=== PATIENT | male | born 1950 | race African-American/Black ===

== ENCOUNTER 2017-04-20 02:46 | Inpatient (IN) | payer MEDICARE, MEDICAID ==
[2017-04-20] VITALS (10 sets, daily range): BP systolic 69–140; BP diastolic 42–69
[~2017-04-20] VITALS: Ht 177.8 cm; Wt 68.1 kg
[~2017-04-20 02:46] MED LIST: ADULT LOW DOSE81 MG PO; ALBUTEROL 3 ML3 ML IH; AMERINET CHOICE1 G1 IV; AMLODIPINE10 M2 PO; ARICEPT10 MG GT; ARICEPT10 MG NG; ASPIRIN 81MG TA81 MG PO; AUGMENTIN 875 M1 TAB GT; BACLOFEN10 MG GT; BACLOFEN10 MG PO; BACLOFEN20 MG GT; BAZA PROTECT TP; CALMOSEPTINE1 OIN TP; CEPHALEXIN500 MG PO; CLINDAMYCI75 MG/5 M1 PO; COUMADIN5 MG GT; COUMADIN5 MG PO; COUMADIN7.5 MG GT; COUMADIN7.5 MG PO; DIASTAT ACUDIAL10 MG PR; DILANTIN-1125 MG/51 OR; DONEPEZIL 10MG10 MG PO; EYE DROPS15 ML OP; GLIPIZIDE 5MG TA5 MG GT; GLYCOPYRROLATE1 MG GT; HYDROCODONE/ACE1 TA5 PO; IMODIUM LIQ1 MG/5 ML GT; IRON325 MG GT; ISOSOURCE 1.51000 M1 FT; ISOSOURCE 1.5250 ML GT; ISOSOURCE 1.5250 ML PO; JEVITY 1.5 CA1000 ML FT; JEVITY 1.5 CA1000 ML GT; JEVITY 1.5 CA1000 ML PO; K-DUR 20MEQ TA20 MEQ GT; KCL 10% 2020 MEQ/15 NG; KEPPRA 500 MG500 MG PO; KEPPRA100 MG/M1 FT; KEPPRA100 MG/ML GT; KEPPRA500 MG GT; LEVSIN GT; LEVSIN NG; LEVSIN SL; LISINOPRIL 10MG10 MG GT; LISINOPRIL 10MG10 MG PO; LISINOPRIL 20MG20 MG FT; LISINOPRIL40 MG GT; LOPERAMIDE2 MG GT; METOCLOPRAMIDE H5 MG GT; METOPROLOL SUCC50 M1 PO; MIRTAZAPINE15 M3 GT; NAMENDA10 M1 GT; NUTREN GT; OMEPRAZOLE20 MG GT; OPTI CLEAR; OPTI CLEAR OP; PHENERGAN 2525 MG/ML IM; POTASS CHL20 MEQ/15 GT; PREVACID 30MG C30 M1 GT; PRO-STAT PROFI887 ML GT; PROSTATE HEALT1 EACH GT; PROTONIX40 MG/PACK GT; RANITIDINE HYD150 M1 GT; REMEDY WITH OL118 ML TP; ROBAFEN DM473 ML FT; ROBAFEN100 MG/5 M GT; SENNA PLUS 50 M1 TAB GT; SENOKOT TABLET1 EACH GT; SILVADENE1% TP; TAMSULOSIN HYD0.4 MG PO; TWOCAL HN 237237 ML GT; TWOCAL HN 237237 ML PO; TYLENOL ES500 MG GT; TYLENOL ES500 MG NG; WARFARIN SODIU2.5 MG GT; XARELTO20 MG GT; ZITHROMAX Z-PA250 M2 PO; ZYPREXA5 MG GT; [UNRECOGNIZED DRUG - OTHER] OP
--- OUTSIDE RECORDS SUMMARY | 2017-04-20 03:15 | External Medical Summary Rpt | CCD ---
Author Author , LORENA CARRILLO Address Unknown Phone [email or web address] Care Team Providers Care Stick Roller Name Role Phone Maurice Cloud MD, Unavailable Unavailable Maurice Cloud MD Purpose Continuity of Care Document - 02-13-2013 through 2016 Problems Code Diagnosis DOS Provider Status 486 Pneumonia D64.9 ANEMIA, UNSPECIFIED K92.2 GASTROINTES TINAL HEMORRHAGE, UNSPECIFIED L89.90 PRESSURE ULCER OF UNSPECIFIED SITE, UNSPECIFIED STAGE R50.9 FEVER, UNSPECIFIED Allergies, Adverse Reactions, Alerts Type Drug Allergy Adverse Reaction to Substance Substance Reaction Severity Tuberculin Unknown Unknown Medications Na ND Rx Da Fi Fi Am Da Di Ph RX Ph St me C No te ll ll ou ys ag ar # ys at rm s nt no ma ic us Or Da si cy ia de te s n re d Sa 63 10 0 No li 80 -0 ne 70 7- Lo 10 20 ng Fl 07 13 er us 5 h Ac 10 ti ML ve Sy ri ng e TO 63 09 0 No BR 32 -1 AM 30 0- Lo YC 30 20 ng IN 60 13 er 2 40 Ac ti MG ve /M L AL SO 00 09 0 No DI 40 -1 UM 97 0- Lo 98 20 ng CH 43 13 er LO 7 RI Ac DE ti ve 0. 9% SO ARNOLDO TI ON Sa 63 09 1 No li 80 -0 ne 70 9- Lo 10 20 ng Fl 07 13 er us 5 h Ac 10 ti ML ve Sy ri ng e TO 63 09 0 No BR 32 -0 AM 30 9- Lo YC 30 20 ng IN 60 13 er 2 40 Ac ti MG ve /M L AL ME 00 09 1 No TO 40 -0 CL 93 9- Lo OP 41 20 ng RA 40 13 er SC 1 DE Ac ti 10 ve MG /2 ML AL IP 00 09 1 No RA 48 -0 T- 70 9- Lo AL 20 20 ng BU 10 13 er T 1 0. Ac 5- ti 3( ve 2. 5) MG /3 ML RO 59 09 1 No BI 63 -0 NU 00 9- Lo L 20 20 ng 1 01 13 er MG 0 Ac TA ti BL ve ET NA 00 09 1 No ME 45 -0 ND 63 9- Lo A 21 20 ng 10 06 13 er 3 MG Ac ti TA ve BL ET KE 50 09 1 No PP 47 -0 RA 40 9- Lo 59 20 ng 50 54 13 er 0 0 MG Ac ti TA ve BL ET CO 00 09 1 No UM 05 -0 AD 60 9- Lo IN 16 20 ng 1 97 13 er 0 MG Ac ti TA ve BL ET Ba 51 09 1 No cl 07 -0 of 90 9- Lo en 66 20 ng 82 13 er 10 0 MG Ac ti Ta ve bl et SC 63 09 1 No RT 73 -0 AZ 90 9- Lo AP 35 20 ng IN 51 13 er E 0 15 Ac ti MG ve TA BL ET AZ 00 09 0 No IT 40 -0 HR 90 9- Lo OM 14 20 ng YC 41 13 er IN 1 Ac I. ti V. ve 50 0 MG AL SO 00 09 0 No DI 40 -0 UM 97 9- Lo 10 20 ng CH 10 13 er LO 2 RI Ac DE ti ve 0. 9% SO LN CL 00 09 0 No IN 40 -0 DA 94 9- Lo MY 05 20 ng CI 50 13 er N 3 15 Ac 0 ti MG ve /M L AD DV AN CE 60 09 1 No FE 50 -0 PI 50 9- Lo ME 68 20 ng 10 13 er HC 4 L Ac 2 ti GR ve AM AL Vital Signs 03-13-2013 09:53 Name Value Interpretat Reference Comment ion Range Body 98.6 [degF] Temperature BP 98 mm[Hg] Diastolic BP Systolic 168 mm[Hg] Heart 98 /min Rate/Pulse O2% 94 % Respiratory 20 /min Rate 03-13-2013 08:05 Name Value Interpretat Reference Comment ion Range Body 98.8 [degF] Temperature BP 59 mm[Hg] Diastolic BP Systolic 174 mm[Hg] Heart 94 /min Rate/Pulse O2% 90 % Respiratory 24 /min Rate 02-14-2013 10:07 Name Value Interpretat Reference Comment ion Range Body 97.9 [degF] Temperature BP 79 mm[Hg] Diastolic BP Systolic 129 mm[Hg] Heart 86 /min Rate/Pulse Respiratory 16 /min Rate 02-14-2013 08:04 Name Value Interpretat Reference Comment ion Range O2% 99 % 02-13-2013 06:11 Name Value Interpretat Reference Comment ion Range Height 175.26 cm Weight 68.153 kg Measured 02-13-2013 01:12 Name Value Interpretat Reference Comment ion Range Body 97.7 [degF] Temperature BP 86 mm[Hg] Diastolic BP Systolic 138 mm[Hg] Heart 77 /min Rate/Pulse O2% 98 % Respiratory 18 /min Rate Weight 6 [oz_av] Measured Results Labs Lab Lab Date Result Refere Interp Status Commen Order Detail nces retati t Range on Urinalysis dipstick W Reflex Microscopic panel in Urine (01-26-2017 20:20) Bacteri 3+ O complet a 017 ed [Presen 20:20 ce] in Urine sedimen t by Light microsc opy Erythro NONE 0 complet cytes 017 ed [Presen 20:20 ce] in Urine sedimen t by Light microsc opy Epithel 3-5 OCC complet ial 017 ed cells.s 20:20 quamous [Presen ce] in Urine sedimen t by Microsc opy high power field Urinalysis dipstick W Reflex Microscopic panel in Urine (01-26-2017 20:20) Appeara CLEAR CLEAR complet nce of 017 ed Urine 20:20 Bilirub NEGATIV NEG complet in 017 E ed [Presen 20:20 ce] in Urine by Test strip Erythro NEGATIV NEG complet cytes 017 E ed [Presen 20:20 ce] in Urine Color YELLOW YELLOW complet of 017 ed Urine 20:20 Ketones TRACE NEG Abnorma complet 017 l ed [Presen 20:20 ce] in Urine by Automat ed test strip Mucus NEGATIV NEG complet [Presen 017 E ed ce] in 20:20 Urine sedimen t by Light microsc opy Nitrite NEGATIV NEG complet 017 E ed [Presen 20:20 ce] in Urine by Test strip Urobili 1.0 NEG complet nogen 017 ed [Presen 20:20 ce] in Urine by Test strip Differential panel, method unspecified - (01-26-2017 19:45) Anisocy 1+ complet tosis 017 ed [Presen 19:45 ce] in Blood LYMPH 5 % 10% - Low complet 017 50% ed 19:45 Platele NORMAL complet ts 017 ed [Presen 19:45 ce] in Blood by Light microsc opy Blood product special preparation [Type] (11-13-2016 01:20) Blood BLOOD complet product 017 UNIT ed 01:20 RELEASE special prepara tion [Type] Blood type & Crossmatch panel in Blood (11-12-2016 20:28) Blood NEGATIV NEGATIV complet group 017 E E ed antibod 20:28 y screen [Presen ce] in Serum or Plasma Rh -08- POSITIV complet [Type] 017 E ed in 20:28 Blood ABO -08- O complet group 017 ed [Type] 20:28 in Blood Blood type & Crossmatch panel in Blood (11-12-2016 20:28) Major COMPAT complet crossma 017 ed tch 20:28 [interp retatio n] Major COMPAT complet crossma 017 ed tch 20:28 [interp retatio n] by Immedia te spin Blood product special preparation [Type] (11-12-2016 16:58) Blood BLOOD complet product 017 UNIT ed 16:58 RELEASE special prepara tion [Type] Blood type & Crossmatch panel in Blood (11-09-2016 19:05) Blood NEGATIV NEGATIV complet group 017 E E ed antibod 19:05 y screen [Presen ce] in Serum or Plasma Rh 06-05-2 POSITIV complet [Type] 017 E ed in 19:05 Blood ABO 06-05-2 O complet group 017 ed [Type] 19:05 in Blood Blood type & Crossmatch panel in Blood (11-09-2016 19:05) Major COMPAT complet crossma 017 ed tch 19:05 [interp retatio n] Major COMPAT complet crossma 017 ed tch 19:05 [interp retatio n] by Immedia te spin Differential panel, method unspecified - (11-09-2016 14:55) LYMPH 9 % 10% - Low complet 017 50% ed 14:55 Platele SLIGHT complet ts 017 DECREAS ed [Presen 14:55 E ce] in Blood by Light microsc opy Hemoglobin.gastrointestinal [Presence] in Stool (11-09-2016 14:40) Hemoglo POSITIV NEG complet bin.gas 017 E ed trointe 14:40 stinal [Presen ce] in Stool --1st specime n COMPREHENSIVE METABOLIC PANEL (03-13-2013 08:54) Glucose 106 74-106 complet 013 mg/dL ed Bld-mCn 08:54 c BUN 11 7-18 complet Bld-mCn 013 mg/dL ed c 08:54 Creat 1.0 0.8-1.3 complet SerPl-m 013 mg/dL ed Cnc 08:54 ESTIMAT 69 50-200 complet ED 013 ML/MIN ed CREATIN 08:54 INE CLEARAN CE GFR 75 Greater complet (ESTIMA 013 ML/MIN than ed ARACELI) 08:54 60 Sodium 140 136-145 complet SerPl-s 013 mmoL/L ed Cnc 08:54 Potassi 4.0 3.5-5.1 complet um 013 mmoL/L ed SerPl-s 08:54 Cnc Chlorid 103 98-107 complet e 013 mmoL/L ed SerPl-s 08:54 Cnc CO2 30 21.0-32 complet SerPl-s 013 mmoL/L .0 ed Cnc 08:54 Calcium 8.5 8.5-10. complet 013 mg/dL 1 ed SerPl-m 08:54 Cnc Prot 7.8 6.4-8.2 complet SerPl-m 013 gm/dL ed Cnc 08:54 Albumin 3.5 3.4-5.0 complet 013 gm/dL ed SerPl-m 08:54 Cnc Globuli 10-07-2 4.3 1.3-3.2 complet n 013 gm/dL ed Ser-mCn 08:54 c Albumin 0.8 UNK 1.1-1.8 complet /Glob 013 ed SerPl-m 08:54 Rto Bilirub 0.3 0.2-1.0 complet 013 mg/dL ed SerPl-m 08:54 Cnc AST 44 U/L 15-37 complet SerPl-c 013 ed Cnc 08:54 ALT 86 U/L 30-65 complet SerPl-c 013 ed Cnc 08:54 ALP 186 U/L 50-136 complet SerPl-c 013 ed Cnc 08:54 Levetiracetam SerPl-mCnc (03-13-2013 08:54) Levetir 15.2 () complet acetam 013 mcg/mL ed SerPl-m 08:54 Cnc PROTIME/INR (03-13-2013 08:54) PROTHRO 23.4 9.9-11. complet MBIN 013 SECONDS 6 ed TIME 08:54 INR Bld 2.17 0.9-1.1 complet 013 UNK ed 08:54 CBC with AUTO DIFF (03-13-2013 08:54) WBC # 07-2 6.0 4.8-10. complet Bld 013 K/MM3 8 ed Auto 08:54 RBC # 07-2 4.99 4.6-6.2 complet Bld 013 M/mm3 ed Auto 08:54 Hgb 03-13-2 16.4 14.1-18 complet Bld-mCn 013 g/dL .0 ed c 08:54 Hct Fr 49.3 % 42.0-52 complet Bld 013 .0 ed 08:54 MCV RBC 98.8 fl 82.2-97 complet 013 .8 ed 08:54 MCH RBC 32.8 pg 27-31.2 complet Qn 013 ed Auto 08:54 MEAN 33.2 31.8-35 complet CORPUSC 013 g/dl .4 ed ULAR 08:54 HGB CONC RDW RBC 10-07-2 14.9 % 11.5-17 complet Auto 013 .5 ed 08:54 Platele 10-07-2 84 142-424 complet t Bld 013 K/mm3 ed Ql 08:54 Manual MEAN 10-07-2 10.3 fl 7.4-10. complet PLATELE 013 4 ed T 08:54 VOLUME Granulo 10-07-2 67.2 % 37.0-80 complet cytes 013 .0 ed Fr Bld 08:54 Auto LYMPH % 10-07-2 21.7 % 10-50 complet 013 ed 08:54 Monocyt 10-07-2 6.3 % 1.7-9.3 complet es Fr 013 ed Bld 08:54 Auto Eosinop 10-07-2 4.4 % 0.1-12. complet hil Fr 013 0 ed Bld 08:54 Auto Basophi 10-07-2 0.4 % 0.1-2.0 complet ls Fr 013 ed Bld 08:54 Auto Granulo 10-07-2 4.0 1.3-8.0 complet cytes # 013 K/mm3 ed Bld 08:54 Auto Lymphoc 10-07-2 1.3 0.7-4.5 complet ytes Fr 013 K/mm3 ed Bld 08:54 Auto Monocyt 10-07-2 0.4 0.1-1.0 complet es # 013 K/mm3 ed Bld 08:54 Auto Eosinop 10-07-2 0.3 0.0-0.4 complet hil # 013 K/mm3 ed Bld 08:54 Auto Basophi 10-07-2 0.0 0-0.2 complet ls # 013 K/MM3 ed Bld 08:54 Auto CBC with AUTO DIFF (02-14-2013 06:20) WBC # -10-2 5.3 4.8-10. complet Bld 013 K/MM3 8 ed Auto 06:20 RBC # -10-2 4.27 4.6-6.2 complet Bld 013 M/mm3 ed Auto 06:20 Hgb 02-14- 14.1 14.1-18 complet Bld-mCn 013 g/dL .0 ed c 06:20 Hct Fr 42.9 % 42.0-52 complet Bld 013 .0 ed 06:20 MCV RBC 09-10-2 100.3 82.2-97 complet 013 fl .8 ed 06:20 MCH RBC 10-2 33.1 pg 27-31.2 complet Qn 013 ed Auto 06:20 MEAN 10-2 33.0 31.8-35 complet CORPUSC 013 g/dl .4 ed ULAR 06:20 HGB CONC RDW RBC 10-2 14.4 % 11.5-17 complet Auto 013 .5 ed 06:20 Platele -10-2 121 142-424 complet t Bld 013 K/mm3 ed Ql 06:20 Manual MEAN 9.5 fl 7.4-10. complet PLATELE 013 4 ed T 06:20 VOLUME Granulo -10-2 63.8 % 37.0-80 complet cytes 013 .0 ed Fr Bld 06:20 Auto LYMPH % 09-10-2 23.3 % 10-50 complet 013 ed 06:20 Monocyt 09-10-2 8.7 % 1.7-9.3 complet es Fr 013 ed Bld 06:20 Auto Eosinop 09-10-2 4.0 % 0.1-12. complet hil Fr 013 0 ed Bld 06:20 Auto Basophi 09-10-2 0.2 % 0.1-2.0 complet ls Fr 013 ed Bld 06:20 Auto Granulo 09-10-2 3.4 1.3-8.0 complet cytes # 013 K/mm3 ed Bld 06:20 Auto Lymphoc -10-2 1.2 0.7-4.5 complet ytes Fr 013 K/mm3 ed Bld 06:20 Auto Monocyt 09-10-2 0.5 0.1-1.0 complet es # 013 K/mm3 ed Bld 06:20 Auto Eosinop 09-10-2 0.2 0.0-0.4 complet hil # 013 K/mm3 ed Bld 06:20 Auto Basophi 09-10-2 0.0 0-0.2 complet ls # 013 K/MM3 ed Bld 06:20 Auto Tobramycin Ran SerPl-mCnc (02-13-2013 18:00) Tobramy 02-13-2 2.1 complet michele Ran 013 ug/mL ed 18:00 SerPl-m Cnc Tobramycin Ran SerPl-mCnc (02-13-2013 10:35) Tobramy 7.9 complet michele Ran 013 ug/mL ed 10:35 SerPl-m Cnc COMPREHENSIVE METABOLIC PANEL (02-13-2013 01:18) Glucose 107 74-106 complet 013 mg/dL ed Bld-mCn 01:18 c BUN 10 7-18 complet Bld-mCn 013 mg/dL ed c 01:18 Creat 1.0 0.8-1.3 complet SerPl-m 013 mg/dL ed Cnc 01:18 ESTIMAT 66 50-200 complet ED 013 ML/MIN ed CREATIN 01:18 INE CLEARAN CE GFR 75 Greater complet (ESTIMA 013 ML/MIN than ed ARACELI) 01:18 60 Sodium 137 136-145 complet SerPl-s 013 mmoL/L ed Cnc 01:18 Potassi 3.8 3.5-5.1 complet um 013 mmoL/L ed SerPl-s 01:18 Cnc Chlorid 102 98-107 complet e 013 mmoL/L ed SerPl-s 01:18 Cnc CO2 31 21.0-32 complet SerPl-s 013 mmoL/L .0 ed Cnc 01:18 Calcium 8.0 8.5-10. complet 013 mg/dL 1 ed SerPl-m 01:18 Cnc Prot 7.2 6.4-8.2 complet SerPl-m 013 gm/dL ed Cnc 01:18 Albumin 2.9 3.4-5.0 complet 013 gm/dL ed SerPl-m 01:18 Cnc Globuli 4.3 1.3-3.2 complet n 013 gm/dL ed Ser-mCn 01:18 c Albumin 0.7 UNK 1.1-1.8 complet /Glob 013 ed SerPl-m 01:18 Rto Bilirub 0.3 0.2-1.0 complet 013 mg/dL ed SerPl-m 01:18 Cnc AST 32 U/L 15-37 complet SerPl-c 013 ed Cnc 01:18 ALT 47 U/L 30-65 complet SerPl-c 013 ed Cnc 01:18 ALP 150 U/L 50-136 complet SerPl-c 013 ed Cnc 01:18 PROTIME/INR (02-13-2013 01:18) PROTHRO 02-13- 26.8 9.9-11. complet MBIN 013 SECONDS 6 ed TIME 01:18 INR Bld 2.48 0.9-1.1 complet 013 UNK ed 01:18 CBC with AUTO DIFF (02-13-2013 01:18) WBC # 02-13- 5.0 4.8-10. complet Bld 013 K/MM3 8 ed Auto 01:18 RBC # 02-13- 4.43 4.6-6.2 complet Bld 013 M/mm3 ed Auto 01:18 Hgb 14.6 14.1-18 complet Bld-mCn 013 g/dL .0 ed c 01:18 Hct Fr 44.0 % 42.0-52 complet Bld 013 .0 ed 01:18 MCV RBC 99.4 fl 82.2-97 complet 013 .8 ed 01:18 MCH RBC 33.1 pg 27-31.2 complet Qn 013 ed Auto 01:18 MEAN 33.3 31.8-35 complet CORPUSC 013 g/dl .4 ed ULAR 01:18 HGB CONC RDW RBC 14.2 % 11.5-17 complet Auto 013 .5 ed 01:18 Platele 120 142-424 complet t Bld 013 K/mm3 ed Ql 01:18 Manual MEAN 9.6 fl 7.4-10. complet PLATELE 013 4 ed T 01:18 VOLUME Granulo 50.0 % 37.0-80 complet cytes 013 .0 ed Fr Bld 01:18 Auto LYMPH % 37.5 % 10-50 complet 013 ed 01:18 Monocyt 8.2 % 1.7-9.3 complet es Fr 013 ed Bld 01:18 Auto Eosinop 4.0 % 0.1-12. complet hil Fr 013 0 ed Bld 01:18 Auto Basophi 02-13-2 0.4 % 0.1-2.0 complet ls Fr 013 ed Bld 01:18 Auto Granulo --2 2.5 1.3-8.0 complet cytes # 013 K/mm3 ed Bld 01:18 Auto Lymphoc 09-2 1.9 0.7-4.5 complet ytes Fr 013 K/mm3 ed Bld 01:18 Auto Monocyt 09-2 0.4 0.1-1.0 complet es # 013 K/mm3 ed Bld 01:18 Auto Eosinop 02-13-2 0.2 0.0-0.4 complet hil # 013 K/mm3 ed Bld 01:18 Auto Basophi 02-13-2 0.0 0-0.2 complet ls # 013 K/MM3 ed Bld 01:18 Auto MYCOPLASMA IGM (RAPID) (02-13-2013 01:18) MYCOPLA 02-13-2 NON-MATTHEW NONREAC complet SMA IGM 013 CTIVE TIVE ed 01:18 (RAPID) Encounters Encounter Start End Date Code Location Performer Type Date Emergency TRAE Flynn MD (ER) 3 07:50 3 10:29 [facility] Inpatient JOVANNY Cloud MD (IN) 3 01:49 3 10:10 [facility]
--- OUTSIDE RECORDS SUMMARY | 2017-04-20 03:15 | External Medical Summary Rpt | CCD ---
Author Author , LORENA CARRILLO Address Unknown Phone [email or web address] Care Team Providers Care Blade Grader Operator Name Role Phone Maurice Cloud MD, Unavailable Unavailable Maurice Cloud MD Purpose Continuity of Care Document - 02-13-2013 through 2016 Problems Code Diagnosis DOS Provider Status 486 Pneumonia [facility] D64.9 ANEMIA, UNSPECIFIED K92.2 GASTROINTES TINAL HEMORRHAGE, [...] 41 20 ng RA 40 13 er WI 1 DE Ac ti 10 ve MG [...] MG Ac ti Ta ve bl et [place] 63 09 1 No RT 73 -0 [...] Flynn MD (ER) 3 07:50 3 10:29 [facility] Inpatient JOVANNY Cloud MD ([place]) 3 01:49 3 10:10 [facility]
--- OUTSIDE RECORDS SUMMARY | 2017-04-20 03:16 | External Medical Summary Rpt | CCD ---
Demographics Preferred Language Swedish Marital Status Unknown Sikh Affiliation Unknown Race Unknown Ethnic Group Unknown Author Author , LORENA CARRILLO Address Unknown Phone Immunization No patient found.
--- OUTSIDE RECORDS SUMMARY | 2017-04-20 03:16 | External Medical Summary Rpt | CCD ---
Demographics Preferred Language Cambodian Marital Status Unknown Advent Affiliation Unknown Race Unknown Ethnic Group Unknown Author Author , LORENA CARRILLO Address Unknown Phone Immunization No patient found.
--- OUTSIDE RECORDS SUMMARY | 2017-04-20 03:19 | External Medical Summary Rpt ---
Author Author LORE[employer] Leila, [employer] Address Unknown Phone Unavailable Results Glucose [Mass/volume] in Capillary blood by Glucometer Observa Value Referen Units Interpr Notes Date ti ce etation Range Glucose 70 - 110 mg/dl High No Jan 31 [Mass/vol informati 2017 6:13 ume] in on in AM Capillary source blood by data Glucomete r Glucose [Mass/volume] in Capillary blood by Glucometer Observa Value Referen Units Interpr Notes Date ti etation Range Glucose 70 - 110 mg/dl High No Feb 03 [Mass/vol informati 2017 9:08 ume] in on in PM Capillary source blood by data Glucomete r Glucose [Mass/volume] in Capillary blood by Glucometer Observa Value Referen Units Interpr Notes Date ti etation Range Glucose 70 - 110 mg/dl High No Feb 03 [Mass/vol informati 2017 4:26 ume] in on in PM Capillary source blood by data Glucomete r Glucose [Mass/volume] in Capillary blood by Glucometer Observa Value Referen Units Interpr Notes Date ti etation Range Glucose 70 - 110 mg/dl High No Feb 03 [Mass/vol informati 2017 ume] in on in 11:11 AM Capillary source blood by data Glucomete r Glucose [Mass/volume] in Capillary blood by Glucometer Observa Value Referen Units Interpr Notes Date ti ce etation Range Glucose 70 - 110 mg/dl High No Feb 03 [Mass/vol informati 2017 6:11 ume] in on in AM Capillary source blood by data Glucomete r Glucose [Mass/volume] in Capillary blood by Glucometer Observa Value Referen Units Interpr Notes Date ti ce etation Range Glucose 70 - 110 mg/dl High No Feb 02 [Mass/vol informati 2017 9:13 ume] in on in PM Capillary source blood by data Glucomete r Glucose [Mass/volume] in Capillary blood by Glucometer Observa Value Referen Units Interpr Notes Date tion ce etation Range Glucose 70 - 110 mg/dl High No Feb 02 [Mass/vol informati 2016 5:19 ume] in on in PM Capillary source blood by data Glucomete r Glucose [Mass/volume] in Capillary blood by Glucometer Observa Value Referen Units Interpr Notes Date tion ce etation Range Glucose 70 - 110 mg/dl High No Feb 02 [Mass/vol informati 2016 ume] in on in 12:24 PM Capillary source blood by data Glucomete r Basic metabolic panel in Blood Observa Value Referen Units Interpr Notes Date ti ce etation Range Urea 7 - 18 mg/dL Low No Feb 02 nitrogen informati 2016 6:30 [Mass/vol on in AM ume] in source Serum or data Plasma Calcium 8.5 - mg/dL Low No Feb 02 [Mass/vol 10.1 informati 2016 6:30 ume] in on in AM Serum or source Plasma data Chloride 98 - 107 mmoL/L Normal No Feb 02 [Moles/vo informati 2016 6:30 lume] in on in AM Serum or source Plasma data Carbon 21.0 - mmoL/L High No Feb 02 dioxide, 32.0 informati 2017 6:30 total on in AM [Moles/vo source lume] in data Serum or Plasma Creatinin 0.70 - mg/dL Normal No Feb 02 e 1.30 informati 2017 6:30 [Mass/vol on in AM ume] in source Serum or data Plasma Creatinin 50 - 200 ML/MIN Normal No Feb 02 e renal informati 2016 6:30 clearance on in AM source predicted data by Cockcroft -Gault formula Estimated >60 ML/MIN No REFERENCE Feb 02 informati RANGE: 2017 6:30 glomerula on in >60 AM r source ML/MIN/1. filtratio data 73 SQUARE n rate METERSIf (GF this patient is -A merican, then multiply theresult by 1.210. Glucose 74 - 106 mg/dL High No Feb 02 [Mass/vol informati 2016 6:30 ume] in on in AM Serum or source Plasma data Potassium 3.5 - 5.1 mmoL/L Low No Feb 02 informati 2016 6:30 [Moles/vo on in AM lume] in source Serum or data Plasma Sodium 136 - 145 mmoL/L Normal No Feb 02 [Moles/vo informati 2017 6:30 lume] in on in AM Serum or source Plasma data Glucose [Mass/volume] in Capillary blood by Glucometer Observa Value Referen Units Interpr Notes Date tion ce etation Range Glucose 70 - 110 mg/dl High No Feb 02 [Mass/vol informati 2016 5:53 ume] in on in AM Capillary source blood by data Glucomete r Glucose [Mass/volume] in Capillary blood by Glucometer Observa Value Referen Units Interpr Notes Date tion ce etation Range Glucose 70 - 110 mg/dl Normal No Feb 01 [Mass/vol informati 2016 9:36 ume] in on in PM Capillary source blood by data Glucomete r Glucose [Mass/volume] in Capillary blood by Glucometer Observa Value Referen Units Interpr Notes Date tion ce etation Range Glucose 70 - 110 mg/dl Normal No Feb 01 [Mass/vol informati 2016 5:32 ume] in on in PM Capillary source blood by data Glucomete r Glucose [Mass/volume] in Capillary blood by Glucometer Observa Value Referen Units Interpr Notes Date tion ce etation Range Glucose 70 - 110 mg/dl Normal No Feb 01 [Mass/vol informati 2016 ume] in on in 12:25 PM Capillary source blood by data Glucomete r Basic metabolic panel in Blood Observa Value Referen Units Interpr Notes Date tion ce etation Range Urea 7 - 18 mg/dL Low No Feb 01 nitrogen informati 2017 6:56 [Mass/vol on in AM ume] in source Serum or data Plasma Calcium 8.5 - mg/dL Low No Feb 01 [Mass/vol 10.1 informati 2017 6:56 ume] in on in AM Serum or source Plasma data Chloride 98 - 107 mmoL/L Normal No Feb 01 [Moles/vo informati 2017 6:56 lume] in on in AM Serum or source Plasma data Carbon 21.0 - mmoL/L High No Feb 01 dioxide, 32.0 informati 2017 6:56 total on in AM [Moles/vo source lume] in data Serum or Plasma Creatinin 0.70 - mg/dL Low No Feb 01 e 1.30 informati 2017 6:56 [Mass/vol on in AM ume] in source Serum or data Plasma Creatinin 50 - 200 ML/MIN Normal No Feb 01 e renal informati 2017 6:56 clearance on in AM source predicted data by Cockcroft -Gault formula Estimated >60 ML/MIN No REFERENCE Feb 01 informati RANGE: 2017 6:56 glomerula on in >60 AM r source ML/MIN/1. filtratio data 73 SQUARE n rate METERSIf (GF this patient is -A merican, then multiply theresult by 1.210. Glucose 74 - 106 mg/dL Low No Feb 01 [Mass/vol informati 2017 6:56 ume] in on in AM Serum or source Plasma data Potassium 3.5 - 5.1 mmoL/L Low alert Feb 01 2017 6:56 [Moles/vo CRITICAL AM lume] in RESULTS Serum or Plasma RESU LTS CALLED TO: SEDRCIK 02/01/17 0725 June Suggs e Sodium 136 - 145 mmoL/L Normal No Feb 01 [Moles/vo informati 2017 6:56 lume] in on in AM Serum or source Plasma data CBC W Auto Differential panel in Blood Observa Value Referen Units Interpr Notes Date tion ce etation Range Basophils 0 - 0.2 K/MM3 Normal No Feb 01 informati 2016 6:56 [#/volume on in AM ] in source Blood by data Automated count Basophils 0.1 - 2.0 % Normal No Feb 01 /100 informati 2017 6:56 leukocyte on in AM s in source Blood by data Automated count Eosinophi 0.0 - 0.4 K/mm3 Normal No Feb 01 ls informati 2016 6:56 [#/volume on in AM ] in source Blood by data Automated count Eosinophi 0.1 - % Normal No Feb 01 ls/100 12.0 informati 2016 6:56 leukocyte on in AM s in source Blood by data Automated count Granulocy 1.3 - 8.0 K/mm3 Normal No Feb 01 keyshawn informati 2016 6:56 [#/volume on in AM ] in source Blood by data Automated count Granulocy 37.0 - % Normal No Feb 01 keyshawn/100 80.0 informati 2016 6:56 leukocyte on in AM s in source Blood by data Automated count Hematocri 42.0 - % Low No Feb 01 t [Volume 52.0 informati 2017 6:56 on in AM Fraction] source of Blood data Hemoglobi 14.1 - g/dL Low No Feb 01 n 18.0 informati 2017 6:56 [Mass/vol on in AM ume] in source Blood data Lymphocyt 0.7 - 4.5 K/mm3 Normal No Feb 01 es informati 2017 6:56 [#/volume on in AM ] in source Unspecifi data ed specimen by Automated count Lymphocyt 10 - 50 % Normal No Feb 01 es informati 2017 6:56 [#/volume on in AM ] in source Unspecifi data ed specimen by Automated count Erythrocy 27 - 31.2 pg Normal No Feb 01 te mean informati 2017 6:56 corpuscul on in AM ar source hemoglobi data n [Entitic mass] Erythrocy 31.8 - g/dl Normal No Feb 01 te mean 35.4 informati 2017 6:56 corpuscul on in AM ar source hemoglobi data n concentra tion [Mass/vol ume] by Automated count Erythrocy 82.2 - fl Normal No Feb 01 te mean 97.8 informati 2017 6:56 corpuscul on in AM ar volume source [Entitic data volume] by Automated count Monocytes 0.1 - 1.0 K/mm3 Normal No Feb 01 informati 2017 6:56 [#/volume on in AM ] in source Blood by data Automated count Monocytes 1.7 - 9.3 % Normal No Feb 01 /100 informati 2017 6:56 leukocyte on in AM s in source Blood by data Automated count Platelet 7.4 - fl High Feb 01 mean 10.4 informati 2017 6:56 volume on in AM [Entitic source volume] data in Blood by Automated count Platelets 142 - 424 K/mm3 Low No Feb 01 informati 2017 6:56 [#/volume on in AM ] in source Blood data Erythrocy 4.6 - 6.2 M/mm3 Low No Feb 01 keyshawn informati 2017 6:56 [#/volume on in AM ] in source Amniotic data fluid Erythrocy 11.5 - % Normal No Feb 01 te 17.5 informati 2017 6:56 distribut on in AM ion width source [Entitic data volume] by Automated count Leukocyte 4.8 - K/MM3 Normal No Feb 01 s 10.8 informati 2017 6:56 [#/volume on in AM ] in source Blood data Glucose [Mass/volume] in Capillary blood by Glucometer Observa Value Referen Units Interpr Notes Date tion ce etation Range Glucose 70 - 110 mg/dl Normal No Feb 01 [Mass/vol informati 2017 6:07 ume] in on in AM Capillary source blood by data Glucomete r Glucose [Mass/volume] in Capillary blood by Glucometer Observa Value Referen Units Interpr Notes Date tion ce etation Range Glucose 70 - 110 mg/dl Normal No Jan 31 [Mass/vol informati 2016 8:29 ume] in on in PM Capillary source blood by data Glucomete r Glucose [Mass/volume] in Capillary blood by Glucometer Observa Value Referen Units Interpr Notes Date tion ce etation Range Glucose 70 - 110 mg/dl Normal No Jan 31 [Mass/vol informati 2016 4:14 ume] in on in PM Capillary source blood by data Glucomete r Glucose [Mass/volume] in Capillary blood by Glucometer Observa Value Referen Units Interpr Notes Date tion ce etation Range Glucose 70 - 110 mg/dl No No Jan 31 [Mass/vol informati informati 2017 ume] in on in on in 11:09 AM Capillary source source blood by data data Glucomete r Vancomycin [Mass/volume] in Serum or Plasma --trough Observa Value Referen Units Interpr Notes Date tion ce etation Range COMMENTS TO SIGNAL REPAIRER: PLEASE CALL PHARMACY WITH RESULTS Vancomyci 5.0 - mcg/mL High No Jan 31 n 10.0 informati 2017 8:33 [Mass/vol on in AM ume] in source Serum or data Plasma --trough Glucose [Mass/volume] in Capillary blood by Glucometer Observa Value Referen Units Interpr Notes Date tion ce etation Range Glucose 70 - 110 mg/dl High No Jan 31 [Mass/vol informati 2017 6:27 ume] in on in AM Capillary source blood by data Glucomete r Glucose [Mass/volume] in Capillary blood by Glucometer Observa Value Referen Units Interpr Notes Date tion ce etation Range Glucose 70 - 110 mg/dl High No Jan 30 [Mass/vol informati 2017 7:54 ume] in on in PM Capillary source blood by data Glucomete r Glucose [Mass/volume] in Capillary blood by Glucometer Observa Value Referen Units Interpr Notes Date tion ce etation Range Glucose 70 - 110 mg/dl High No Jan 30 [Mass/vol informati 2016 4:32 ume] in on in PM Capillary source blood by data Glucomete r Glucose [Mass/volume] in Capillary blood by Glucometer Observa Value Referen Units Interpr Notes Date tion ce etation Range Glucose 70 - 110 mg/dl Normal No Jan 30 [Mass/vol informati 2016 ume] in on in 11:18 AM Capillary source blood by data Glucomete r Glucose [Mass/volume] in Capillary blood by Glucometer Observa Value Referen Units Interpr Notes Date tion ce etation Range Glucose 70 - 110 mg/dl Normal No Jan 30 [Mass/vol informati 2016 5:59 ume] in on in AM Capillary source blood by data Glucomete r Glucose [Mass/volume] in Capillary blood by Glucometer Observa Value Referen Units Interpr Notes Date ti ce etation Range Glucose 70 - 110 mg/dl High No Jan 29 [Mass/vol informati 2016 7:56 ume] in on in PM Capillary source blood by data Glucomete r Glucose [Mass/volume] in Capillary blood by Glucometer Observa Value Referen Units Interpr Notes Date ti ce etation Range Glucose 70 - 110 mg/dl High No Jan 29 [Mass/vol informati 2016 5:20 ume] in on in PM Capillary source blood by data Glucomete r Glucose [Mass/volume] in Capillary blood by Glucometer Observa Value Referen Units Interpr Notes Date ti ce etation Range Glucose 70 - 110 mg/dl High No Jan 29 [Mass/vol informati 2016 ume] in on in 11:11 AM Capillary source blood by data Glucomete r Basic metabolic panel in Blood Observa Value Referen Units Interpr Notes Date tion ce etation Range Urea 7 - 18 mg/dL No No Jan 29 nitrogen informati informati 2017 6:30 [Mass/vol on in on in AM ume] in source source Serum or data data Plasma Calcium 8.5 - mg/dL Low No Jan 29 [Mass/vol 10.1 informati 2017 6:30 ume] in on in AM Serum or source Plasma data Chloride 98 - 107 mmoL/L Normal No Jan 29 [Moles/vo informati 2017 6:30 lume] in on in AM Serum or source Plasma data Carbon 21.0 - mmoL/L Normal No Jan 29 dioxide, 32.0 informati 2016 6:30 total on in AM [Moles/vo source lume] in data Serum or Plasma Creatinin 0.70 - mg/dL No No Jan 29 e 1.30 informati informati 2016 6:30 [Mass/vol on in on in AM ume] in source source Serum or data data Plasma Creatinin 50 - 200 ML/MIN No No Jan 29 e renal informati informati 2016 6:30 clearance on in on in AM source source predicted data data by Cockcroft -Gault formula Estimated >60 ML/MIN No REFERENCE Jan 29 informati RANGE: 2017 6:30 glomerula on in >60 AM r source ML/MIN/1. filtratio data 73 SQUARE n rate METERSIf (GF this patient is -A merican, then multiply theresult by 1.210. Glucose 74 - 106 mg/dL High No Jan 29 [Mass/vol informati 2016 6:30 ume] in on in AM Serum or source Plasma data Potassium 3.5 - 5.1 mmoL/L Normal No Jan 29 informati 2016 6:30 [Moles/vo on in AM lume] in source Serum or data Plasma Sodium 136 - 145 mmoL/L Normal No Jan 29 [Moles/vo informati 2016 6:30 lume] in on in AM Serum or source Plasma data CBC W Auto Differential panel in Blood Observa Value Referen Units Interpr Notes Date tion ce etation Range Basophils 0 - 0.2 K/MM3 Normal No Jan 29 informati 2016 6:30 [#/volume on in AM ] in source Blood by data Automated count Basophils 0.1 - 2.0 % Normal No Jan 29 / informati 2016 6:30 leukocyte on in AM s in source Blood by data Automated count Eosinophi 0.0 - 0.4 K/mm3 Normal No Jan 29 ls informati 2016 6:30 [#/volume on in AM ] in source Blood by data Automated count Eosinophi 0.1 - % Normal No Jan 29 ls/100 12.0 informati 2016 6:30 leukocyte on in AM s in source Blood by data Automated count Granulocy 1.3 - 8.0 K/mm3 Normal No Jan 29 keyshawn informati 2016 6:30 [#/volume on in AM ] in source Blood by data Automated count Granulocy 37.0 - % Normal No Jan 29 keyshawn/100 80.0 informati 2017 6:30 leukocyte on in AM s in source Blood by data Automated count Hematocri 42.0 - % Low No Jan 29 t [Volume 52.0 informati 2017 6:30 on in AM Fraction] source of Blood data Hemoglobi 14.1 - g/dL Low No Jan 29 n 18.0 informati 2017 6:30 [Mass/vol on in AM ume] in source Blood data Lymphocyt 0.7 - 4.5 K/mm3 Normal No Jan 29 es informati 2017 6:30 [#/volume on in AM ] in source Unspecifi data ed specimen by Automated count Lymphocyt 10 - 50 % Normal No Jan 29 es informati 2016 6:30 [#/volume on in AM ] in source Unspecifi data ed specimen by Automated count Erythrocy 27 - 31.2 pg Normal No Jan 29 te mean informati 2016 6:30 corpuscul on in AM ar source hemoglobi data n [Entitic mass] Erythrocy 31.8 - g/dl Low No Jan 29 te mean 35.4 informati 2017 6:30 corpuscul on in AM ar source hemoglobi data n concentra tion [Mass/vol ume] by Automated count Erythrocy 82.2 - fl Normal No Jan 29 te mean 97.8 informati 2017 6:30 corpuscul on in AM ar volume source [Entitic data volume] by Automated count Monocytes 0.1 - 1.0 K/mm3 Normal No Jan 29 informati 2017 6:30 [#/volume on in AM ] in source Blood by data Automated count Monocytes 1.7 - 9.3 % Normal No Jan 29 /100 informati 2017 6:30 leukocyte on in AM s in source Blood by data Automated count Platelet 7.4 - fl High No Jan 29 mean 10.4 informati 2017 6:30 volume on in AM [Entitic source volume] data in Blood by Automated count Platelets 142 - 424 K/mm3 Low No Jan 29 informati 2017 6:30 [#/volume on in AM ] in source Blood data Erythrocy 4.6 - 6.2 M/mm3 Low No Jan 29 keyshawn informati 2017 6:30 [#/volume on in AM ] in source Amniotic data fluid Erythrocy 11.5 - % Normal No Jan 29 te 17.5 informati 2016 6:30 distribut on in AM ion width source [Entitic data volume] by Automated count Leukocyte 4.8 - K/MM3 Normal No Jan 29 s 10.8 informati 2016 6:30 [#/volume on in AM ] in source Blood data Glucose [Mass/volume] in Capillary blood by Glucometer Observa Value Referen Units Interpr Notes Date tion ce etation Range Glucose 70 - 110 mg/dl High No Jan 29 [Mass/vol informati 2016 6:10 ume] in on in AM Capillary source blood by data Glucomete r Glucose [Mass/volume] in Capillary blood by Glucometer Observa Value Referen Units Interpr Notes Date tion ce etation Range Glucose 70 - 110 mg/dl High No Jan 28 [Mass/vol informati 2016 8:00 ume] in on in PM Capillary source blood by data Glucomete r Glucose [Mass/volume] in Capillary blood by Glucometer Observa Value Referen Units Interpr Notes Date ti ce etation Range Glucose 70 - 110 mg/dl High No Jan 28 [Mass/vol informati 2016 5:19 ume] in on in PM Capillary source blood by data Glucomete r Glucose [Mass/volume] in Capillary blood by Glucometer Observa Value Referen Units Interpr Notes Date ti ce etation Range Glucose 70 - 110 mg/dl High No Jan 28 [Mass/vol informati 2016 ume] in on in 12:21 PM Capillary source blood by data Glucomete r Vancomycin [Mass/volume] in Serum or Plasma --trough Observa Value Referen Units Interpr Notes Date ti ce etation Range Vancomyci 5.0 - mcg/mL High No Jan 28 n 10.0 informati 2016 8:25 [Mass/vol on in AM ume] in source Serum or data Plasma --trough CBC W Auto Differential panel in Blood Observa Value Referen Units Interpr Notes Date tion ce etation Range Basophils 0 - 0.2 K/MM3 Normal No Jan 28 informati 2016 7:18 [#/volume on in AM ] in source Blood by data Automated count Basophils 0.1 - 2.0 % Normal No Jan 28 / informati 2016 7:18 leukocyte on in AM s in source Blood by data Automated count Eosinophi 0.0 - 0.4 K/mm3 Normal No Jan 24 ls informati 2016 7:18 [#/volume on in AM ] in source Blood by data Automated count Eosinophi 0.1 - % Normal No Jan 28 ls/100 12.0 informati 2017 7:18 leukocyte on in AM s in source Blood by data Automated count Granulocy 1.3 - 8.0 K/mm3 Normal No Jan 24 keyshawn informati 2016 7:18 [#/volume on in AM ] in source Blood by data Automated count Granulocy 37.0 - % Normal No Jan 28 keyshawn/100 80.0 informati 2016 7:18 leukocyte on in AM s in source Blood by data Automated count Hematocri 42.0 - % Low No Jan 28 t [Volume 52.0 informati 2016 7:18 on in AM Fraction] source of Blood data Hemoglobi 14.1 - g/dL Low No Jan 28 n 18.0 informati 2016 7:18 [Mass/vol on in AM ume] in source Blood data Lymphocyt 0.7 - 4.5 K/mm3 Low No Jan 28 es informati 2017 7:18 [#/volume on in AM ] in source Unspecifi data ed specimen by Automated count Lymphocyt 10 - 50 % Low No Jan 28 es informati 2017 7:18 [#/volume on in AM ] in source Unspecifi data ed specimen by Automated count Erythrocy 27 - 31.2 pg Normal No Jan 28 te mean informati 2016 7:18 corpuscul on in AM ar source hemoglobi data n [Entitic mass] Erythrocy 31.8 - g/dl Low No Jan 28 te mean 35.4 informati 2016 7:18 corpuscul on in AM ar source hemoglobi data n concentra tion [Mass/vol ume] by Automated count Erythrocy 82.2 - fl Normal No Jan 28 te mean 97.8 informati 2016 7:18 corpuscul on in AM ar volume source [Entitic data volume] by Automated count Monocytes 0.1 - 1.0 K/mm3 Normal No Jan 28 informati 2016 7:18 [#/volume on in AM ] in source Blood by data Automated count Monocytes 1.7 - 9.3 % Normal No Jan 24 /100 informati 2016 7:18 leukocyte on in AM s in source Blood by data Automated count Platelet 7.4 - fl High No Jan 28 mean 10.4 informati 2017 7:18 volume on in AM [Entitic source volume] data in Blood by Automated count Platelets 142 - 424 K/mm3 Low No Jan 28 informati 2017 7:18 [#/volume on in AM ] in source Blood data Erythrocy 4.6 - 6.2 M/mm3 Low No Jan 28 keyshawn informati 2017 7:18 [#/volume on in AM ] in source Amniotic data fluid Erythrocy 11.5 - % Normal No Jan 28 te 17.5 informati 2016 7:18 distribut on in AM ion width source [Entitic data volume] by Automated count Leukocyte 4.8 - K/MM3 No No Jan 28 s 10.8 informati informati 2017 7:18 [#/volume on in on in AM ] in source source Blood data data Glucose [Mass/volume] in Capillary blood by Glucometer Observa Value Referen Units Interpr Notes Date tion ce etation Range Glucose 70 - 110 mg/dl High No Jan 28 [Mass/vol informati 2016 6:44 ume] in on in AM Capillary source blood by data Glucomete r Glucose [Mass/volume] in Capillary blood by Glucometer Observa Value Referen Units Interpr Notes Date tion ce etation Range Glucose 70 - 110 mg/dl High No Jan 27 [Mass/vol informati 2016 ume] in on in 10:22 PM Capillary source blood by data Glucomete r Glucose [Mass/volume] in Capillary blood by Glucometer Observa Value Referen Units Interpr Notes Date ti ce etation Range Glucose 70 - 110 mg/dl High No Jan 27 [Mass/vol informati 2016 4:55 ume] in on in PM Capillary source blood by data Glucomete r Glucose [Mass/volume] in Capillary blood by Glucometer Observa Value Referen Units Interpr Notes Date ti ce etation Range Glucose 70 - 110 mg/dl High No Jan 27 [Mass/vol informati 2016 ume] in on in 11:45 AM Capillary source blood by data Glucomete r CBC W Auto Differential panel in Blood Observa Value Referen Units Interpr Notes Date tion ce etation Range Basophils 0 - 0.2 K/MM3 Normal No Jan 27 informati 2016 6:36 [#/volume on in AM ] in source Blood by data Automated count Basophils 0.1 - 2.0 % Normal No Jan 27 / informati 2017 6:36 leukocyte on in AM s in source Blood by data Automated count Eosinophi 0.0 - 0.4 K/mm3 Normal No Jan 27 ls informati 2017 6:36 [#/volume on in AM ] in source Blood by data Automated count Eosinophi 0.1 - % Normal No Jan 27 ls/100 12.0 informati 2016 6:36 leukocyte on in AM s in source Blood by data Automated count Granulocy 1.3 - 8.0 K/mm3 High No Jan 27 keyshawn informati 2016 6:36 [#/volume on in AM ] in source Blood by data Automated count Granulocy 37.0 - % High No Jan 27 keyshawn/100 80.0 informati 2017 6:36 leukocyte on in AM s in source Blood by data Automated count Hematocri 42.0 - % Normal No Jan 27 t [Volume 52.0 informati 2017 6:36 on in AM Fraction] source of Blood data Hemoglobi 14.1 - g/dL Low No Jan 27 n 18.0 informati 2016 6:36 [Mass/vol on in AM ume] in source Blood data Lymphocyt 0.7 - 4.5 K/mm3 Normal No Jan 27 es informati 2017 6:36 [#/volume on in AM ] in source Unspecifi data ed specimen by Automated count Lymphocyt 10 - 50 % Low No Jan 27 es informati 2016 6:36 [#/volume on in AM ] in source Unspecifi data ed specimen by Automated count Erythrocy 27 - 31.2 pg Normal No Jan 27 te mean informati 2017 6:36 corpuscul on in AM ar source hemoglobi data n [Entitic mass] Erythrocy 31.8 - g/dl Low No Jan 27 te mean 35.4 informati 2017 6:36 corpuscul on in AM ar source hemoglobi data n concentra tion [Mass/vol ume] by Automated count Erythrocy 82.2 - fl Normal No Jan 27 te mean 97.8 informati 2017 6:36 corpuscul on in AM ar volume source [Entitic data volume] by Automated count Monocytes 0.1 - 1.0 K/mm3 Normal No Jan 27 informati 2017 6:36 [#/volume on in AM ] in source Blood by data Automated count Monocytes 1.7 - 9.3 % Normal No Jan 27 /100 informati 2016 6:36 leukocyte on in AM s in source Blood by data Automated count Platelet 7.4 - fl High No Jan 27 mean 10.4 informati 2017 6:36 volume on in AM [Entitic source volume] data in Blood by Automated count Platelets 142 - 424 K/mm3 Low No Jan 27 informati 2017 6:36 [#/volume on in AM ] in source Blood data Erythrocy 4.6 - 6.2 M/mm3 Normal No Jan 27 keyshawn informati 2016 6:36 [#/volume on in AM ] in source Amniotic data fluid Erythrocy 11.5 - % Normal No Jan 27 te 17.5 informati 2017 6:36 distribut on in AM ion width source [Entitic data volume] by Automated count Leukocyte 4.8 - K/MM3 High No Jan 27 s 10.8 informati 2016 6:36 [#/volume on in AM ] in source Blood data Basic metabolic panel in Blood Observa Value Referen Units Interpr Notes Date tion ce etation Range Urea 7 - 18 mg/dL Normal No Jan 27 nitrogen informati 2016 6:36 [Mass/vol on in AM ume] in source Serum or data Plasma Calcium 8.5 - mg/dL Low No Jan 27 [Mass/vol 10.1 informati 2017 6:36 ume] in on in AM Serum or source Plasma data Chloride 98 - 107 mmoL/L Normal No Jan 27 [Moles/vo informati 2017 6:36 lume] in on in AM Serum or source Plasma data Carbon 21.0 - mmoL/L Normal No Jan 27 dioxide, 32.0 informati 2017 6:36 total on in AM [Moles/vo source lume] in data Serum or Plasma Creatinin 0.70 - mg/dL Normal No Jan 27 e 1.30 informati 2016 6:36 [Mass/vol on in AM ume] in source Serum or data Plasma Creatinin 50 - 200 ML/MIN Normal No Jan 27 e renal informati 2017 6:36 clearance on in AM source predicted data by Cockcroft -Gault formula Estimated >60 ML/MIN No REFERENCE Jan 27 informati RANGE: 2017 6:36 glomerula on in >60 AM r source ML/MIN/1. filtratio data 73 SQUARE n rate METERSIf (GF this patient is -A merican, then multiply theresult by 1.210. Glucose 74 - 106 mg/dL High No Jan 27 [Mass/vol informati 2016 6:36 ume] in on in AM Serum or source Plasma data Potassium 3.5 - 5.1 mmoL/L Normal No Jan 27 informati 2016 6:36 [Moles/vo on in AM lume] in source Serum or data Plasma Sodium 136 - 145 mmoL/L Normal No Jan 27 [Moles/vo informati 2016 6:36 lume] in on in AM Serum or source Plasma data Glucose [Mass/volume] in Capillary blood by Glucometer Observa Value Referen Units Interpr Notes Date tion ce etation Range Glucose 70 - 110 mg/dl High No Jan 27 [Mass/vol informati 2016 6:27 ume] in on in AM Capillary source blood by data Glucomete r Glucose [Mass/volume] in Capillary blood by Glucometer Observa Value Referen Units Interpr Notes Date tion ce etation Range Glucose 70 - 110 mg/dl High No Jan 27 [Mass/vol informati 2016 4:33 ume] in on in AM Capillary source blood by data Glucomete r Urinalysis dipstick W Reflex Microscopic panel in Urine Observa Value Referen Units Interpr Notes Date ti ce etation Range Appeara CLEAR CLEAR No No No Jan 26 nce of informa informa informa 2016 Urine tion in tion in tion in 8:20 PM source source source data data data Bacteri 3+ O No No No Jan 26 a informa informa informa 2016 [Presen tion in tion in tion in 8:20 PM ce] in source source source Urine data data data sedimen t by Light microsc opy Bilirub NEGATIV NEG No No No Jan 26 in E informa informa informa 2016 [Presen tion in tion in tion in 8:20 PM ce] in source source source Urine data data data by Test strip Erythro NEGATIV NEG No No No Jan 26 cytes E informa informa informa 2016 [Presen tion in tion in tion in 8:20 PM ce] in source source source Urine data data data Color YELLOW YELLOW No No No Jan 26 of informa informa informa 2017 Urine tion in tion in tion in 8:20 PM source source source data data data Glucose NEG No High No Jan 26 [Mass/vol informati informati 2016 8:20 ume] in on in on in PM Urine by source source Test data data strip Ketones TRACE NEG mg/dL Abnorma No Jan 26 l informa 2016 [Presen tion in 8:20 PM ce] in source Urine data by Automat ed test strip Mucus NEGATIV NEG No No No Jan 26 [Presen E informa informa informa 2016 ce] in tion in tion in tion in 8:20 PM Urine source source source sedimen data data data t by Light microsc opy Nitrite NEGATIV NEG No No No Jan 26 E informa informa informa 2016 [Presen tion in tion in tion in 8:20 PM ce] in source source source Urine data data data by Test strip pH of 5.0 - 8.5 No Normal No Jan 26 Urine informati informati 2017 8:20 on in on in PM source source data data Protein NEG mg/dL High No Jan 26 [Mass/vol informati 2017 8:20 ume] in on in PM Urine by source Automated data test strip Erythro NONE 0 rbc/hpf No No Jan 26 cytes informa informa 2016 [Presen tion in tion in 8:20 PM ce] in source source Urine data data sedimen t by Light microsc opy Specific 1.005 - No Normal No Jan 26 gravity 1.030 informati informati 2017 8:20 of Urine on in on in PM source source data data Epithel 3-5 OCC #/hpf No No Jan 26 ial informa informa 2017 cells.s tion in tion in 8:20 PM quamous source source data data [Presen ce] in Urine sedimen t by Microsc opy high power field Urobili 1.0 NEG E.U./dL No No Jan 26 nogen informa informa 2016 [Presen tion in tion in 8:20 PM ce] in source source Urine data data by Test strip Leukocyte O wbc/hpf No No Jan 26 s informati informati 2017 8:20 [#/volume on in on in PM ] in source source Urine data data Urinalysis dipstick W Reflex Microscopic panel in Urine Observa Value Referen Units Interpr Notes Date tion ce etation Range Appeara CLEAR CLEAR No No No Jan 26 nce of informa informa informa 2017 Urine tion in tion in tion in 8:20 PM source source source data data data Bilirub NEGATIV NEG No No No Jan 26 in E informa informa informa 2016 [Presen tion in tion in tion in 8:20 PM ce] in source source source Urine data data data by Test strip Erythro NEGATIV NEG No No No Jan 26 cytes E informa informa informa 2016 [Presen tion in tion in tion in 8:20 PM ce] in source source source Urine data data data Color YELLOW YELLOW No No No Jan 26 of informa informa informa 2017 Urine tion in tion in tion in 8:20 PM source source source data data data Glucose NEG No High No Jan 26 [Mass/vol informati informati 2016 8:20 ume] in on in on in PM Urine by source source Test data data strip Ketones TRACE NEG mg/dL Abnorma No Jan 26 l informa 2016 [Presen tion in 8:20 PM ce] in source Urine data by Automat ed test strip Mucus NEGATIV NEG No No No Jan 26 [Presen E informa informa informa 2016 ce] in tion in tion in tion in 8:20 PM Urine source source source sedimen data data data t by Light microsc opy Nitrite NEGATIV NEG No No No Jan 26 E informa informa informa 2016 [Presen tion in tion in tion in 8:20 PM ce] in source source source Urine data data data by Test strip pH of 5.0 - 8.5 No Normal No Jan 26 Urine informati informati 2017 8:20 on in on in PM source source data data Protein NEG mg/dL High No Jan 26 [Mass/vol informati 2016 8:20 ume] in on in PM Urine by source Automated data test strip Specific 1.005 - No Normal No Jan 26 gravity 1.030 informati informati 2017 8:20 of Urine on in on in PM source source data data Urobili 1.0 NEG E.U./dL No No Jan 26 nogen informa informa 2016 [Presen tion in tion in 8:20 PM ce] in source source Urine data data by Test strip CBC W Auto Differential panel in Blood Observa Value Referen Units Interpr Notes Date tion ce etation Range Basophils 0 - 0.2 K/MM3 Normal No Jan 26 informati 2017 7:45 [#/volume on in PM ] in source Blood by data Automated count Basophils 0.1 - 2.0 % Normal No Jan 26 / informati 2016 7:45 leukocyte on in PM s in source Blood by data Automated count Eosinophi 0.0 - 0.4 K/mm3 Normal No Jan 26 ls informati 2016 7:45 [#/volume on in PM ] in source Blood by data Automated count Eosinophi 0.1 - % Normal No Jan 26 ls/100 12.0 informati 2016 7:45 leukocyte on in PM s in source Blood by data Automated count Granulocy 1.3 - 8.0 K/mm3 High No Jan 26 keyshawn informati 2016 7:45 [#/volume on in PM ] in source Blood by data Automated count Granulocy 37.0 - % High No Jan 26 keyshawn/100 80.0 informati 2016 7:45 leukocyte on in PM s in source Blood by data Automated count Hematocri 42.0 - % Normal No Jan 26 t [Volume 52.0 informati 2016 7:45 on in PM Fraction] source of Blood data Hemoglobi 14.1 - g/dL No No Jan 26 n 18.0 informati informati 2016 7:45 [Mass/vol on in on in PM ume] in source source Blood data data Lymphocyt 0.7 - 4.5 K/mm3 Normal No Jan 26 es informati 2016 7:45 [#/volume on in PM ] in source Unspecifi data ed specimen by Automated count Lymphocyt 10 - 50 % Low No Jan 26 es informati 2016 7:45 [#/volume on in PM ] in source Unspecifi data ed specimen by Automated count Erythrocy 27 - 31.2 pg Normal No Jan 26 te mean informati 2016 7:45 corpuscul on in PM ar source hemoglobi data n [Entitic mass] Erythrocy 31.8 - g/dl Normal No Jan 26 te mean 35.4 informati 2016 7:45 corpuscul on in PM ar source hemoglobi data n concentra tion [Mass/vol ume] by Automated count Erythrocy 82.2 - fl Normal No Jan 26 te mean 97.8 informati 2016 7:45 corpuscul on in PM ar volume source [Entitic data volume] by Automated count Monocytes 0.1 - 1.0 K/mm3 Normal No Jan 26 informati 2016 7:45 [#/volume on in PM ] in source Blood by data Automated count Monocytes 1.7 - 9.3 % Normal No Jan 26 informati 2016 7:45 leukocyte on in PM s in source Blood by data Automated count Platelet 7.4 - fl High Jan 26 mean 10.4 informati 2016 7:45 volume on in PM [Entitic source volume] data in Blood by Automated count Platelets 142 - 424 K/mm3 No No Jan 26 informati informati 2016 7:45 [#/volume on in on in PM ] in source source Blood data data Erythrocy 4.6 - 6.2 M/mm3 Normal No Jan 26 keyshawn informati 2016 7:45 [#/volume on in PM ] in source Amniotic data fluid Erythrocy 11.5 - % Normal Jan 26 te 17.5 informati 2016 7:45 distribut on in PM ion width source [Entitic data volume] by Automated count Leukocyte 4.8 - K/MM3 High No Jan 26 s 10.8 informati 2016 7:45 [#/volume on in PM ] in source Blood data Differential panel, method unspecified - Observa Value Referen Units Interpr Notes Date tion ce etation Range Anisocy 1+ No No No No Jan 26 tosis informa informa informa informa 2016 [Presen tion in tion in tion in tion in 7:45 PM ce] in source source source source Blood data data data data LYMPH 5 10 - 50 % Low No Jan 262016 tion in 7:45 PM source data Monocytes 2 - 9 % Normal No Jan 26ati 2016 7:45 leukocyte on in PM s in source Blood by data Automated count Platele NORMAL No No No No Jan 26 ts informa informa informa informa 2016 [Presen tion in tion in tion in tion in 7:45 PM ce] in source source source source Blood data data data data by Light microsc opy Neutrophi 42 - 76 % High Jan 26 ls ati 2016 7:45 [#/volume on in PM ] in source Blood by data Automated count Cells No #CELLS No Jan 26 Counted informati informati informati 2016 7:45 Total [#] on in on in on in PM in Blood source source source data data data Lactate [Moles/volume] in Blood Observa Value Referen Units Interpr Notes Date tion ce etation Range Lactate 0.4 - 2.0 mmol/L Normal No Jan 26 [Moles/vo informati 2017 7:45 lume] in on in PM Blood source data Basic metabolic panel in Blood Observa Value Referen Units Interpr Notes Date tion ce etation Range Urea 7 - 18 mg/dL No No Nov 10 nitrogen informati informati 2017 6:30 [Mass/vol on in on in AM ume] in source source Serum or data data Plasma Calcium 8.5 - mg/dL Low No Nov 14 [Mass/vol 10.1 informati 2017 6:30 ume] in on in AM Serum or source Plasma data Chloride 98 - 107 mmoL/L High No Nov 14 [Moles/vo informati 2017 6:30 lume] in on in AM Serum or source Plasma data Carbon 21.0 - mmoL/L High No Nov 14 dioxide, 32.0 informati 2017 6:30 total on in AM [Moles/vo source lume] in data Serum or Plasma Creatinin 0.70 - mg/dL No No Nov 14 e 1.30 informati informati 2017 6:30 [Mass/vol on in on in AM ume] in source source Serum or data data Plasma Creatinin 50 - 200 ML/MIN No No Nov 14 e renal informati informati 2017 6:30 clearance on in on in AM source source predicted data data by Cockcroft -Gault formula Estimated >60 ML/MIN No REFERENCE Nov 14 informati RANGE: 2017 6:30 glomerula on in >60 AM r source ML/MIN/1. filtratio data 73 SQUARE n rate METERSIf (GF this patient is -A merican, then multiply theresult by 1.210. Glucose 74 - 106 mg/dL High No Nov 14 [Mass/vol informati 2017 6:30 ume] in on in AM Serum or source Plasma data Potassium 3.5 - 5.1 mmoL/L Normal No Nov 14 informati 2017 6:30 [Moles/vo on in AM lume] in source Serum or data Plasma Sodium 136 - 145 mmoL/L High Nov 14 [Moles/vo alert 2017 6:30 lume] in CRITICAL AM Serum or RESULTS Plasma RESU LTS CALLED TO: SEDRICK 11/14/16 0734 June Suggsuzeliazar e CBC W Auto Differential panel in Blood Observa Value Referen Units Interpr Notes Date tion ce etation Range Basophils 0 - 0.2 K/MM3 Normal No Nov 10 informati 2017 6:06 [#/volume on in AM ] in source Blood by data Automated count Basophils 0.1 - 2.0 % Normal No Gildardo 10 /100 informati 2017 6:06 leukocyte on in AM s in source Blood by data Automated count Eosinophi 0.0 - 0.4 K/mm3 Normal No Nov 10 ls informati 2017 6:06 [#/volume on in AM ] in source Blood by data Automated count Eosinophi 0.1 - % Normal No Nov 10 ls/100 12.0 informati 2017 6:06 leukocyte on in AM s in source Blood by data Automated count Granulocy 1.3 - 8.0 K/mm3 Normal No Nov 10 keyshawn informati 2017 6:06 [#/volume on in AM ] in source Blood by data Automated count Granulocy 37.0 - % Normal No Nov 14 keyshawn/100 80.0 informati 2017 6:06 leukocyte on in AM s in source Blood by data Automated count Hematocri 42.0 - % Low No Nov 10 t [Volume 52.0 informati 2017 6:06 on in AM Fraction] source of Blood data Hemoglobi 14.1 - g/dL Low No Nov 10 n 18.0 informati 2017 6:06 [Mass/vol on in AM ume] in source Blood data Lymphocyt 0.7 - 4.5 K/mm3 Normal No Nov 14 es informati 2016 6:06 [#/volume on in AM ] in source Unspecifi data ed specimen by Automated count Lymphocyt 10 - 50 % Normal No Nov 14 es informati 2016 6:06 [#/volume on in AM ] in source Unspecifi data ed specimen by Automated count Erythrocy 27 - 31.2 pg High No Nov 14 te mean informati 2017 6:06 corpuscul on in AM ar source hemoglobi data n [Entitic mass] Erythrocy 31.8 - g/dl Normal No Nov 14 te mean 35.4 informati 2017 6:06 corpuscul on in AM ar source hemoglobi data n concentra tion [Mass/vol ume] by Automated count Erythrocy 82.2 - fl Normal No Nov 10 te mean 97.8 informati 2017 6:06 corpuscul on in AM ar volume source [Entitic data volume] by Automated count Monocytes 0.1 - 1.0 K/mm3 Normal No Nov 10 informati 2017 6:06 [#/volume on in AM ] in source Blood by data Automated count Monocytes 1.7 - 9.3 % Normal No Gildardo 10 /100 informati 2017 6:06 leukocyte on in AM s in source Blood by data Automated count Platelet 7.4 - fl Normal No Nov 10 mean 10.4 informati 2017 6:06 volume on in AM [Entitic source volume] data in Blood by Automated count Platelets 142 - 424 K/mm3 Low No Nov 10 informati 2017 6:06 [#/volume on in AM ] in source Blood data Erythrocy 4.6 - 6.2 M/mm3 Low No Nov 10 keyshawn informati 2017 6:06 [#/volume on in AM ] in source Amniotic data fluid Erythrocy 11.5 - % High No Nov 10 te 17.5 informati 2017 6:06 distribut on in AM ion width source [Entitic data volume] by Automated count Leukocyte 4.8 - K/MM3 Normal No Nov 10 s 10.8 informati 2017 6:06 [#/volume on in AM ] in source Blood data Glucose [Mass/volume] in Capillary blood by Glucometer Observa Value Referen Units Interpr Notes Date ti etation Range Glucose 70 - 110 mg/dl High No Nov 10 [Mass/vol informati 2017 5:58 ume] in on in AM Capillary source blood by data Glucomete r Glucose [Mass/volume] in Capillary blood by Glucometer Observa Value Referen Units Interpr Notes Date ti etation Range Glucose 70 - 110 mg/dl High No Nov 9 [Mass/vol informati 2017 8:42 ume] in on in PM Capillary source blood by data Glucomete r Glucose [Mass/volume] in Capillary blood by Glucometer Observa Value Referen Units Interpr Notes Date ti etation Range Glucose 70 - 110 mg/dl High No Nov 9 [Mass/vol informati 2017 5:03 ume] in on in PM Capillary source blood by data Glucomete r Sodium [Moles/volume] in Serum or Plasma Observa Value Referen Units Interpr Notes Date tion ce etation Range Sodium 136 - 145 mmoL/L High Nov 13 [Moles/vo alert 2017 2:10 lume] in CRITICAL PM Serum or RESULTS Plasma RESU LTS CALLED TO: BROOKJ 11/13/16 1443 [place] [facility] Hemoglobin & Hematocrit panel in Blood Observa Value Referen Units Interpr Notes etation Range Hematocri 42.0 - % Low No Nov 13 t [Volume 52.0 informati 2016 2:10 on in PM Fraction] source of Blood data Hemoglobi 14.1 - g/dL Low No Nov 13 n 18.0 informati 2016 2:10 [Mass/vol on in PM ume] in source Blood data Glucose [Mass/volume] in Capillary blood by Glucometer Observa Value Referen Units Interpr Notes etation Range Glucose 70 - 110 mg/dl High No Nov 13 [Mass/vol informati 2016 ume] in on in 12:12 PM Capillary source blood by data Glucomete r Glucose [Mass/volume] in Capillary blood by Glucometer Observa Value Referen Units Interpr Notes etation Range Glucose 70 - 110 mg/dl High No Nov 13 [Mass/vol informati 2016 6:36 ume] in on in AM Capillary source blood by data Glucomete r CBC W Auto Differential panel in Blood Observa Value Referen Units Interpr Notes etation Range Basophils 0 - 0.2 K/MM3 Normal No Nov 13 informati 2016 5:30 [#/volume on in AM ] in source Blood by data Automated count Basophils 0.1 - 2.0 % Normal No Nov 13 informati 2016 5:30 leukocyte on in AM s in source Blood by data Automated count Eosinophi 0.0 - 0.4 K/mm3 Normal No Nov 13 ls informati 2016 5:30 [#/volume on in AM ] in source Blood by data Automated count Eosinophi 0.1 - % Normal No Nov 13 ls/100 12.0 informati 2016 5:30 leukocyte on in AM s in source Blood by data Automated count Granulocy 1.3 - 8.0 K/mm3 Normal No Nov 13 keyshawn informati 2016 5:30 [#/volume on in AM ] in source Blood by data Automated count Granulocy 37.0 - % Normal No Nov 9 keyshawn/100 80.0 informati 2017 5:30 leukocyte on in AM s in source Blood by data Automated count Hematocri 42.0 - % Low No Nov 9 t [Volume 52.0 informati 2017 5:30 on in AM Fraction] source of Blood data Hemoglobi 14.1 - g/dL Low No Nov 9 n 18.0 informati 2017 5:30 [Mass/vol on in AM ume] in source Blood data Lymphocyt 0.7 - 4.5 K/mm3 Low No Nov 9 es informati 2017 5:30 [#/volume on in AM ] in source Unspecifi data ed specimen by Automated count Lymphocyt 10 - 50 % Low No Nov 9 es informati 2017 5:30 [#/volume on in AM ] in source Unspecifi data ed specimen by Automated count Erythrocy 27 - 31.2 pg High No Nov 9 te mean informati 2017 5:30 corpuscul on in AM ar source hemoglobi data n [Entitic mass] Erythrocy 31.8 - g/dl Normal No Nov 9 te mean 35.4 informati 2017 5:30 corpuscul on in AM ar source hemoglobi data n concentra tion [Mass/vol ume] by Automated count Erythrocy 82.2 - fl High No Nov 9 te mean 97.8 informati 2017 5:30 corpuscul on in AM ar volume source [Entitic data volume] by Automated count Monocytes 0.1 - 1.0 K/mm3 Normal No Nov 9 informati 2017 5:30 [#/volume on in AM ] in source Blood by data Automated count Monocytes 1.7 - 9.3 % Normal No Gildardo 9 /100 informati 2017 5:30 leukocyte on in AM s in source Blood by data Automated count Platelet 7.4 - fl Normal No Gildardo 9 mean 10.4 informati 2017 5:30 volume on in AM [Entitic source volume] data in Blood by Automated count Platelets 142 - 424 K/mm3 Low No Gildardo 9 informati 2017 5:30 [#/volume on in AM ] in source Blood data Erythrocy 4.6 - 6.2 M/mm3 Low No Nov 9 keyshawn informati 2017 5:30 [#/volume on in AM ] in source Amniotic data fluid Erythrocy 11.5 - % High No Nov 9 te 17.5 informati 2017 5:30 distribut on in AM ion width source [Entitic data volume] by Automated count Leukocyte 4.8 - K/MM3 No No Nov 9 s 10.8 informati informati 2017 5:30 [#/volume on in on in AM ] in source source Blood data data Basic metabolic panel in Blood Observa Value Referen Units Interpr Notes Date tion ce etation Range Urea 7 - 18 mg/dL High No Nov 9 nitrogen informati 2016 5:30 [Mass/vol on in AM ume] in source Serum or data Plasma Calcium 8.5 - mg/dL Low No Nov 9 [Mass/vol 10.1 informati 2016 5:30 ume] in on in AM Serum or source Plasma data Chloride 98 - 107 mmoL/L High No Nov 13 [Moles/vo informati 2017 5:30 lume] in on in AM Serum or source Plasma data Carbon 21.0 - mmoL/L High No Nov 13 dioxide, 32.0 informati 2016 5:30 total on in AM [Moles/vo source lume] in data Serum or Plasma Creatinin 0.70 - mg/dL Normal No Nov 9 e 1.30 informati 2016 5:30 [Mass/vol on in AM ume] in source Serum or data Plasma Creatinin 50 - 200 ML/MIN Normal No Gildardo 9 e renal informati 2016 5:30 clearance on in AM source predicted data by Cockcroft -Gault formula Estimated >60 ML/MIN No REFERENCE Gildardo 9 informati RANGE: 2017 5:30 glomerula on in >60 AM r source ML/MIN/1. filtratio data 73 SQUARE n rate METERSIf (GF this patient is -A merican, then multiply theresult by 1.210. Glucose 74 - 106 mg/dL High No Nov 9 [Mass/vol informati 2016 5:30 ume] in on in AM Serum or source Plasma data Potassium 3.5 - 5.1 mmoL/L Low No Nov 9 informati 2017 5:30 [Moles/vo on in AM lume] in source Serum or data Plasma Sodium 136 - 145 mmoL/L High Nov 13 [Moles/vo alert 2017 5:30 lume] in CRITICAL AM Serum or RESULTS Plasma RESU LTS CALLED TO: [facility] 11/13/16 0550 Vamsi Cordero Blood product special preparation [Type] Observa Value Referen Units Interpr Notes Date tion ce etation Range Blood BLOOD No No No BLOOD Nov 9 product UNIT informa informa informa UNIT # 2017 RELEASE tion in tion in in : W0382 1:20 AM special source source source 17 data data data [id number] prepara O tion POSRELE [Type] ASED 7 Yoan Cordero Glucose [Mass/volume] in Capillary blood by Glucometer Observa Value Referen Units Interpr Notes Date tion ce etation Range Glucose 70 - 110 mg/dl High No Nov 12 [Mass/vol informati 2017 8:53 ume] in on in PM Capillary source blood by data Glucomete r Blood type & Crossmatch panel in Blood Observa Value Referen Units Interpr Notes Date tion ce etation Range Hold? N Transfuse now? 2 UNITS NOW Blood NEGATIV NEGATIV No No No Nov 12 group E E informa informa informa 2017 antibod tion in tion in ti in 8:28 PM y source source source screen data data data [Presen ce] in Serum or Plasma Rh POSITIV No No No No Nov 12 [Type] E informa informa informa informa 2017 in tion in tion in tion in ti in 8:28 PM Blood source source source source data data data data ABO O No No No No Nov 12 group informa informa informa informa 2017 [Type] tion in tion in tion in ti in 8:28 PM in source source source source Blood data data data data Blood type & Crossmatch panel in Blood Observa Value Referen Units Interpr Notes Date tion ce etation Range Hold? N Transfuse now? 2 UNITS NOW Major COMPAT No No No No Nov 12 crossma informa informa informa informa 2017 tch tion in tion in tion in tion in 8:28 PM [interp source source source source retatio data data data data n] Major COMPAT No No No No Nov 12 crossma informa informa informa informa 2017 tch tion in tion in tion in tion in 8:28 PM [interp source source source source retatio data data data data n] by Immedia te spin Blood type & Crossmatch panel in Blood Observa Value Referen Units Interpr Notes Date tion ce etation Range Hold? N Transfuse now? 2 UNITS NOW Major COMPAT No No No No Nov 12 crossma informa informa informa informa 2017 tch tion in tion in tion in tion in 8:28 PM [interp source source source source retatio data data data data n] Major COMPAT No No No No Nov 12 crossma informa informa informa informa 2017 tch tion in tion in tion in tion in 8:28 PM [interp source source source source retatio data data data data n] by Immedia te spin Glucose [Mass/volume] in Capillary blood by Glucometer Observa Value Referen Units Interpr Notes Date ti ce etation Range Glucose 70 - 110 mg/dl High No Nov 12 [Mass/vol informati 2016 5:14 ume] in on in PM Capillary source blood by data Glucomete r Blood product special preparation [Type] Observa Value Referen Units Interpr Notes Date ti ce etation Range Blood BLOOD No No No BLOOD Nov 12 product UNIT informa informa informa UNIT # 2017 RELEASE tion in tion in tion in : W0382 4:58 PM special source source source 17 data data data [id number] prepara RELEASE tion D [Type] 7Boyers ,Lucind aO POSITIV E Hemoglobin & Hematocrit panel in Blood Observa Value Referen Units Interpr Notes Date ti ce etation Range Hematocri 42.0 - % Low No Nov 12 t [Volume 52.0 informati 2017 4:01 on in PM Fraction] source of Blood data Hemoglobi 14.1 - g/dL Low Nov 12 n 18.0 2016 4:01 [Mass/vol CRITICAL PM ume] in RESULTS Blood RESU LTS CALLED TO: AMANDO.[facility] 11/12/16 1620 Nataly Garcia Glucose [Mass/volume] in Capillary blood by Glucometer Observa Value Referen Units Interpr Notes Date tion ce etation Range Glucose 70 - 110 mg/dl High No Nov 8 [Mass/vol informati 2017 ume] in on in 11:17 AM Capillary source blood by data Glucomete r CBC W Auto Differential panel in Blood Observa Value Referen Units Interpr Notes Date tion ce etation Range Granulocy 1.3 - 8.0 K/mm3 Normal No Nov 8 keyshawn informati 2017 7:56 [#/volume on in AM ] in source Blood by data Automated count Granulocy 37.0 - % Normal No Nov 8 keyshawn/100 80.0 informati 2017 7:56 leukocyte on in AM s in source Blood by data Automated count Hematocri 42.0 - % Low No Nov 8 t [Volume 52.0 informati 2017 7:56 on in AM Fraction] source of Blood data Hemoglobi 14.1 - g/dL Low No Nov 8 n 18.0 informati 2017 7:56 [Mass/vol on in AM ume] in source Blood data Lymphocyt 0.7 - 4.5 K/mm3 Normal No Nov 8 es informati 2017 7:56 [#/volume on in AM ] in source Unspecifi data ed specimen by Automated count Lymphocyt 10 - 50 % Normal No Nov 8 es informati 2017 7:56 [#/volume on in AM ] in source Unspecifi data ed specimen by Automated count Erythrocy 27 - 31.2 pg High No Nov 8 te mean informati 2017 7:56 corpuscul on in AM ar source hemoglobi data n [Entitic mass] Erythrocy 31.8 - g/dl Normal No Nov 8 te mean 35.4 informati 2016 7:56 corpuscul on in AM ar source hemoglobi data n concentra tion [Mass/vol ume] by Automated count Erythrocy 82.2 - fL High No Nov 8 te mean 97.8 informati 2017 7:56 corpuscul on in AM ar volume source [Entitic data volume] by Automated count Monocytes 0.1 - 1.0 K/mm3 Normal No Nov 8 informati 2017 7:56 [#/volume on in AM ] in source Blood by data Automated count Monocytes 1.7 - 9.3 % Normal No Nov 8 /100 informati 2017 7:56 leukocyte on in AM s in source Blood by data Automated count Platelets 142 - 424 K/mm3 Low No Nov 8 informati 2017 7:56 [#/volume on in AM ] in source Blood data Erythrocy 4.6 - 6.2 M/mm3 Low No Nov 8 keyshawn informati 2017 7:56 [#/volume on in AM ] in source Amniotic data fluid Erythrocy 11.5 - % Normal No Nov 8 te 17.5 informati 2017 7:56 distribut on in AM ion width source [Entitic data volume] by Automated count Leukocyte 4.8 - K/mm3 Normal No Nov 8 s 10.8 informati 2016 7:56 [#/volume on in AM ] in source Blood data Glucose [Mass/volume] in Capillary blood by Glucometer Observa Value Referen Units Interpr Notes Date tion ce etation Range Glucose 70 - 110 mg/dl High No Nov 8 [Mass/vol informati 2016 6:24 ume] in on in AM Capillary source blood by data Glucomete r Glucose [Mass/volume] in Capillary blood by Glucometer Observa Value Referen Units Interpr Notes Date ti ce etation Range Glucose 70 - 110 mg/dl High No Nov 7 [Mass/vol informati 2016 9:03 ume] in on in PM Capillary source blood by data Glucomete r Glucose [Mass/volume] in Capillary blood by Glucometer Observa Value Referen Units Interpr Notes Date tion ce etation Range Glucose 70 - 110 mg/dl High No Nov 11 [Mass/vol informati 2016 4:05 ume] in on in PM Capillary source blood by data Glucomete r Glucose [Mass/volume] in Capillary blood by Glucometer Observa Value Referen Units Interpr Notes Date tion ce etation Range Glucose 70 - 110 mg/dl High No Nov 7 [Mass/vol informati 2016 ume] in on in 11:55 AM Capillary source blood by data Glucomete r Glucose [Mass/volume] in Capillary blood by Glucometer Observa Value Referen Units Interpr Notes Date tion ce etation Range Glucose 70 - 110 mg/dl High No Nov 7 [Mass/vol informati 2016 6:45 ume] in on in AM Capillary source blood by data Glucomete r CBC W Auto Differential panel in Blood Observa Value Referen Units Interpr Notes Date tion ce etation Range Basophils 0 - 0.2 K/MM3 Normal No Nov 7 informati 2017 6:05 [#/volume on in AM ] in source Blood by data Automated count Basophils 0.1 - 2.0 % Normal No Gildardo 7 /100 informati 2017 6:05 leukocyte on in AM s in source Blood by data Automated count Eosinophi 0.0 - 0.4 K/mm3 Normal No Nov 7 ls informati 2016 6:05 [#/volume on in AM ] in source Blood by data Automated count Eosinophi 0.1 - % Normal No Nov 7 ls/100 12.0 informati 2017 6:05 leukocyte on in AM s in source Blood by data Automated count Granulocy 1.3 - 8.0 K/mm3 Normal No Nov 7 keyshawn informati 2017 6:05 [#/volume on in AM ] in source Blood by data Automated count Granulocy 37.0 - % Normal No Nov 7 keyshawn/100 80.0 informati 2017 6:05 leukocyte on in AM s in source Blood by data Automated count Hematocri 42.0 - % Low No Nov 11 t [Volume 52.0 informati 2016 6:05 on in AM Fraction] source of Blood data Hemoglobi 14.1 - g/dL Low No Nov 11 n 18.0 informati 2017 6:05 [Mass/vol on in AM ume] in source Blood data Lymphocyt 0.7 - 4.5 K/mm3 Normal No Nov 7 es informati 2017 6:05 [#/volume on in AM ] in source Unspecifi data ed specimen by Automated count Lymphocyt 10 - 50 % Normal No Nov 11 es informati 2017 6:05 [#/volume on in AM ] in source Unspecifi data ed specimen by Automated count Erythrocy 27 - 31.2 pg High No Nov 11 te mean informati 2017 6:05 corpuscul on in AM ar source hemoglobi data n [Entitic mass] Erythrocy 31.8 - g/dl Low No Nov 11 te mean 35.4 informati 2017 6:05 corpuscul on in AM ar source hemoglobi data n concentra tion [Mass/vol ume] by Automated count Erythrocy 82.2 - fl High No Nov 11 te mean 97.8 informati 2017 6:05 corpuscul on in AM ar volume source [Entitic data volume] by Automated count Monocytes 0.1 - 1.0 K/mm3 Normal No Nov 7 informati 2017 6:05 [#/volume on in AM ] in source Blood by data Automated count Monocytes 1.7 - 9.3 % Normal No Gildardo 7 /100 informati 2017 6:05 leukocyte on in AM s in source Blood by data Automated count Platelet 7.4 - fl Normal No Nov 7 mean 10.4 informati 2017 6:05 volume on in AM [Entitic source volume] data in Blood by Automated count Platelets 142 - 424 K/mm3 Normal No Gildardo 7 informati 2017 6:05 [#/volume on in AM ] in source Blood data Erythrocy 4.6 - 6.2 M/mm3 Low No Nov 7 keyshawn informati 2017 6:05 [#/volume on in AM ] in source Amniotic data fluid Erythrocy 11.5 - % Normal No Nov 7 te 17.5 informati 2017 6:05 distribut on in AM ion width source [Entitic data volume] by Automated count Leukocyte 4.8 - K/MM3 No No Nov 7 s 10.8 informati informati 2017 6:05 [#/volume on in on in AM ] in source source Blood data data Basic metabolic panel in Blood Observa Value Referen Units Interpr Notes Date tion ce etation Range Urea 7 - 18 mg/dL High No Nov 7 nitrogen informati 2017 6:05 [Mass/vol on in AM ume] in source Serum or data Plasma Calcium 8.5 - mg/dL Low No Nov 7 [Mass/vol 10.1 informati 2017 6:05 ume] in on in AM Serum or source Plasma data Chloride 98 - 107 mmoL/L High No Nov 7 [Moles/vo informati 2017 6:05 lume] in on in AM Serum or source Plasma data Carbon 21.0 - mmoL/L Normal No Nov 11 dioxide, 32.0 informati 2017 6:05 total on in AM [Moles/vo source lume] in data Serum or Plasma Creatinin 0.70 - mg/dL Normal No Gildardo 7 e 1.30 informati 2017 6:05 [Mass/vol on in AM ume] in source Serum or data Plasma Creatinin 50 - 200 ML/MIN Normal No Nov 7 e renal informati 2017 6:05 clearance on in AM source predicted data by Cockcroft -Gault formula Estimated >60 ML/MIN No REFERENCE Gildardo 7 informati RANGE: 2017 6:05 glomerula on in >60 AM r source ML/MIN/1. filtratio data 73 SQUARE n rate METERSIf (GF this patient is -A merican, then multiply theresult by 1.210. Glucose 74 - 106 mg/dL High No Nov 7 [Mass/vol informati 2017 6:05 ume] in on in AM Serum or source Plasma data Potassium 3.5 - 5.1 mmoL/L Normal No Gildardo 7 informati 2017 6:05 [Moles/vo on in AM lume] in source Serum or data Plasma Sodium 136 - 145 mmoL/L High Nov 7 [Moles/vo alert 2017 6:05 lume] in CRITICAL AM Serum or RESULTS Plasma RESU LTS CALLED TO: JA 11/11/16 0723 June Suggs Glucose [Mass/volume] in Capillary blood by Glucometer Observa Value Referen Units Interpr Notes Date tion ce etation Range Glucose 70 - 110 mg/dl High No Nov 6 [Mass/vol informati 2017 ume] in on in 10:00 PM Capillary source blood by data Glucomete r Glucose [Mass/volume] in Capillary blood by Glucometer Observa Value Referen Units Interpr Notes Date tion ce etation Range Glucose 70 - 110 mg/dl High No Nov 6 [Mass/vol informati 2017 4:41 ume] in on in PM Capillary source blood by data Glucomete r Glucose [Mass/volume] in Capillary blood by Glucometer Observa Value Referen Units Interpr Notes Date tion ce etation Range Glucose 70 - 110 mg/dl High No Gildardo 6 [Mass/vol informati 2017 ume] in on in 11:49 AM Capillary source blood by data Glucomete r Basic metabolic panel in Blood Observa Value Referen Units Interpr Notes Date tion ce etation Range Urea 7 - 18 mg/dL High No Gildardo 6 nitrogen informati 2017 6:10 [Mass/vol on in AM ume] in source Serum or data Plasma Calcium 8.5 - mg/dL Low No Gildardo 6 [Mass/vol 10.1 informati 2017 6:10 ume] in on in AM Serum or source Plasma data Chloride 98 - 107 mmoL/L High No Gildardo 6 [Moles/vo informati 2017 6:10 lume] in on in AM Serum or source Plasma data Carbon 21.0 - mmoL/L Normal No Gildardo 6 dioxide, 32.0 informati 2017 6:10 total on in AM [Moles/vo source lume] in data Serum or Plasma Creatinin 0.70 - mg/dL No No Nov 6 e 1.30 informati informati 2017 6:10 [Mass/vol on in on in AM ume] in source source Serum or data data Plasma Creatinin 50 - 200 ML/MIN No No Nov 6 e renal informati informati 2016 6:10 clearance on in on in AM source source predicted data data by Cockcroft -Gault formula Estimated >60 ML/MIN No REFERENCE Nov 6 informati RANGE: 2017 6:10 glomerula on in >60 AM r source ML/MIN/1. filtratio data 73 SQUARE n rate METERSIf (GF this patient is -A merican, then multiply theresult by 1.210. Glucose 74 - 106 mg/dL High No Nov 6 [Mass/vol informati 2016 6:10 ume] in on in AM Serum or source Plasma data Potassium 3.5 - 5.1 mmoL/L High No Nov 10 informati 2016 6:10 [Moles/vo on in AM lume] in source Serum or data Plasma Sodium 136 - 145 mmoL/L Normal No Nov 6 [Moles/vo informati 2016 6:10 lume] in on in AM Serum or source Plasma data CBC W Auto Differential panel in Blood Observa Value Referen Units Interpr Notes Date tion ce etation Range Basophils 0 - 0.2 K/MM3 Normal No Nov 10 inform2016 6:10 [#/volume on in AM ] in source Blood by data Automated count Basophils 0.1 - 2.0 % Normal No Nov 6 / informati 2017 6:10 leukocyte on in AM s in source Blood by data Automated count Eosinophi 0.0 - 0.4 K/mm3 Normal No Nov 6 ls informati 2016 6:10 [#/volume on in AM ] in source Blood by data Automated count Eosinophi 0.1 - % Normal No Nov 10 ls/100 12.0 informati 2017 6:10 leukocyte on in AM s in source Blood by data Automated count Granulocy 1.3 - 8.0 K/mm3 High No Nov 6 keyshawn informati 2017 6:10 [#/volume on in AM ] in source Blood by data Automated count Granulocy 37.0 - % Normal No Gildardo 6 keyshawn/100 80.0 informati 2017 6:10 leukocyte on in AM s in source Blood by data Automated count Hematocri 42.0 - % Low No Gildardo 6 t [Volume 52.0 informati 2017 6:10 on in AM Fraction] source of Blood data Hemoglobi 14.1 - g/dL Low No Gildardo 6 n 18.0 informati 2017 6:10 [Mass/vol on in AM ume] in source Blood data Lymphocyt 0.7 - 4.5 K/mm3 Normal No Gildardo 6 es informati 2017 6:10 [#/volume on in AM ] in source Unspecifi data ed specimen by Automated count Lymphocyt 10 - 50 % Normal No Gildardo 6 es informati 2017 6:10 [#/volume on in AM ] in source Unspecifi data ed specimen by Automated count Erythrocy 27 - 31.2 pg High No Gildardo 6 te mean informati 2017 6:10 corpuscul on in AM ar source hemoglobi data n [Entitic mass] Erythrocy 31.8 - g/dl Normal No Gildardo 6 te mean 35.4 informati 2017 6:10 corpuscul on in AM ar source hemoglobi data n concentra tion [Mass/vol ume] by Automated count Erythrocy 82.2 - fl High No Gildardo 6 te mean 97.8 informati 2017 6:10 corpuscul on in AM ar volume source [Entitic data volume] by Automated count Monocytes 0.1 - 1.0 K/mm3 High No Gildardo 6 informati 2017 6:10 [#/volume on in AM ] in source Blood by data Automated count Monocytes 1.7 - 9.3 % Normal No Gildardo 6 /100 informati 2017 6:10 leukocyte on in AM s in source Blood by data Automated count Platelet 7.4 - fl Normal No Gildardo 6 mean 10.4 informati 2017 6:10 volume on in AM [Entitic source volume] data in Blood by Automated count Platelets 142 - 424 K/mm3 Low No Gildardo 6 informati 2017 6:10 [#/volume on in AM ] in source Blood data Erythrocy 4.6 - 6.2 M/mm3 Low No Gildardo 6 keyshawn informati 2017 6:10 [#/volume on in AM ] in source Amniotic data fluid Erythrocy 11.5 - % Normal No Gildardo 6 te 17.5 informati 2017 6:10 distribut on in AM ion width source [Entitic data volume] by Automated count Leukocyte 4.8 - K/MM3 High No Nov 6 s 10.8 informati 2017 6:10 [#/volume on in AM ] in source Blood data Glucose [Mass/volume] in Capillary blood by Glucometer Observa Value Referen Units Interpr Notes Date ti ce etation Range Glucose 70 - 110 mg/dl High No Nov 6 [Mass/vol informati 2017 6:09 ume] in on in AM Capillary source blood by data Glucomete r Hemoglobin & Hematocrit panel in Blood Observa Value Referen Units Interpr Notes Date ti ce etation Range Hematocri 42.0 - % Low No Nov 10 t [Volume 52.0 informati 2017 on in 12:30 AM Fraction] source of Blood data Hemoglobi 14.1 - g/dL Low No Nov 10 n 18.0 informati 2016 [Mass/vol on in 12:30 AM ume] in source Blood data Glucose [Mass/volume] in Capillary blood by Glucometer Observa Value Referen Units Interpr Notes Date ce etation Range Glucose 70 - 110 mg/dl High No Nov 09 [Mass/vol alert informati 2017 9:15 ume] in on in PM Capillary source blood by data Glucomete r Blood type & Crossmatch panel in Blood Observa Value Referen Units Interpr Notes Date ce etation Range Hold? Y Major COMPAT No No No No Nov 09 crossma informa informa informa informa 2017 tch tion in tion in tion in tion in 7:05 PM [interp source source source source retatio data data data data n] Major COMPAT No No No No Nov 09 crossma informa informa informa informa 2017 tch tion in tion in tion in tion in 7:05 PM [interp source source source source retatio data data data data n] by Immedia te spin Blood type & Crossmatch panel in Blood Observa Value Referen Units Interpr Notes Date ti ce etation Range Hold? Y Major COMPAT No No No No Nov 09 crossma informa informa informa informa 2017 tch tion in tion in tion in tion in 7:05 PM [interp source source source source retatio data data data data n] Major COMPAT No No No No Nov 09 crossma informa informa informa informa 2017 tch tion in tion in tion in tion in 7:05 PM [interp source source source source retatio data data data data n] by Immedia te spin Blood type & Crossmatch panel in Blood Observa Value Referen Units Interpr Notes Date tion ce etation Range Hold? Y Major COMPAT No No No No Nov 09 crossma informa informa informa informa 2017 tch tion in tion in tion in tion in 7:05 PM [interp source source source source retatio data data data data n] Major COMPAT No No No No Nov 09 crossma informa informa informa informa 2017 tch tion in tion in tion in tion in 7:05 PM [interp source source source source retatio data data data data n] by Immedia te spin Blood type & Crossmatch panel in Blood Observa Value Referen Units Interpr Notes Date tion ce etation Range Hold? Y Blood NEGATIV NEGATIV No No No Nov 09 group E E informa informa informa 2017 antibod tion in tion in tion in 7:05 PM y source source source screen data data data [Presen ce] in Serum or Plasma Rh POSITIV No No No No Nov 09 [Type] E informa informa informa informa 2017 in tion in tion in tion in tion in 7:05 PM Blood source source source source data data data data ABO O No No No No Nov 09 group informa informa informa informa 2017 [Type] tion in tion in tion in tion in 7:05 PM in source source source source Blood data data data data Blood type & Crossmatch panel in Blood Observa Value Referen Units Interpr Notes Date tion ce etation Range Hold? Y Major COMPAT No No No No Nov 09 crossma informa informa informa informa 2017 tch tion in tion in tion in tion in 7:05 PM [interp source source source source retatio data data data data n] Major COMPAT No No No No Nov 09 crossma informa informa informa informa 2017 tch tion in tion in tion in tion in 7:05 PM [interp source source source source retatio data data data data n] by Immedia te spin Lactate [Moles/volume] in Serum or Plasma Observa Value Referen Units Interpr Notes Date tion ce etation Range Lactate 0.4 - 2.0 MMOL/L Normal No Gildardo 5 [Moles/vo informati 2017 7:05 lume] in on in PM Serum or source Plasma data Gas panel in Venous blood Observa Value Referen Units Interpr Notes Date tion ce etation Range Base -2.4-2.3 MMOL/L Low No Gildardo 5 excess in informati 2017 3:40 Venous on in PM blood source data Bicarbona 23 - 27 MMOL/L Low No Gildardo 5 te informati 2017 3:40 [Moles/vo on in PM lume] in source Venous data blood Carbon 41 - 51 MMHG Low No Gildardo 5 dioxide informati 2017 3:40 [Partial on in PM pressure] source in data Venous blood pH of 7.31 - MMOL/L High No Gildardo 5 Venous 7.41 informati 2017 3:40 blood on in PM source data Oxygen 35 - 40 MMHG High No Gildardo 5 content informati 2017 3:40 in Venous on in PM blood source data Oxygen 75 - 80 % High No Gildardo 5 saturatio informati 2017 3:40 n.calcula on in PM jessica from source oxygen data partial pressure in Venous blood Carbon 23 - 27 MMOL/L Low No Gildardo 5 dioxide, informati 2017 3:40 total on in PM [Moles/vo source lume] in data Venous blood Acetone [Mass/volume] in Serum or Plasma Observa Value Referen Units Interpr Notes Date tion ce etation Range Acetone NOT No No No Gildardo 5 [Mass/vol DETECTD informati informati informati 2016 2:55 ume] in on in on in on in PM Serum or source source source Plasma data data data CBC W Auto Differential panel in Blood Observa Value Referen Units Interpr Notes Date tion ce etation Range Basophils 0 - 0.2 K/MM3 Normal No Gildardo 5 informati 2016 2:55 [#/volume on in PM ] in source Blood by data Automated count Basophils 0.1 - 2.0 % Normal No Gildardo 5 /100 informati 2016 2:55 leukocyte on in PM s in source Blood by data Automated count Eosinophi 0.0 - 0.4 K/mm3 Normal No Gildardo 5 ls informati 2017 2:55 [#/volume on in PM ] in source Blood by data Automated count Eosinophi 0.1 - % Normal No Gildardo 5 ls/100 12.0 informati 2016 2:55 leukocyte on in PM s in source Blood by data Automated count Granulocy 1.3 - 8.0 K/mm3 High No Gildardo 5 keyshawn informati 2016 2:55 [#/volume on in PM ] in source Blood by data Automated count Granulocy 37.0 - % High No Gildardo 5 keyshawn/100 80.0 informati 2016 2:55 leukocyte on in PM s in source Blood by data Automated count Hematocri 42.0 - % Low No Gildardo 5 t [Volume 52.0 informati 2017 2:55 on in PM Fraction] source of Blood data Hemoglobi 14.1 - g/dL Low No Gildardo 5 n 18.0 informati 2016 2:55 [Mass/vol on in PM ume] in source Blood data Lymphocyt 0.7 - 4.5 K/mm3 Normal No Gildardo 5 es informati 2016 2:55 [#/volume on in PM ] in source Unspecifi data ed specimen by Automated count Lymphocyt 10 - 50 % Low No Gildardo 5 es informati 2016 2:55 [#/volume on in PM ] in source Unspecifi data ed specimen by Automated count Erythrocy 27 - 31.2 pg High No Gildardo 5 te mean informati 2016 2:55 corpuscul on in PM ar source hemoglobi data n [Entitic mass] Erythrocy 31.8 - g/dl Normal No Gildardo 5 te mean 35.4 informati 2016 2:55 corpuscul on in PM ar source hemoglobi data n concentra tion [Mass/vol ume] by Automated count Erythrocy 82.2 - fl High No Gildardo 5 te mean 97.8 informati 2016 2:55 corpuscul on in PM ar volume source [Entitic data volume] by Automated count Monocytes 0.1 - 1.0 K/mm3 High No Gildardo 5 informati 2016 2:55 [#/volume on in PM ] in source Blood by data Automated count Monocytes 1.7 - 9.3 % Normal No Gildardo 5 /100 informati 2016 2:55 leukocyte on in PM s in source Blood by data Automated count Platelet 7.4 - fl Normal No Gildardo 5 mean 10.4 informati 2016 2:55 volume on in PM [Entitic source volume] data in Blood by Automated count Platelets 142 - 424 K/mm3 Normal No Gildardo 5 informati 2017 2:55 [#/volume on in PM ] in source Blood data Erythrocy 4.6 - 6.2 M/mm3 Low No Gildardo 5 keyshawn informati 2017 2:55 [#/volume on in PM ] in source Amniotic data fluid Erythrocy 11.5 - % Normal No Gildardo 5 te 17.5 informati 2017 2:55 distribut on in PM ion width source [Entitic data volume] by Automated count Leukocyte 4.8 - K/MM3 High No Gildardo 5 s 10.8 informati 2017 2:55 [#/volume on in PM ] in source Blood data Differential panel, method unspecified - Observa Value Referen Units Interpr Notes Date tion ce etation Range LYMPH 9 10 - 50 % Low No Gildardo 5 inform 2017 tion in 2:55 PM source data Monocytes 2 - 9 % High No Gildardo 5 /100 informati 2017 2:55 leukocyte on in PM s in source Blood by data Automated count Platele SLIGHT No No No No Nov 09 ts DECREAS informa informa informa informa 2016 [Presen E tion in tion in tion in tion in 2:55 PM ce] in source source source source Blood data data data data by Light microsc opy Neutrophi 42 - 76 % High No Nov 5 ls ati 2016 2:55 [#/volume on in PM ] in source Blood by data Automated count Cells No #CELLS No No Gildardo 5 Counted informati informati informati 2016 2:55 Total [#] on in on in on in PM in Blood source source source data data data Lactate [Moles/volume] in Blood Observa Value Referen Units Interpr Notes Date tion ce etation Range Lactate 0.4 - 2.0 mmol/L High An Nov 09 [Moles/vo elevated 2017 2:55 lume] in Lactic PM Blood Acid is suggestiv e of sepsis and shouldbe repeated within 6 hours of initial testing. Comprehensive metabolic 2000 panel in Serum or Plasma Observa Value Referen Units Interpr Notes Date tion ce etation Range Albumin/G 1.1 - 1.8 No Low No Gildardo 5 lobulin informati informati 2016 2:55 [Mass on in on in PM ratio] in source source Serum or data data Plasma Albumin 3.4 - 5.0 gm/dL Low No Gildardo 5 [Mass/vol informati 2017 2:55 ume] in on in PM Serum or source Plasma data Alkaline 46 - 116 U/L High No Gildardo 5 phosphata informati 2017 2:55 se on in PM [Enzymati source c data activity/ volume] in Serum or Plasma Bilirubin 0.2 - 1.0 mg/dL Normal No Gildardo 5 .total informati 2017 2:55 [Mass/vol on in PM ume] in source Serum or data Plasma Urea 7 - 18 mg/dL High Nov 09 nitrogen NOTIFICAT 2017 2:55 [Mass/vol ION PM ume] in RESULT Serum or Plasma Calcium 8.5 - mg/dL Low No Nov 5 [Mass/vol 10.1 informati 2017 2:55 ume] in on in PM Serum or source Plasma data Chloride 98 - 107 mmoL/L Normal No Gildardo 5 [Moles/vo informati 2017 2:55 lume] in on in PM Serum or source Plasma data Carbon 21.0 - mmoL/L Normal No Nov 09 dioxide, 32.0 informati 2017 2:55 total on in PM [Moles/vo source lume] in data Serum or Plasma Creatinin 0.70 - mg/dL High No Gildardo 5 e 1.30 informati 2017 2:55 [Mass/vol on in PM ume] in source Serum or data Plasma Creatinin 50 - 200 ML/MIN Low No Gildardo 5 e renal informati 2017 2:55 clearance on in PM source predicted data by Cockcroft -Gault formula Estimated >60 ML/MIN No REFERENCE Gildardo 5 informati RANGE: 2017 2:55 glomerula on in >60 PM r source ML/MIN/1. filtratio data 73 SQUARE n rate METERSIf (GF this patient is -A merican, then multiply theresult by 1.210. Globulin 1.3 - 3.2 gm/dL High No Gildardo 5 [Mass/vol informati 2017 2:55 ume] in on in PM Serum source data Glucose 74 - 106 mg/dL High Gildardo 5 [Mass/vol 2016 2:55 ume] in CRITICAL PM Serum or RESULTS Plasma RESU LTS CALLED TO: SEAMUS Hernandez 11/09/16 1527 Nataly Garcia Potassium 3.5 - 5.1 mmoL/L Normal No Nov 09 informati 2016 2:55 [Moles/vo on in PM lume] in source Serum or data Plasma Sodium 136 - 145 mmoL/L Normal No Nov 09 [Moles/vo informati 2016 2:55 lume] in on in PM Serum or source Plasma data Aspartate 15 - 37 U/L Low No Nov 09 informati 2016 2:55 aminotran on in PM sferase source [Enzymati data c activity/ volume] in Serum or Plasma Alanine 12 - 78 U/L Normal No Nov 09 aminotran informati 2016 2:55 sferase on in PM [Enzymati source c data activity/ volume] in Serum or Plasma Protein 6.4 - 8.2 gm/dL Low No Nov 09 [Mass/vol informati 2016 2:55 ume] in on in PM Serum or source Plasma data Hemoglobin.gastrointestinal [Presence] in Stool Observa Value Referen Units Interpr Notes Date tion ce etation Range Hemoglo POSITIV NEG No No No Nov 09 bin.gas E informa informa informa 2017 trointe tion in tion in tion in 2:40 PM stinal source source source [Presen data data data ce] in Stool --1st specime n
--- OUTSIDE RECORDS SUMMARY | 2017-04-20 03:19 | External Medical Summary Rpt ---
[...] Serum or Plasma RESU LTS CALLED TO: SEDRICK 02/01/17 0725 June Suggs e Sodium 136 [...] Date tion ce etation Range COMMENTS TO ANIMAL HOSPITAL CLERK: PLEASE CALL PHARMACY WITH RESULTS Vancomyci 5.0 [...] RESU LTS CALLED TO: BROOKJ 11/13/16 1443 [place] Hemoglobin & Hematocrit panel in Blood [...] or RESULTS Plasma RESU LTS CALLED TO: AMANDO.[facility] 11/13/16 0550 Vamsi Cordero Blood product special preparation [Type] Observa Value Referen Units Interpr Notes Date tion ce etation Range Blood BLOOD No No No BLOOD Nov 9 product UNIT informa informa informa UNIT # 2017 RELEASE tion in tion in in : [id number] 1:20 AM special source source source 17 data data data [id number] prepara O tion POSRELE [Type] ASED 7 [...] source source source 17 data data data [id number] prepara RELEASE tion D [Type] 7[place] ,Lucind [...]
[2017-04-20 03:21] LABS: ALLEN'S TEST NON APPLICABLE; ARTERIAL ABE 3.1 MMOL/L (-2.4-+2.3); OXYGEN 100%
--- NOTE | 2017-04-20 03:41 | Emergency Room Report ---
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 AND BLOOD SUGAR. 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 Y Clinical Suspician of Infection? Y Mental Status: 1 - Regular (Normal Baseline) Sepsis Risk:Severe Sepsis Risk Have you (or family members/close friends) recently traveled outside the [place]? N If Yes, where/when: Have you had exposure to infectious disease within the past month? N TB? Other? Specify: Source patient, RN notes reviewed, old records Exam Limitations no limitations Comment pt with fever and congestion at [facility] with dec loc - ecf tried to treat pt but he needed higher o2 than then could deliver - pt unable to give hx Cardiac Chest Pain Chest pain indicative of cardiac No Timing/Duration this evening Severity moderate ALLERGIES Coded Allergies: tuberculin, purified protein deriva (tuberculin,purif.prot.deriv.) (04/24/15) Home Medications Active Scripts Diazepam (Diastat Acudial) 10 MG NC PRN PRN seizure #2 EACH Ref 2 Prov: 11/23/15 Pantoprazole Sodium (Protonix) 40 MG GT BID #60 Prov: 11/14/16 NUT.SUP,SPEC.FRM,L-FR,IRON/FOS (Twocal Hn Liquid) 35 ML PO Q1HP PRN tube feeds #1 BOT Ref 11 Prov: 02/04/17 CLINDAMYCIN PALMITATE HCL (Clindamycin Pediatric) 20 ML PO Q8 #420 ML Prov: 02/04/17 Reported Medications Baclofen 10 MG GT BID Acetaminophen (Tylenol XS 500MG) 2 TABS GT Q4-6HP PRN FEVER/PAIN Glipizide (Glipizide 5MG) 5 MG GT DAILY LACTOSE-REDUCED FOOD/FIBER (Isosource 1.5 Jey Liquid) 250 ML GT BID Levetiracetam (Keppra) 1,000 MG GT BID TETRAHYDROZOLINE HCL (Opti-Clear 15 Ml) 2 DROP OP TID AMINO ACIDS/PROTEIN HYDROLYS (Pro-Stat Profile Liquid) 237 ML GT DAILY LACTOSE-REDUCED FOOD/FIBER (Isosource 1.5 Jey Tube Feed Lq) 50 ML FT E12 LISINOPRIL (Lisinopril) 10 MG PO DAILY Metoclopramide Hydrochloride (Metoclopramide HCl) 5 MG GT QID #120 TAB LOPERAMIDE HCL (Loperamide) 2 MG GT Q4HP Senna Pod (Senokot Tablet) 8.6 MG GT DAILY History Medical History General CAD? No Angina: No MA: No Hypertension? Yes Hyperlipidemia? No CHF? No DVT? No PE? No COPD? No Asthma? No Anemia? Yes GERD? No Gastric ulcers? No GI Bleed? No Hernia? No Thyroid Problems? No Hypothyroidism? No CVA? Yes Seizures? Yes Diabetes? Yes Insulin Dependent: No Insulin Pump: No Home FSBS? No Renal Insuffiency? Yes End Stage Renal Disease? No UTI? Yes Stones? No BPH? No GB Disease: No Nephritic Syndrome? No Asplenia? No Hepatitis? No Sickle Cell Disease? No Arthritis? No Migraines? No Cataracts? No Glaucoma? No MRSA? Yes HIV? No TB? No Anxiety? No Depression? No Cancer? No More? Yes Additional hx: SUBARACHNOID HEMORRHAGE, HX A FIB DEMENITA Immunization Hx DT/Tetanus Unknown Flu [id number] Flu Season Pneumonia Unknown Surgical Hx Previous Surgery?Y G-TUBE PLACEMENT Family History Family Hx Diabetes Yes CAD Yes Hypertension Yes Hyperlipidemia Yes Cancer No TB No Social History Smoking Hx Smoker: Never Smoker Tobacco: No Packs/day N/A Alcohol Alcohol: No Drugs none Review of Systems All Other Systems Reviewed and Negative Constitutional see HPI, fever Eyes denies drainage Respiratory see HPI, shortness of breath Comment unable to obtain sec to illness Physical Exam Vital Signs Vital Signs Date Time Temp Pulse Resp B/P Pulse O2 O2 Flow FiO2 Ox Delivery Rate 04/20 0352 138 28 112/53 91 04/20 0250 105.2 144 26 125/60 86 15 - WBC >12,000 or <4,000 or 10% bands? 2 or more SIRS Criteria Met? B/P:112/53 MAP:81 Creatinine >2.0? UA output<0.5ml/kg/hr for 2 hrs? Platelet count >100,000? Lactate >2.0mmol/1? INR >1.2 or PTT > than 60 sec? Evidence of Organ Dysfunction? Provider documented clinical suspician of infection? Y Sepsis Criteria Count: 3 Sepsis Risk: Severe Sepsis Risk General Appearance moderate distress, lethargic Eye Exam Comment no icterus Ear, Nose, Throat dry mm Neck limited range of motion Respiratory Status Yes: respiratory distress. Lung Sounds bilateral: decreased breath sounds, rhonchi. Cardiovascular tachycardia, gallop/S4 Peripheral Pulses Pulses normal Yes Gastrointestinal soft, g tube Extremities contractures Neurologic obtunded w/o focal changes or posturing Reflexes Reflexes normal No Mental status altered mental status Skin intact Medical Decision Making LABS/Meds/Orders Pt receiving controlled substance in ED? No Results/Orders Laboratory Tests 04/20/17 0400: Lactic Acid 6.9 H 04/20/17 0400: Sodium 153 *H, Potassium 4.0, Chloride 111 H, Carbon Dioxide 34 H, BUN 59 H, Creatinine 3.4 H, Estimated Creat Clear 20 L, Estimated GFR (MDRD) 18, Glucose 726 *H, Calcium 9.6, Total Bilirubin 0.7, AST 14 L, ALT 25, Alkaline Phosphatase 136 H, Creatine Kinase 102, CK-MB (CK-2) Rel Index 0.5, CK and CKMB Interp < 0.5, Troponin I 1.46 H, Total Protein 8.6 H, Albumin 3.0 L, Globulin 5.6 H, Albumin/Globulin Ratio 0.5 L, WBC 11.2 H, RBC 5.26, Hgb 15.3, Hct 53.1 H, MCV 101.0 H, RDW 16.8, Plt Count 192, MPV 11.8 H, Gran % 87.8 H, Gran # 9.8 H, Total Counted Pending, Lymphocytes % 4.8 L, Monocytes % 6.4, Eosinophils % 0.2, Basophils % 0.8, Neutrophils Pending, Lymphocytes (Manual) Pending, Lymphocytes # 0.5 L, Monocytes # 0.7, Eosinophils # 0.0, Basophils # 0.1, Platelet Estimate Pending, PUBS MCHC 28.9 L, MCH 29.2 04/20/17 0345: Urine Color YELLOW, Urine Appearance CLEAR, Urine pH 5.5, Ur Specific [place] 1.020, Urine Protein 2+ H, Urine Ketones TRACE H, Urine Blood NEGATIVE, Urine Nitrate NEGATIVE, Urine Bilirubin NEGATIVE, Urine Urobilinogen 0.2, Ur Leukocyte Esterase NEGATIVE, Urine WBC OCC, Urine Bacteria 1+, Urine Glucose 3+ H 04/20/17 0316: ABG pH 7.38, ABG pCO2 (Temp Corrct 49.0 H, ABG pO2 (Temp Correct 72.0 L, ABG HCO3 28.0 H, ABG Total CO2 29.0 H, ABG O2 Sat (Calculated) 93, ABG Base Excess 3.1 H, Casey Test NON APPLICABLE, Blood Gas Comments RIGHT BRACHIAL Current Medication Orders Sig/Brendon Start time Last Medication Dose Route Stop Time Status Admin Sodium Chloride 1,000 ML .Q1H1M 04/20 0415 AC 04/20 IV 04/20 0617 0442 Sodium Chloride 10 ML PRN PRN 04/20 0415 AC IV 04/21 0410 Sodium Chloride 1,000 ML .STK-MED ONE 04/20 0303 DC IV Acetaminophen 650 MG ONCE ONE 04/20 0300 DC 04/20 NC 04/20 0301 0255 Albuterol/Ipratropium 3 ML ONCE ONE 04/20 0300 DC INH 04/20 0301 Sodium Chloride 10 ML PRN PRN 04/20 0300 AC IV 04/21 0258 Acetaminophen 0 .STK-MED ONE 04/20 0250 DC NC Orders Procedure Date/time Status Decision to admit 04/20 0409 Active DIFFERENTIAL-WBC 04/20 0400 Active ELECTROCARDIOGRAM REQUEST 04/20 0300 Active RT REQUEST DUONEB 04/20 0300 Active ARTERIAL BLOOD GAS REQUEST 04/20 0300 Active CHEST-PORTABLE 04/20 0300 Active IV SALINE LOCK 04/20 0300 Active OXYGEN PER NURSE 04/20 0300 Active URINARY CATHETER INSERT 04/20 0300 Active MANUAL ARTS THERAPIST 04/20 0300 Active CULTURE, BLOOD 04/20 0300 Active URINALYSIS/COMPLETE 04/20 0300 Complete LACTIC ACID 04/20 0300 Complete CBC WITH AUTO DIFF 04/20 0300 Active CARDIAC ENZYMES 04/20 0300 Complete CHEM 12 PROFILE 04/20 0300 Complete 12 LEAD EKG-ALCIRA (INITIAL) 04/20 0251 Active CM/EKG CM/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 ST/Twave chgs, RBBB XRAY/CT/US XRAY/CT/US XRAY chest XR interpretation by reviewed by me Xray Results abnormal (hcap) Departure Departure Time of Disposition 0359 Disposition Still a Patient Clinical Impression Primary Impression: HCAP (healthcare-associated pneumonia) Secondary Impressions: ARF (acute renal failure) Qualifiers: Acute renal failure type: unspecified Qualified Code: N17.9 - Acute kidney failure, unspecified Diabetes mellitus Qualifiers: Diabetes mellitus type: due to underlying condition Diabetes mellitus complication status: with unspecified complications Diabetes mellitus oysterman insulin use: unspecified oysterman insulin use status Qualified Code: E08.8 - Diabetes mellitus due to underlying condition with unspecified complications Non-STEMI (non-ST elevated myocardial infarction) RBBB Condition STABLE ED Critical Care Critical Care Yes Time spent 30-74 min Vital system(s) involved: Respiratory Failure I was present at bedside for Coordinating pt's care, Interpreting EKGs/Strips , For re-examinations, Examining radiographs at 0450
--- NOTE | 2017-04-20 03:41 | Emergency Room Report ---
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 AND BLOOD SUGAR. 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 Y Clinical Suspician of Infection? Y Mental Status: 1 - Regular (Normal Baseline) Sepsis Risk:Severe Sepsis Risk Have you (or family members/close friends) recently traveled outside the [place]? N If Yes, where/when: Have you had exposure to infectious disease within the past month? N TB? Other? Specify: Source patient, RN notes reviewed, old records Exam Limitations no limitations Comment pt with fever and congestion at ecf with dec loc - ecf tried to treat pt but he needed higher o2 than then could deliver - pt unable to give hx Cardiac Chest Pain Chest pain indicative of cardiac No Timing/Duration this evening Severity moderate ALLERGIES Coded Allergies: tuberculin, purified protein deriva (tuberculin,purif.prot.deriv.) (04/24/15) Home Medications Active Scripts Diazepam (Diastat Acudial) 10 MG SD PRN PRN seizure #2 EACH Ref 2 Prov: 11/23/15 Pantoprazole Sodium (Protonix) 40 MG GT BID #60 Prov: 11/14/16 NUT.SUP,SPEC.FRM,L-FR,IRON/FOS (Twocal Hn Liquid) 35 ML PO Q1HP PRN tube feeds #1 BOT Ref 11 Prov: 02/04/17 CLINDAMYCIN PALMITATE HCL (Clindamycin Pediatric) 20 ML PO Q8 #420 ML Prov: 02/04/17 Reported Medications Baclofen 10 MG GT BID Acetaminophen (Tylenol XS 500MG) 2 TABS GT Q4-6HP PRN FEVER/PAIN Glipizide (Glipizide 5MG) 5 MG GT DAILY LACTOSE-REDUCED FOOD/FIBER (Isosource 1.5 Jey Liquid) 250 ML GT BID Levetiracetam (Keppra) 1,000 MG GT BID TETRAHYDROZOLINE HCL (Opti-Clear 15 Ml) 2 DROP OP TID AMINO ACIDS/PROTEIN HYDROLYS (Pro-Stat Profile Liquid) 237 ML GT DAILY LACTOSE-REDUCED FOOD/FIBER (Isosource 1.5 Jey Tube Feed Lq) 50 ML FT E12 LISINOPRIL (Lisinopril) 10 MG PO DAILY Metoclopramide Hydrochloride (Metoclopramide HCl) 5 MG GT QID #120 TAB LOPERAMIDE HCL (Loperamide) 2 MG GT Q4HP Senna Pod (Senokot Tablet) 8.6 MG GT DAILY History Medical History General CAD? No Angina: No NE: No Hypertension? Yes Hyperlipidemia? No CHF? No DVT? No PE? No COPD? No Asthma? No Anemia? Yes GERD? No Gastric ulcers? No GI Bleed? No Hernia? No Thyroid Problems? No Hypothyroidism? No CVA? Yes Seizures? Yes Diabetes? Yes Insulin Dependent: No Insulin Pump: No Home FSBS? No Renal Insuffiency? Yes End Stage Renal Disease? No UTI? Yes Stones? No BPH? No GB Disease: No Nephritic Syndrome? No Asplenia? No Hepatitis? No Sickle Cell Disease? No Arthritis? No Migraines? No Cataracts? No Glaucoma? No MRSA? Yes HIV? No TB? No Anxiety? No Depression? No Cancer? No More? Yes Additional hx: SUBARACHNOID HEMORRHAGE, HX A FIB DEMENITA Immunization Hx DT/Tetanus Unknown Flu 4040-0747 Flu Season Pneumonia Unknown Surgical Hx Previous Surgery?Y G-TUBE PLACEMENT Family History Family Hx Diabetes Yes CAD Yes Hypertension Yes Hyperlipidemia Yes Cancer No TB No Social History Smoking Hx Smoker: Never Smoker Tobacco: No Packs/day N/A Alcohol Alcohol: No Drugs none Review of Systems All Other Systems Reviewed and Negative Constitutional see HPI, fever Eyes denies drainage Respiratory see HPI, shortness of breath Comment unable to obtain sec to illness Physical Exam Vital Signs Vital Signs Date Time Temp Pulse Resp B/P Pulse O2 O2 Flow FiO2 Ox Delivery Rate 04/20 0352 138 28 112/53 91 04/20 0250 105.2 144 26 125/60 86 15 - WBC >12,000 or <4,000 or 10% bands? 2 or more SIRS Criteria Met? B/P:112/53 MAP:81 Creatinine >2.0? UA output<0.5ml/kg/hr for 2 hrs? Platelet count >100,000? Lactate >2.0mmol/1? INR >1.2 or PTT > than 60 sec? Evidence of Organ Dysfunction? Provider documented clinical suspician of infection? Y Sepsis Criteria Count: 3 Sepsis Risk: Severe Sepsis Risk General Appearance moderate distress, lethargic Eye Exam Comment no icterus Ear, Nose, Throat dry mm Neck limited range of motion Respiratory Status Yes: respiratory distress. Lung Sounds bilateral: decreased breath sounds, rhonchi. Cardiovascular tachycardia, gallop/S4 Peripheral Pulses Pulses normal Yes Gastrointestinal soft, g tube Extremities contractures Neurologic obtunded w/o focal changes or posturing Reflexes Reflexes normal No Mental status altered mental status Skin intact Medical Decision Making LABS/Meds/Orders Pt receiving controlled substance in ED? No Results/Orders Laboratory Tests 04/20/17 0400: Lactic Acid 6.9 H 04/20/17 0400: Sodium 153 *H, Potassium 4.0, Chloride 111 H, Carbon Dioxide 34 H, BUN 59 H, Creatinine 3.4 H, Estimated Creat Clear 20 L, Estimated GFR (MDRD) 18, Glucose 726 *H, Calcium 9.6, Total Bilirubin 0.7, AST 14 L, ALT 25, Alkaline Phosphatase 136 H, Creatine Kinase 102, CK-MB (CK-2) Rel Index 0.5, CK and CKMB Interp < 0.5, Troponin I 1.46 H, Total Protein 8.6 H, Albumin 3.0 L, Globulin 5.6 H, Albumin/Globulin Ratio 0.5 L, WBC 11.2 H, RBC 5.26, Hgb 15.3, Hct 53.1 H, MCV 101.0 H, RDW 16.8, Plt Count 192, MPV 11.8 H, Gran % 87.8 H, Gran # 9.8 H, Total Counted Pending, Lymphocytes % 4.8 L, Monocytes % 6.4, Eosinophils % 0.2, Basophils % 0.8, Neutrophils Pending, Lymphocytes (Manual) Pending, Lymphocytes # 0.5 L, Monocytes # 0.7, Eosinophils # 0.0, Basophils # 0.1, Platelet Estimate Pending, PUBS MCHC 28.9 L, MCH 29.2 04/20/17 0345: Urine Color YELLOW, Urine Appearance CLEAR, Urine pH 5.5, Ur Specific [place] 1.020, Urine Protein 2+ H, Urine Ketones TRACE H, Urine Blood NEGATIVE, Urine Nitrate NEGATIVE, Urine Bilirubin NEGATIVE, Urine Urobilinogen 0.2, Ur Leukocyte Esterase NEGATIVE, Urine WBC OCC, Urine Bacteria 1+, Urine Glucose 3+ H 04/20/17 0316: ABG pH 7.38, ABG pCO2 (Temp Corrct 49.0 H, ABG pO2 (Temp Correct 72.0 L, ABG HCO3 28.0 H, ABG Total CO2 29.0 H, ABG O2 Sat (Calculated) 93, ABG Base Excess 3.1 H, Casey Test NON APPLICABLE, Blood Gas Comments RIGHT BRACHIAL Current Medication Orders Sig/Brendon Start time Last Medication Dose Route Stop Time Status Admin Sodium Chloride 1,000 ML .Q1H1M 04/20 0415 AC 04/20 IV 04/20 0617 0442 Sodium Chloride 10 ML PRN PRN 04/20 0415 AC IV 04/21 0410 Sodium Chloride 1,000 ML .STK-MED ONE 04/20 0303 DC IV Acetaminophen 650 MG ONCE ONE 04/20 0300 DC 04/20 SD 04/20 0301 0255 Albuterol/Ipratropium 3 ML ONCE ONE 04/20 0300 DC INH 04/20 0301 Sodium Chloride 10 ML PRN PRN 04/20 0300 AC IV 04/21 0258 Acetaminophen 0 .STK-MED ONE 04/20 0250 DC SD Orders Procedure Date/time Status Decision to admit 04/20 0409 Active DIFFERENTIAL-WBC 04/20 0400 Active ELECTROCARDIOGRAM REQUEST 04/20 0300 Active RT REQUEST DUONEB 04/20 0300 Active ARTERIAL BLOOD GAS REQUEST 04/20 0300 Active CHEST-PORTABLE 04/20 0300 Active IV SALINE LOCK 04/20 0300 Active OXYGEN PER NURSE 04/20 0300 Active URINARY CATHETER INSERT 04/20 0300 Active YOKE SETTER 04/20 0300 Active CULTURE, BLOOD 04/20 0300 Active URINALYSIS/COMPLETE 04/20 0300 Complete LACTIC ACID 04/20 0300 Complete CBC WITH AUTO DIFF 04/20 0300 Active CARDIAC ENZYMES 04/20 0300 Complete CHEM 12 PROFILE 04/20 0300 Complete 12 LEAD EKG-ALCIRA (INITIAL) 04/20 0251 Active CM/EKG 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 ST/Twave chgs, RBBB XRAY/CT/US XRAY/CT/US XRAY chest XR interpretation by reviewed by me Xray Results abnormal (hcap) Departure Departure Time of Disposition 0359 Disposition Still a Patient Clinical Impression Primary Impression: HCAP (healthcare-associated pneumonia) Secondary Impressions: ARF (acute renal failure) Qualifiers: Acute renal failure type: unspecified Qualified Code: N17.9 - Acute kidney failure, unspecified Diabetes mellitus Qualifiers: Diabetes mellitus type: due to underlying condition Diabetes mellitus complication status: with unspecified complications Diabetes mellitus joint terminal attack controller insulin use: unspecified joint terminal attack controller insulin use status Qualified Code: E08.8 - Diabetes mellitus due to underlying condition with unspecified complications Non-STEMI (non-ST elevated myocardial infarction) RBBB Condition STABLE ED Critical Care Critical Care Yes Time spent 30-74 min Vital system(s) involved: Respiratory Failure I was present at bedside for Coordinating pt's care, Interpreting EKGs/Strips , For re-examinations, Examining radiographs at 0450
--- OUTSIDE RECORDS SUMMARY | 2017-04-20 04:17 | External Medical Summary Rpt | CCD ---
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 Name Role Phone aMurice Cloud MD, Unavailable Unavailable Maurice Cloud MD Purpose Continuity of Care Document - 02-13-2013 through 2016 Problems Code Diagnosis DOS Provider Status 486 Pneumonia [facility] D64.9 ANEMIA, UNSPECIFIED K92.2 GASTROINTES TINAL HEMORRHAGE, [...] 41 20 ng RA 40 13 er MT 1 DE Ac ti 10 ve MG [...] MG Ac ti Ta ve bl et MT 63 09 1 No RT 73 -0 [...] Order Detail nces retati t Range on Arterial blood gas (04-20-2017 03:16) Arteria = 3.1 -2.4-+2 complet l blood 017 MMOL/L .3 ed base 03:16 excess determi nation Casey's NON complet test 017 APPLICA ed before 03:16 BLE NON arteria l blood APPLICA gas BLE L Arteria = 28.0 22.0-26 complet l blood 017 MMOL/L .0 ed 03:16 bicarbo jen measure ment ( Arteria = 100% complet l blood 017 ed total 03:16 oxygen content sunita Arteria = 49.0 35.0-45 complet l blood 017 MMHG .0 ed 03:16 partial pressur e of carbo Arteria = 7.38 7.35-7. complet l blood 017 MMOL/L 45 ed pH 03:16 measure ment Arteria = 72.0 80-100 complet l whole 017 MMHG ed blood 03:16 PO2 at POC Arteria = 93 % 90-100 complet l blood 017 ed oxygen 03:16 saturat ion calcula SOURCE RIGHT complet 017 BRACHIA ed 03:16 L Arteria = 29.0 23-27 complet l blood 017 MMOL/L ed carbon 03:16 dioxide , total [place] Gas panel in Arterial blood (04-20-2017 03:16) Arteria NON complet l 017 APPLICA ed patency 03:16 BLE Wrist artery --pre arteria l punctur e SOURCE RIGHT complet 017 BRACHIA ed 03:16 L Urinalysis dipstick W Reflex Microscopic panel in [...] Crossmatch panel in Blood (11-12-2016 20:28) Blood 11-12- NEGATIV NEGATIV complet group 017 E E ed antibod 20:28 y screen [Presen ce] in Serum or Plasma Rh 06-08-2 POSITIV complet [Type] 017 E ed in 20:28 Blood ABO 06-08-2 O complet group 017 ed [Type] 20:28 [...] Crossmatch panel in Blood (11-09-2016 19:05) Blood 11-09- NEGATIV NEGATIV complet group 017 E E [...] 013 gm/dL ed SerPl-m 08:54 Cnc Globuli 4.3 1.3-3.2 complet n 013 [...] SerPl-m 08:54 Cnc PROTIME/INR (03-13-2013 08:54) PROTHRO 03-13-2 23.4 9.9-11. complet MBIN 013 SECONDS 6 ed TIME 08:54 INR Bld 2 2.17 0.9-1.1 complet 013 UNK ed 08:54 CBC with AUTO DIFF (03-13-2013 08:54) WBC # 10-07-2 6.0 4.8-10. complet Bld 013 K/MM3 8 ed Auto 08:54 RBC # 07-2 4.99 4.6-6.2 complet Bld 013 M/mm3 ed Auto 08:54 Hgb 03-13-2 16.4 14.1-18 complet Bld-mCn 013 g/dL .0 ed c 08:54 Hct Fr 49.3 % 42.0-52 complet Bld 013 .0 ed 08:54 MCV RBC 03-13-2 98.8 fl 82.2-97 complet 013 .8 ed 08:54 MCH RBC 03-13-2 32.8 pg 27-31.2 complet Qn 013 ed Auto 08:54 MEAN 03-13-2 33.2 31.8-35 complet CORPUSC 013 g/dl .4 ed ULAR 08:54 HGB CONC RDW RBC 03-13-2 14.9 % 11.5-17 complet Auto 013 .5 ed 08:54 Platele 2 84 142-424 complet t Bld 013 K/mm3 ed Ql 08:54 Manual MEAN 03-13-2 10.3 fl 7.4-10. complet PLATELE 013 4 ed T 08:54 VOLUME Granulo 03-13-2 67.2 % 37.0-80 complet cytes 013 .0 ed Fr Bld 08:54 Auto LYMPH % 07-2 21.7 % 10-50 complet 013 ed 08:54 Monocyt 07-2 6.3 % 1.7-9.3 complet es Fr 013 [...] with AUTO DIFF (02-14-2013 06:20) WBC # 09-10-2 5.3 4.8-10. complet Bld 013 K/MM3 8 ed Auto 06:20 RBC # 09-10-2 4.27 4.6-6.2 complet Bld 013 M/mm3 ed Auto 06:20 Hgb 09-10-2 14.1 14.1-18 complet Bld-mCn 013 g/dL .0 ed c 06:20 Hct Fr -10-2 42.9 % 42.0-52 complet Bld 013 .0 ed 06:20 MCV RBC 09-10-2 100.3 82.2-97 complet 013 fl .8 ed 06:20 MCH RBC 09-10-2 33.1 pg 27-31.2 complet Qn 013 ed Auto 06:20 MEAN 09-10-2 33.0 31.8-35 complet CORPUSC 013 g/dl .4 ed ULAR 06:20 HGB CONC RDW RBC 09-10-2 14.4 % 11.5-17 complet Auto 013 .5 ed 06:20 Platele 09-10-2 121 142-424 complet t Bld 013 K/mm3 ed Ql 06:20 Manual MEAN -10-2 9.5 fl 7.4-10. complet PLATELE 013 4 ed T 06:20 VOLUME Granulo 09-10-2 63.8 % 37.0-80 complet cytes 013 .0 [...] 013 K/mm3 ed Bld 06:20 Auto Lymphoc 09-10-2 1.2 0.7-4.5 complet ytes Fr 013 K/mm3 [...] michele Ran 013 ug/mL ed 18:00 SerPl-m [facility] Tobramycin Ran SerPl-mCnc (02-13-2013 10:35) Tobramy 02-13-2 7.9 complet michele Ran 013 ug/mL ed 10:35 SerPl-m [facility] COMPREHENSIVE METABOLIC PANEL (02-13-2013 01:18) Glucose 107 [...] ed Cnc 01:18 PROTIME/INR (02-13-2013 01:18) PROTHRO 26.8 9.9-11. complet MBIN 013 SECONDS 6 ed TIME 01:18 INR Bld 2.48 0.9-1.1 complet 013 UNK ed 01:18 CBC with AUTO DIFF (02-13-2013 01:18) WBC # 09-09-2 5.0 4.8-10. complet Bld 013 K/MM3 8 ed Auto 01:18 RBC # 09-2 4.43 4.6-6.2 complet Bld 013 M/mm3 ed Auto 01:18 Hgb 09-2 14.6 14.1-18 complet Bld-mCn 013 g/dL .0 ed c 01:18 Hct Fr 02-13-2 44.0 % 42.0-52 complet Bld 013 .0 ed 01:18 MCV RBC 02-13- 99.4 fl 82.2-97 complet 013 .8 ed 01:18 MCH RBC 02-13-2 33.1 pg 27-31.2 complet Qn 013 ed Auto 01:18 MEAN 02-13-2 33.3 31.8-35 complet CORPUSC 013 g/dl .4 ed ULAR 01:18 HGB CONC RDW RBC 14.2 % 11.5-17 complet Auto 013 .5 ed 01:18 Platele 02-13-2 120 142-424 complet t Bld 013 K/mm3 ed Ql 01:18 Manual MEAN 9.6 fl 7.4-10. complet PLATELE 013 4 ed T 01:18 VOLUME Granulo 09-2 50.0 % 37.0-80 complet cytes 013 .0 ed Fr Bld 01:18 Auto LYMPH % 09-2 37.5 % 10-50 complet 013 ed 01:18 Monocyt 09-2 8.2 % 1.7-9.3 complet es Fr 013 ed Bld 01:18 Auto Eosinop -09-2 4.0 % 0.1-12. complet hil Fr 013 0 ed Bld 01:18 Auto Basophi 09-2 0.4 % 0.1-2.0 complet ls Fr 013 ed Bld 01:18 Auto Granulo -09-2 2.5 1.3-8.0 complet cytes # 013 K/mm3 ed Bld 01:18 Auto Lymphoc -09-2 1.9 0.7-4.5 complet ytes Fr 013 K/mm3 ed Bld 01:18 Auto Monocyt -09-2 0.4 0.1-1.0 complet es # 013 K/mm3 ed Bld 01:18 Auto Eosinop 0.2 0.0-0.4 complet hil # 013 K/mm3 ed Bld 01:18 Auto Basophi 0.0 0-0.2 complet ls # 013 K/MM3 ed Bld 01:18 Auto MYCOPLASMA IGM (RAPID) (02-13-2013 01:18) MYCOPLA NON-MATTHEW NONREAC complet SMA IGM 013 CTIVE TIVE ed 01:18 (RAPID) Encounters Encounter Start End Date Code Location Performer Type Date Emergency TRAE Flynn MD (ER) 3 07:50 3 10:29 [facility] Inpatient IMP Wilmer Cloud MD ([place]) 3 01:49 3 10:10 [facility]
--- OUTSIDE RECORDS SUMMARY | 2017-04-20 04:17 | External Medical Summary Rpt | CCD ---
Author Author , LORENA CARRILLO Address Unknown Phone [email or web address] Care Team Providers Care Cabin Crew Name Role Phone Maurice Cloud MD, Unavailable Unavailable Maurice Cloud MD Purpose Continuity of Care Document - 02-13-2013 through 2016 Problems Code Diagnosis DOS Provider Status 486 Pneumonia [facility] D64.9 ANEMIA, UNSPECIFIED K92.2 GASTROINTES [...] 41 20 ng RA 40 13 er DE 1 DE Ac ti 10 ve MG [...] MG Ac ti Ta ve bl et DE 63 09 1 No RT 73 -0 [...] michele Ran 013 ug/mL ed 18:00 SerPl-m [facility] Tobramycin Ran SerPl-mCnc (02-13-2013 10:35) Tobramy 02-13-2 7.9 complet michele Ran 013 ug/mL ed 10:35 SerPl-m [facility] COMPREHENSIVE METABOLIC PANEL (02-13-2013 01:18) Glucose 107 [...] Flynn MD (ER) 3 07:50 3 10:29 [facility] IMP Wilmer Cloud MD (IN) 3 01:49 3 10:10 [facility]
--- OUTSIDE RECORDS SUMMARY | 2017-04-20 04:18 | External Medical Summary Rpt | CCD ---
Demographics Preferred Language [place] Marital Status Unknown Hinduism Affiliation Unknown Race Unknown Ethnic Group Unknown Author Author , LORENA CARRILLO Address Unknown Phone Immunization No patient found.
--- OUTSIDE RECORDS SUMMARY | 2017-04-20 04:18 | External Medical Summary Rpt | CCD ---
Demographics Preferred Language [place] Marital Status Unknown Mandaen Affiliation Unknown Race Unknown Ethnic Group Unknown Author Author , LORENA CARRILLO Address Unknown Phone Immunization No patient found.
--- OUTSIDE RECORDS SUMMARY | 2017-04-20 04:20 | External Medical Summary Rpt ---
Author Author LORENA Leila, [employer] Address Unknown Phone Unavailable Results Gas panel in Arterial blood Observa Value Referen Units Interpr Notes Date tion ce etation Range Base -2.4-+2.3 MMOL/L High No Apr 20 excess in informati 2017 3:16 Arterial on in AM blood source data Arteria NON No No No No Apr 14 l APPLICA informa informa informa informa 2017 patency BLE tion in tion in tion in tion in 3:16 AM Wrist source source source source artery data data data data --pre arteria l punctur e Bicarbona 22.0 - MMOL/L High No Apr 20 te 26.0 informati 2017 3:16 [Moles/vo on in AM lume] in source Arterial data blood Oxygen No No No No Apr 14 content informati informati informati informati 2017 3:16 in on in on in on in on in AM Arterial source source source source blood data data data data Carbon 35.0 - MMHG High No Apr 20 dioxide 45.0 informati 2017 3:16 [Partial on in AM pressure] source in data Arterial blood pH of 7.35 - MMOL/L Normal No Apr 20 Arterial 7.45 informati 2016 3:16 blood on in AM source data Oxygen 80 - 100 MMHG Low No Apr 14 [Partial informati 2017 3:16 pressure] on in AM in source Arterial data blood Oxygen 90 - 100 % Normal No Apr 14 saturatio informati 2017 3:16 n.calcula on in AM jessica from source oxygen data partial pressure in Arterial blood SOURCE RIGHT No No No No Apr 14 BRACHIA informa informa informa informa 2017 L tion in tion in tion in tion in 3:16 AM source source source source data data data data Carbon 23 - 27 MMOL/L High No Apr 20 dioxide, informati 2017 3:16 total on in AM [Moles/vo source lume] in data Arterial blood Glucose [Mass/volume] in Capillary blood by Glucometer Observa Value Referen Units Interpr Notes Date tion ce etation Range Glucose 70 - 110 mg/dl High No Feb 04 [Mass/vol informati 2016 6:13 ume] in on in AM Capillary source blood by data Glucomete r Glucose [Mass/volume] in Capillary blood by Glucometer Observa Value Referen Units Interpr Notes Date tion ce etation Range Glucose 70 - 110 mg/dl High No Feb 03 [Mass/vol informati 2016 9:08 ume] in on in PM Capillary [...] mg/dl High No Feb 03 [Mass/vol informati 2016 ume] in on in 11:11 AM Capillary source blood by data Glucomete r Glucose [Mass/volume] in Capillary blood by Glucometer Observa Value Referen Units Interpr Notes Date tion ce etation Range Glucose 70 - 110 mg/dl High No Feb 03 [Mass/vol informati 2016 6:11 ume] in on in AM Capillary [...] High No Feb 02 [Mass/vol informati 2017 5:19 ume] in on in PM Capillary [...] Normal No Feb 02 e renal informati 2017 6:30 clearance on in AM source predicted [...] mg/dL Low No Feb 01 nitrogen informati 2016 6:56 [Mass/vol on in AM ume] in [...] - 5.1 mmoL/L Low alert Feb 01 2016 6:56 [Moles/vo CRITICAL AM lume] in RESULTS Serum or Plasma RESU LTS CALLED TO: SEDRICK 02/01/17 0725 June Suggs Sodium 136 - 145 mmoL/L Normal No Feb 01 [Moles/vo informati 2017 6:56 lume] in on in AM Serum or source Plasma data CBC W Auto Differential panel in Blood Observa Value Referen Units Interpr Notes Date tion ce etation Range Basophils 0 - 0.2 K/MM3 Normal No Feb 01 informati 2017 6:56 [#/volume on in AM ] in source Blood by data Automated count Basophils 0.1 - 2.0 % Normal No Feb 01 / informati 2017 6:56 leukocyte on in AM s in source Blood by data Automated count Eosinophi 0.0 - 0.4 K/mm3 Normal No Feb 01 ls informati 2016 6:56 [#/volume on in AM ] in source Blood by data Automated count Eosinophi 0.1 - % Normal No Feb 01 ls/100 12.0 informati 2017 6:56 leukocyte on in AM [...] Automated count Hematocri 42.0 - % Low Feb 01 t [Volume 52.0 informati 2017 6:56 on in AM Fraction] source of Blood data Hemoglobi 14.1 - g/dL Low No Feb 01 n 18.0 informati 2016 6:56 [Mass/vol on in AM ume] in source Blood data Lymphocyt 0.7 - 4.5 K/mm3 Normal No Feb 01 es informati 2016 6:56 [#/volume on in AM ] in source Unspecifi data ed specimen by Automated count Lymphocyt 10 - 50 % Normal No Feb 01 es informati 2016 6:56 [#/volume on in AM ] in source Unspecifi data ed specimen by Automated count Erythrocy 27 - 31.2 pg Normal No Feb 01 te mean informati 2016 6:56 corpuscul on in AM ar source hemoglobi data n [Entitic mass] Erythrocy 31.8 - g/dl Normal No Feb 01 te mean 35.4 informati 2016 6:56 corpuscul on in AM ar source hemoglobi data n concentra tion [Mass/vol ume] by Automated count Erythrocy 82.2 - fl Normal No Feb 01 te mean 97.8 informati 2016 6:56 corpuscul on in AM ar volume source [Entitic data volume] by Automated count Monocytes 0.1 - 1.0 K/mm3 Normal No Feb 01 informati 2016 6:56 [#/volume on in AM ] in source Blood by data Automated count Monocytes 1.7 - 9.3 % Normal No Feb 01 /100 informati 2017 6:56 leukocyte on in AM s in source Blood by data Automated count Platelet 7.4 - fl High No Feb 01 mean 10.4 informati 2017 6:56 [...] Normal No Feb 01 te 17.5 informati 2016 6:56 distribut on in AM ion width source [Entitic data volume] by Automated count Leukocyte 4.8 - K/MM3 Normal No Feb 01 s 10.8 informati 2016 6:56 [#/volume on in AM ] in source Blood data Glucose [Mass/volume] in Capillary blood by Glucometer Observa Value Referen Units Interpr Notes Date tion ce etation Range Glucose 70 - 110 mg/dl Normal No Feb 01 [Mass/vol informati 2016 6:07 ume] in on in AM Capillary source blood by data Glucomete r Glucose [Mass/volume] in Capillary blood by Glucometer Observa Value Referen Units Interpr Notes Date tion ce etation Range Glucose 70 - 110 mg/dl Normal No Jan 31 [Mass/vol informati 2017 8:29 ume] in on in PM Capillary [...] No No Jan 31 [Mass/vol informati informati 2016 ume] in on in on in 11:09 AM Capillary source source blood by data data Glucomete r Vancomycin [Mass/volume] in Serum or Plasma --trough Observa Value Referen Units Interpr Notes Date tion ce etation Range COMMENTS TO [employer] AND [employer]ER: PLEASE CALL PHARMACY WITH RESULTS Vancomyci 5.0 - mcg/mL High No Jan 31 n 10.0 informati 2017 8:33 [Mass/vol on in AM ume] in source Serum or data Plasma --trough Glucose [Mass/volume] in Capillary blood by Glucometer Observa Value Referen Units Interpr Notes Date tion ce etation Range Glucose 70 - 110 mg/dl High No Jan 31 [Mass/vol informati 2016 6:27 ume] in on [...] Units Interpr Notes Date ti etation Range Urea 7 - 18 mg/dL [...] Normal No Jan 29 dioxide, 32.0 informati 2017 6:30 total on in AM [Moles/vo source lume] in data Serum or Plasma Creatinin 0.70 - mg/dL No No Jan 29 e 1.30 informati informati 2017 6:30 [Mass/vol [...] - 2.0 % Normal No Jan 29 /100 informati [...] Normal No Jan 29 keyshawn/100 80.0 informati 2016 6:30 leukocyte on in AM s in source Blood by data Automated count Hematocri 42.0 - % Low No Jan 29 t [Volume 52.0 informati 2016 6:30 on in AM Fraction] source of Blood data Hemoglobi 14.1 - g/dL Low No Jan 29 n 18.0 informati 2016 6:30 [Mass/vol on in AM [...] Normal No Jan 29 te mean informati 2017 6:30 corpuscul on in AM [...] Normal No Jan 29 te 17.5 informati 2017 6:30 distribut on in AM ion width source [Entitic data volume] by Automated count Leukocyte 4.8 - K/MM3 Normal No Jan 29 s 10.8 informati 2017 6:30 [#/volume on in AM [...] Interpr Notes Date tion ce etation Range Vancomyci 5.0 - mcg/mL [...] 0.0 - 0.4 K/mm3 Normal No Jan 28 ls informati 2016 7:18 [#/volume on in AM ] in source Blood by data Automated count Eosinophi 0.1 - % Normal No Jan 28 ls/100 12.0 informati 2016 7:18 leukocyte on in AM s in source Blood by data Automated count Granulocy 1.3 - 8.0 K/mm3 Normal No Jan 28 keyshawn informati 2016 7:18 [#/volume on in AM ] in source Blood by data Automated count Granulocy 37.0 - % Normal No Jan 28 keyshawn/100 80.0 informati 2017 7:18 leukocyte on in AM s in source Blood by data Automated count Hematocri 42.0 - % Low No Jan 28 t [Volume 52.0 informati 2017 7:18 on in AM Fraction] source of Blood data Hemoglobi 14.1 - g/dL Low No Jan 28 n 18.0 informati 2017 7:18 [Mass/vol on in AM ume] in [...] Normal No Jan 28 te mean informati 2017 7:18 corpuscul on in AM ar source hemoglobi data n [Entitic mass] Erythrocy 31.8 - g/dl Low No Jan 28 te mean 35.4 informati 2017 7:18 corpuscul on in AM ar source hemoglobi data n concentra tion [Mass/vol ume] by Automated count Erythrocy 82.2 - fl Normal No Jan 28 te mean 97.8 informati 2017 7:18 corpuscul on in AM ar volume source [Entitic data volume] by Automated count Monocytes 0.1 - 1.0 K/mm3 Normal No Jan 28 informati 2017 7:18 [#/volume on in AM ] in source Blood by data Automated count Monocytes 1.7 - 9.3 % Normal No Jan 24 /100 informati 2017 7:18 leukocyte on in AM [...] Normal No Jan 28 te 17.5 informati 2017 7:18 distribut on in AM ion width [...] - 2.0 % Normal No Jan 27 informati 2016 6:36 leukocyte on in AM s in source Blood by data Automated count Eosinophi 0.0 - 0.4 K/mm3 Normal No Jan 27 ls informati 2016 6:36 [#/volume on in AM ] in source Blood by data Automated count Eosinophi 0.1 - % Normal No Jan 27 ls/100 12.0 informati 2016 6:36 leukocyte on in AM s in source Blood by data Automated count Granulocy 1.3 - 8.0 K/mm3 High No Jan 27 keyshawn informati 2017 6:36 [#/volume on in AM [...] Blood data Hemoglobi 14.1 - g/dL Low Jan 27 n 18.0 informati 2017 6:36 [Mass/vol on in AM ume] in source Blood data Lymphocyt 0.7 - 4.5 K/mm3 Normal No Jan 27 es informati 2017 6:36 [#/volume on in AM ] in source Unspecifi data ed specimen by Automated count Lymphocyt 10 - 50 % Low No Jan 27 es informati 2017 6:36 [...] % Normal No Jan 27 /100 informati 2017 6:36 leukocyte on in AM [...] M/mm3 Normal No Jan 27 keyshawn informati 2017 6:36 [#/volume on in AM ] in source Amniotic data fluid Erythrocy 11.5 - % Normal No Jan 27 te 17.5 informati 2017 6:36 distribut on in AM ion width source [Entitic data volume] by Automated count Leukocyte 4.8 - K/MM3 High No Jan 27 s 10.8 informati 2017 6:36 [#/volume on in AM ] in source Blood data Basic metabolic panel in Blood Observa Value Referen Units Interpr Notes Date tion ce etation Range Urea 7 - 18 mg/dL Normal No Jan 27 nitrogen informati 2017 6:36 [Mass/vol on in AM ume] in source Serum or data Plasma Calcium 8.5 - mg/dL Low No Jan 27 [Mass/vol 10.1 informati 2016 6:36 ume] in on in AM Serum or source Plasma data Chloride 98 - 107 mmoL/L Normal No Jan 27 [Moles/vo informati 2016 6:36 lume] in on in AM Serum or source Plasma data Carbon 21.0 - mmoL/L Normal No Jan 27 dioxide, 32.0 informati 2016 6:36 total on in AM [Moles/vo source [...] 5.1 mmoL/L Normal No Jan 27 informati 2017 6:36 [Moles/vo on in AM lume] in [...] mg/dl High No Jan 27 [Mass/vol informati 2017 6:27 ume] in on in AM Capillary source blood by data Glucomete r Glucose [Mass/volume] in Capillary blood by Glucometer Observa Value Referen Units Interpr Notes Date ti ce etation Range Glucose 70 - 110 mg/dl High No Jan 27 [Mass/vol informati 2017 4:33 ume] in on in AM Capillary source blood by data Glucomete r Urinalysis dipstick W Reflex Microscopic panel in Urine Observa Value Referen Units Interpr Notes Date ti ce etation Range Appeara CLEAR CLEAR No No No Jan 26 nce of informa informa informa 2016 Urine tion in ti in tion in 8:20 PM source source source data data data Bacteri 3+ O No No No Jan 26 a informa informa informa 2016 [Presen tion in ti in tion in 8:20 PM ce] in [...] No Jan 26 of informa informa informa 2016 Urine tion in ti in tion in 8:20 PM source source source data data data Glucose NEG No High No Jan 26 [Mass/vol informati informati 2017 8:20 ume] in on in on in [...] No Jan 26 of informa informa informa 2016 Urine tion in tion in tion in 8:20 PM source source source data data data Glucose NEG No High No Jan 26 [Mass/vol informati informati 2016 8:20 ume] in on in on in PM Urine by source source Test data data strip Ketones TRACE NEG mg/dL Abnorma No Jan 26 l inform2016 [Presen tion in 8:20 PM ce] in [...] Normal No Jan 26 Urine informati informati 2016 8:20 on in on in PM source source data data Protein NEG mg/dL High No Jan 26 [Mass/vol informati 2016 8:20 ume] in on in PM Urine by source Automated data test strip Specific 1.005 - No Normal No Jan 26 gravity 1.030 informati informati 2016 8:20 of Urine on in on in [...] 0.2 K/MM3 Normal No Jan 26 informati 2016 7:45 [#/volume on in PM ] in source Blood by data Automated count Basophils 0.1 - 2.0 % Normal No Jan 26 / informati 2017 7:45 leukocyte on in PM s in source Blood by data Automated count Eosinophi 0.0 - 0.4 K/mm3 Normal No Jan 26 ls informati 2016 7:45 [#/volume on in PM ] in source Blood by data Automated count Eosinophi 0.1 - % Normal No Jan 26 ls/100 12.0 informati 2017 7:45 leukocyte on in PM s in source Blood by data Automated count Granulocy 1.3 - 8.0 K/mm3 High No Jan 26 keyshawn informati 2017 7:45 [#/volume on in PM ] in source Blood by data Automated count Granulocy 37.0 - % High No Jan 26 keyshawn/100 80.0 informati 2017 7:45 leukocyte on in PM s in source Blood by data Automated count Hematocri 42.0 - % Normal No Jan 26 t [Volume 52.0 informati 2017 7:45 on in PM Fraction] source of Blood data Hemoglobi 14.1 - g/dL No No Jan 26 n 18.0 informati informati 2017 7:45 [Mass/vol on in on in PM [...] Normal No Jan 26 te mean informati 2017 7:45 corpuscul on in PM ar source [...] 1.0 K/mm3 Normal No Jan 26 informati 2017 7:45 [#/volume on in PM ] in source Blood by data Automated count Monocytes 1.7 - 9.3 % Normal No Jan 26 / informati 2017 7:45 leukocyte on in PM s in source Blood by data Automated count Platelet 7.4 - fl High No Jan 26 mean 10.4 informati 2016 7:45 volume on in PM [Entitic source volume] data in Blood by Automated count Platelets 142 - 424 K/mm3 No No Jan 26 informati informati 2017 7:45 [#/volume on in on in PM ] in source source Blood data data Erythrocy 4.6 - 6.2 M/mm3 Normal No Jan 26 keyshawn informati 2016 7:45 [#/volume on in PM ] in source Amniotic data fluid Erythrocy 11.5 - % Normal No Jan 26 te 17.5 informati 2016 7:45 [...] 2 - 9 % Normal No Jan 26 /100 informati 2016 7:45 leukocyte on in PM s in source Blood by data Automated count Platele NORMAL No No No No Jan 26 ts informa informa informa informa 2016 [Presen tion in tion in tion in tion in 7:45 PM ce] in source source source source Blood data data data data by Light microsc opy Neutrophi 42 - 76 % High No Jan 26 ls ati 2016 7:45 [#/volume on in PM ] in source Blood by data Automated count Cells No #CELLS No No Jan 26 Counted informati informati informati 2016 7:45 Total [#] on in on in on in PM in Blood source source source data data data Lactate [Moles/volume] in Blood Observa Value Referen Units Interpr Notes Date tion ce etation Range Lactate 0.4 - 2.0 mmol/L Normal No Jan 26 [Moles/vo informati 2016 7:45 lume] in on in PM Blood source data Basic metabolic panel in Blood Observa Value Referen Units Interpr Notes Date tion ce etation Range Urea 7 - 18 mg/dL No No Nov 14 nitrogen informati informati 2016 6:30 [Mass/vol on in on in AM ume] in source source Serum or data data Plasma Calcium 8.5 - mg/dL Low No Nov 14 [Mass/vol 10.1 informati 2016 6:30 ume] in on in AM Serum or source Plasma data Chloride 98 - 107 mmoL/L High No Nov 10 [Moles/vo informati 2016 6:30 lume] in on in AM Serum or source Plasma data Carbon 21.0 - mmoL/L High No Nov 14 dioxide, 32.0 informati 2016 6:30 total on in AM [Moles/vo source lume] in data Serum or Plasma Creatinin 0.70 - mg/dL No No Nov 10 e 1.30 informati informati 2016 6:30 [Mass/vol [...] mg/dL High No Nov 14 [Mass/vol informati 2016 6:30 ume] in on in AM Serum or source Plasma data Potassium 3.5 - 5.1 mmoL/L Normal No Nov 14 informati 2016 6:30 [Moles/vo on in AM lume] in source Serum or data Plasma Sodium 136 - 145 mmoL/L High Nov 14 [Moles/vo alert 2017 6:30 lume] in CRITICAL AM Serum or RESULTS Plasma RESU LTS CALLED TO: SEDRICK 11/14/16 0734 June Suggs e CBC W Auto Differential panel in Blood Observa Value Referen Units Interpr Notes Date tion ce etation Range Basophils 0 - 0.2 K/MM3 Normal No Nov 14 informati 2016 6:06 [#/volume on in AM ] in source Blood by data Automated count Basophils 0.1 - 2.0 % Normal No Nov 14 informati 2016 6:06 leukocyte on in AM s in source Blood by data Automated count Eosinophi 0.0 - 0.4 K/mm3 Normal No Nov 10 ls informati 2016 6:06 [#/volume on in AM ] in source Blood by data Automated count Eosinophi 0.1 - % Normal No Nov 10 ls/100 12.0 informati 2017 6:06 leukocyte on in AM s in source Blood by data Automated count Granulocy 1.3 - 8.0 K/mm3 Normal No Nov 10 keyshawn informati 2016 6:06 [#/volume on in AM ] in source Blood by data Automated count Granulocy 37.0 - % Normal No Nov 10 keyshawn/100 80.0 informati 2017 6:06 leukocyte on in AM s in source Blood by data Automated count Hematocri 42.0 - % Low No Nov 14 t [Volume 52.0 informati 2017 6:06 on in AM Fraction] source of Blood data Hemoglobi 14.1 - g/dL Low No Nov 10 n 18.0 informati 2016 6:06 [Mass/vol on in AM ume] in [...] 27 - 31.2 pg High No Nov 10 te mean informati 2017 6:06 corpuscul on in AM ar source hemoglobi data n [Entitic mass] Erythrocy 31.8 - g/dl Normal No Nov 14 te mean 35.4 informati 2016 6:06 corpuscul on in AM ar source [...] % Normal No Gildardo 10 /100 informati 2016 6:06 leukocyte on in AM s in source Blood by data Automated count Platelet 7.4 - fl Normal No Nov 10 mean 10.4 informati 2016 6:06 volume on in AM [Entitic source volume] data in Blood by Automated count Platelets 142 - 424 K/mm3 Low No Nov 10 informati 2017 6:06 [#/volume on in AM ] in source Blood data Erythrocy 4.6 - 6.2 M/mm3 Low No Nov 10 keyshawn informati 2016 6:06 [#/volume on in AM ] in source Amniotic data fluid Erythrocy 11.5 - % High No Nov 10 te 17.5 informati 2017 6:06 distribut on in AM ion width source [Entitic data volume] by Automated count Leukocyte 4.8 - K/MM3 Normal No Nov 10 s 10.8 informati 2016 6:06 [#/volume on in AM [...] mg/dl High No Nov 9 [Mass/vol informati 2016 8:42 ume] in on in PM Capillary source blood by data Glucomete r Glucose [Mass/volume] in Capillary blood by Glucometer Observa Value Referen Units Interpr Notes Date ti etation Range Glucose 70 - 110 mg/dl High No Nov 9 [Mass/vol informati 2016 5:03 ume] in on in PM Capillary source blood by data Glucomete r Sodium [Moles/volume] in Serum or Plasma Observa Value Referen Units Interpr Notes Date ti ce etation Range Sodium 136 - 145 mmoL/L High Nov 13 [Moles/vo alert 2016 2:10 lume] in CRITICAL PM Serum or RESULTS Plasma RESU LTS CALLED TO: SEDRICK 11/13/16 1443 [place] Hemoglobin & Hematocrit panel in Blood Observa Value Referen Units Interpr Notes Date tion ce etation Range Hematocri 42.0 - % Low No Nov 9 t [Volume 52.0 informati 2016 2:10 on in PM Fraction] source of Blood data Hemoglobi 14.1 - g/dL Low No Nov 9 n 18.0 informati 2017 2:10 [Mass/vol on in PM ume] in source Blood data Glucose [Mass/volume] in Capillary blood by Glucometer Observa Value Referen Units Interpr Notes Date etation Range Glucose 70 - 110 mg/dl High No Nov 9 [Mass/vol informati 2016 ume] in on in 12:12 PM Capillary source blood by data Glucomete r Glucose [Mass/volume] in Capillary blood by Glucometer Observa Value Referen Units Interpr Notes etation Range Glucose 70 - 110 mg/dl High No Nov 9 [Mass/vol informati 2016 6:36 ume] in on in AM Capillary source blood by data Glucomete r CBC W Auto Differential panel in Blood Observa Value Referen Units Interpr Notes etation Range Basophils 0 - 0.2 K/MM3 Normal No Nov 9 informati 2016 5:30 [#/volume on in AM ] in source Blood by data Automated count Basophils 0.1 - 2.0 % Normal No Nov 9 /100 informati 2017 5:30 leukocyte on in AM s in source Blood by data Automated count Eosinophi 0.0 - 0.4 K/mm3 Normal No Nov 9 ls informati 2016 5:30 [#/volume on in AM ] in source Blood by data Automated count Eosinophi 0.1 - % Normal No Nov 9 ls/100 12.0 informati 2016 5:30 leukocyte on in AM s in source Blood by data Automated count Granulocy 1.3 - 8.0 K/mm3 Normal No Nov 9 keyshawn informati 2016 5:30 [#/volume on in AM ] in source Blood by data Automated count Granulocy 37.0 - % Normal No Nov 9 keyshawn/100 80.0 informati 2016 5:30 leukocyte on in AM s in source Blood by data Automated count Hematocri 42.0 - % Low No Nov 9 t [Volume 52.0 informati 2016 5:30 on in AM Fraction] source of Blood data Hemoglobi 14.1 - g/dL Low No Nov 9 n 18.0 informati 2016 5:30 [Mass/vol on in AM ume] in source Blood data Lymphocyt 0.7 - 4.5 K/mm3 Low No Gildardo 9 es informati 2017 5:30 [#/volume on in AM ] in source Unspecifi data ed specimen by Automated count Lymphocyt 10 - 50 % Low No Gildardo 9 es informati 2017 5:30 [#/volume on in AM ] in source Unspecifi data ed specimen by Automated count Erythrocy 27 - 31.2 pg High No Gildardo 9 te mean informati 2017 5:30 corpuscul on in AM ar source hemoglobi data n [Entitic mass] Erythrocy 31.8 - g/dl Normal No Gildardo 9 te mean 35.4 informati 2017 5:30 corpuscul on in AM ar source hemoglobi data n concentra tion [Mass/vol ume] by Automated count Erythrocy 82.2 - fl High No Gildardo 9 te mean 97.8 informati 2017 5:30 corpuscul on in AM ar volume source [Entitic data volume] by Automated count Monocytes 0.1 - 1.0 K/mm3 Normal No Gildardo 9 informati 2017 5:30 [#/volume [...] 4.6 - 6.2 M/mm3 Low No Gildardo 9 keyshawn informati 2017 5:30 [#/volume on in AM ] in source Amniotic data fluid Erythrocy 11.5 - % High No Gildardo 9 te 17.5 informati 2017 5:30 distribut on in AM ion width source [Entitic data volume] by Automated count Leukocyte 4.8 - K/MM3 No No Gildardo 9 s 10.8 informati informati 2017 5:30 [#/volume on in on in AM ] in source source Blood data data Basic metabolic panel in Blood Observa Value Referen Units Interpr Notes Date tion ce etation Range Urea 7 - 18 mg/dL High No Gildardo 9 nitrogen informati 2017 5:30 [Mass/vol on in AM ume] in source Serum or data Plasma Calcium 8.5 - mg/dL Low No Nov 9 [Mass/vol 10.1 informati 2017 5:30 ume] in on in AM Serum or source Plasma data Chloride 98 - 107 mmoL/L High No Gildardo 9 [Moles/vo informati 2017 5:30 lume] in on in AM Serum or source Plasma data Carbon 21.0 - mmoL/L High No Nov 9 dioxide, 32.0 informati 2017 5:30 total on in AM [Moles/vo source lume] in data Serum or Plasma Creatinin 0.70 - mg/dL Normal No Gildardo 9 e 1.30 informati 2017 5:30 [Mass/vol on in AM ume] in source Serum or data Plasma Creatinin 50 - 200 ML/MIN Normal No Gildardo 9 e renal informati 2017 5:30 clearance on in AM source predicted data by Cockcroft -Gault formula Estimated >60 ML/MIN No REFERENCE Gildardo 9 informati RANGE: 2017 5:30 glomerula on in >60 AM r source ML/MIN/1. filtratio data 73 SQUARE n rate METERSIf (GF this patient is -A merican, then multiply theresult by 1.210. Glucose 74 - 106 mg/dL High No Nov 9 [Mass/vol informati 2017 5:30 ume] in on in AM Serum or source Plasma data Potassium 3.5 - 5.1 mmoL/L Low No Gildardo 9 informati 2017 5:30 [Moles/vo on in AM lume] in source Serum or data Plasma Sodium 136 - 145 mmoL/L High Nov 13 [Moles/vo alert 2016 5:30 lume] in CRITICAL AM Serum or RESULTS Plasma RESU LTS CALLED TO: [facility] 11/13/16 0550 Vamsi Cordero Blood product special preparation [Type] Observa Value Referen Units Interpr Notes Date tion ce etation Range Blood BLOOD No No No BLOOD Gildardo 9 product UNIT informa informa informa UNIT # 2017 RELEASE tion in tion in tion in : [id number] 1:20 AM special source source source 17 data data data [id number] prepara O tion POSRELE [Type] ASED 7 [...] antibod tion in tion in tion in 8:28 PM y source source source screen data data data [Presen ce] in Serum or Plasma Rh POSITIV No No No No Nov 12 [Type] E informa informa informa informa 2017 in tion in tion in tion in tion in 8:28 PM Blood source source source source data data data data ABO O No No No No Nov 12 group informa informa informa informa 2017 [Type] tion in tion in tion in tion in 8:28 PM in source source source [...] informa informa informa 2017 tch tion in ti in tion in tion in 8:28 PM [interp source source source source retatio data data data data n] by Immedia te spin Glucose [Mass/volume] in Capillary blood by Glucometer Observa Value Referen Units Interpr Notes Date ti ce etation Range Glucose 70 - 110 mg/dl High No Nov 8 [Mass/vol informati 2016 5:14 ume] in on in PM Capillary source blood by data Glucomete r Blood product special preparation [Type] Observa Value Referen Units Interpr Notes ce etation Range Blood BLOOD No No No BLOOD Nov 12 product UNIT informa informa informa UNIT # 2017 RELEASE tion in ti in ti in : W0382 4:58 PM special source source source 17 data data data [id number] prepara RELEASE tion D [Type] 7BRuy ludwig aO POSITIV E Hemoglobin & Hematocrit panel in Blood Observa Value Referen Units Interpr Notes etation Range Hematocri 42.0 - % Low No Nov 12 t [Volume 52.0 informati 2016 4:01 on in PM Fraction] source of Blood data Hemoglobi 14.1 - g/dL Low Nov 12 n 18.0 2017 4:01 [Mass/vol CRITICAL PM ume] in RESULTS Blood RESU LTS CALLED TO: RASHAD 11/12/16 1620 Nataly Garcia Glucose [Mass/volume] in Capillary blood by Glucometer Observa Value Referen Units Interpr Notes Date ce etation Range Glucose 70 - 110 mg/dl High No Nov 8 [Mass/vol informati 2016 ume] in on in 11:17 AM Capillary source blood by data Glucomete r CBC W Auto Differential panel in Blood Observa Value Referen Units Interpr Notes Date ti ce etation Range Granulocy 1.3 - 8.0 K/mm3 Normal No Nov 12 keyshawn informati 2017 7:56 [#/volume on in AM ] in source Blood by data Automated count Granulocy 37.0 - % Normal No Gildardo 8 keyshawn/100 80.0 informati 2017 7:56 leukocyte [...] No Nov 8 te mean 35.4 informati 2017 7:56 corpuscul on in AM [...] Normal No Nov 8 s 10.8 informati 2017 7:56 [#/volume on in AM ] in source Blood data Glucose [Mass/volume] in Capillary blood by Glucometer Observa Value Referen Units Interpr Notes Date tion ce etation Range Glucose 70 - 110 mg/dl High No Nov 8 [Mass/vol informati 2017 6:24 ume] in on in AM Capillary [...] High No Nov 7 [Mass/vol informati 2016 4:05 ume] in on in PM Capillary source blood by data Glucomete r Glucose [Mass/volume] in Capillary blood by Glucometer Observa Value Referen Units Interpr Notes Date tion ce etation Range Glucose 70 - 110 mg/dl High No Nov 7 [Mass/vol informati 2017 ume] in on in 11:55 AM Capillary source blood by data Glucomete r Glucose [Mass/volume] in Capillary blood by Glucometer Observa Value Referen Units Interpr Notes Date tion ce etation Range Glucose 70 - 110 mg/dl High No Nov 11 [Mass/vol informati 2016 6:45 ume] in on [...] 0.1 - 2.0 % Normal No Nov 7 /100 informati 2017 6:05 leukocyte on in AM s in source Blood by data Automated count Eosinophi 0.0 - 0.4 K/mm3 Normal No Nov 7 ls informati 2017 6:05 [#/volume on in AM ] in source Blood by data Automated count Eosinophi 0.1 - % Normal No Nov 7 ls/100 12.0 informati 2016 6:05 leukocyte on in AM s in [...] Hematocri 42.0 - % Low No Nov 7 t [Volume 52.0 informati 2017 6:05 on in AM Fraction] source of Blood data Hemoglobi 14.1 - g/dL Low No Nov 7 n 18.0 informati 2017 6:05 [Mass/vol on in AM ume] in source Blood data Lymphocyt 0.7 - 4.5 K/mm3 Normal No Nov 11 es informati 2017 [...] 1.7 - 9.3 % Normal No Nov 7 /100 informati 2017 6:05 leukocyte on in AM s in source Blood by data Automated count Platelet 7.4 - fl Normal No Nov 7 mean 10.4 informati 2017 6:05 volume on in AM [Entitic source volume] data in Blood by Automated count Platelets 142 - 424 K/mm3 Normal No Nov 7 informati 2017 6:05 [#/volume on in AM ] in source Blood data Erythrocy 4.6 - 6.2 M/mm3 Low No Gildardo 7 keyshawn informati 2016 6:05 [#/volume on in AM ] in source Amniotic data fluid Erythrocy 11.5 - % Normal No Nov 11 te 17.5 informati 2017 6:05 distribut on [...] 7 - 18 mg/dL High No Nov 11 nitrogen informati 2016 6:05 [Mass/vol on in AM ume] in source Serum or data Plasma Calcium 8.5 - mg/dL Low No Nov 11 [Mass/vol 10.1 informati 2016 6:05 ume] in on in AM Serum or source Plasma data Chloride 98 - 107 mmoL/L High No Nov 11 [Moles/vo informati 2016 6:05 lume] in on in AM Serum or source Plasma data Carbon 21.0 - mmoL/L Normal No Nov 11 dioxide, 32.0 informati 2017 6:05 total on in AM [Moles/vo source lume] in data Serum or Plasma Creatinin 0.70 - mg/dL Normal No Nov 11 e 1.30 informati 2017 6:05 [Mass/vol on in AM ume] in source Serum or data Plasma Creatinin 50 - 200 ML/MIN Normal No Nov 11 e renal informati 2017 6:05 clearance on in AM source predicted data by Cockcroft -Gault formula Estimated >60 ML/MIN No REFERENCE Nov 11 informati RANGE: 2017 6:05 glomerula on in >60 AM r source ML/MIN/1. filtratio data 73 SQUARE n rate METERSIf (GF this patient is -A merican, then multiply theresult by 1.210. Glucose 74 - 106 mg/dL High No Nov 11 [Mass/vol informati 2016 6:05 ume] in on in AM Serum or source Plasma data Potassium 3.5 - 5.1 mmoL/L Normal No Nov 7 informati 2017 6:05 [Moles/vo on in AM lume] in source Serum or data Plasma Sodium 136 - 145 mmoL/L High Gildardo 7 [Moles/vo alert 2017 6:05 lume] in CRITICAL AM Serum or RESULTS Plasma RESU LTS CALLED TO: JA 11/11/16 0723 June Suggs e Glucose [Mass/volume] in Capillary blood by Glucometer [...] Carbon 21.0 - mmoL/L Normal No Nov 6 dioxide, 32.0 informati 2017 6:10 total on in AM [Moles/vo source lume] in data Serum or Plasma Creatinin 0.70 - mg/dL No No Gildardo 6 e 1.30 informati informati 2017 6:10 [Mass/vol on in on in AM ume] in source source Serum or data data Plasma Creatinin 50 - 200 ML/MIN No No Gildardo 6 e renal informati informati 2017 6:10 clearance on in on in AM [...] 5.1 mmoL/L High No Nov 10 informati 2017 6:10 [Moles/vo on in AM lume] in source Serum or data Plasma Sodium 136 - 145 mmoL/L Normal No Nov 6 [Moles/vo informati 2017 6:10 lume] in on in AM Serum or source Plasma data CBC W Auto Differential panel in Blood Observa Value Referen Units Interpr Notes Date tion ce etation Range Basophils 0 - 0.2 K/MM3 Normal No Nov 10 informati 2016 6:10 [#/volume on in AM ] in source Blood by data Automated count Basophils 0.1 - 2.0 % Normal No Nov 6 /100 informati 2017 6:10 leukocyte on in AM s in source Blood by data Automated count Eosinophi 0.0 - 0.4 K/mm3 Normal No Nov 6 ls informati 2017 6:10 [#/volume on in AM ] in source Blood by data Automated count Eosinophi 0.1 - % Normal No Nov 6 ls/100 12.0 informati 2017 6:10 leukocyte on in AM s in source Blood by data Automated count Granulocy 1.3 - 8.0 K/mm3 High No Nov 6 keyshawn informati 2017 6:10 [#/volume on in AM ] in source Blood by data Automated count Granulocy 37.0 - % Normal No Nov 6 keyshawn/100 80.0 informati 2017 6:10 leukocyte on in AM s in source Blood by data Automated count Hematocri 42.0 - % Low No Nov 6 t [Volume 52.0 informati 2017 6:10 on in AM Fraction] source of Blood data Hemoglobi 14.1 - g/dL Low No Nov 10 n 18.0 informati 2017 6:10 [Mass/vol on [...] Erythrocy 82.2 - fl High No Nov 6 te mean 97.8 informati 2017 6:10 [...] Leukocyte 4.8 - K/MM3 High No Gildardo 6 s 10.8 informati 2017 6:10 [#/volume on in AM ] in source Blood data Glucose [Mass/volume] in Capillary blood by Glucometer Observa Value Referen Units Interpr Notes Date tion ce etation Range Glucose 70 - 110 mg/dl High No Gildardo 6 [Mass/vol informati 2017 6:09 ume] in [...] MMOL/L Low No Gildardo 5 te informati 2016 3:40 [Moles/vo on in PM lume] in source Venous data blood Carbon 41 - 51 MMHG Low No Gildardo 5 dioxide informati 2016 3:40 [Partial on in PM pressure] source in data Venous blood pH of 7.31 - MMOL/L High No Gildardo 5 Venous 7.41 informati 2016 3:40 blood on in PM source data [...] Gildardo 5 [Mass/vol DETECTD informati informati informati 2017 2:55 ume] in on in on in on in PM Serum or source source source Plasma data data data CBC W Auto Differential panel in Blood Observa Value Referen Units Interpr Notes Date tion ce etation Range Basophils 0 - 0.2 K/MM3 Normal No Gildardo 5 inform2016 2:55 [#/volume on in PM ] in source Blood by data Automated count Basophils 0.1 - 2.0 % Normal No Gildardo 5 /100 informati 2016 2:55 leukocyte on in PM s in source Blood by data Automated count Eosinophi 0.0 - 0.4 K/mm3 Normal No Gildardo 5 ls informati 2016 2:55 [#/volume on in PM [...] Hematocri 42.0 - % Low No Nov 5 t [Volume 52.0 informati 2016 2:55 on in PM Fraction] source of Blood data Hemoglobi 14.1 - g/dL Low No Gildardo 5 n 18.0 informati 2016 2:55 [Mass/vol on in PM ume] in source Blood data Lymphocyt 0.7 - 4.5 K/mm3 Normal No Nov 5 es informati 2016 2:55 [#/volume on in PM ] in source Unspecifi data ed specimen by Automated count Lymphocyt 10 - 50 % Low No Nov 5 es informati 2017 2:55 [#/volume on in PM ] in source Unspecifi data ed specimen by Automated count Erythrocy 27 - 31.2 pg High No Nov 5 te mean informati 2016 2:55 corpuscul on in PM ar source hemoglobi data n [Entitic mass] Erythrocy 31.8 - g/dl Normal No Nov 09 te mean 35.4 informati 2016 2:55 corpuscul on in PM ar source hemoglobi data n concentra tion [Mass/vol ume] by Automated count Erythrocy 82.2 - fl High No Gildardo 5 te mean 97.8 informati 2017 2:55 corpuscul on in PM ar volume source [Entitic data volume] by Automated count Monocytes 0.1 - 1.0 K/mm3 High No Gildardo 5 informati 2016 2:55 [#/volume on in PM ] in source Blood by data Automated count Monocytes 1.7 - 9.3 % Normal No Gildardo 5 /100 informati 2017 2:55 leukocyte on in PM s in source Blood by data Automated count Platelet 7.4 - fl Normal No Gildardo 5 mean 10.4 informati 2017 2:55 volume on in PM [Entitic source [...] Erythrocy 11.5 - % Normal No Nov 5 te 17.5 informati 2016 2:55 distribut on in PM ion width source [Entitic data volume] by Automated count Leukocyte 4.8 - K/MM3 High No Gildardo 5 s 10.8 informati 2017 2:55 [#/volume on in PM ] in source Blood data Differential panel, method unspecified - Observa Value Referen Units Interpr Notes Date tion ce etation Range LYMPH 9 10 - 50 % Low No Gildardo 5 informa 2017 tion in 2:55 PM source data Monocytes 2 - 9 % High No Gildardo 5 /100 informati 2017 2:55 leukocyte on in PM s in source Blood by data Automated count Platele SLIGHT No No No No Gildardo 5 ts DECREAS informa informa informa informa 2017 [Presen E tion in tion in tion in tion in 2:55 PM ce] in source source source source Blood data data data data by Light microsc opy Neutrophi 42 - 76 % High No Gildardo 5 ls informati 2016 2:55 [#/volume on in PM ] in source Blood by data Automated count Cells No #CELLS No No Gildardo 5 Counted informati informati informati 2017 2:55 Total [#] on in on in on in PM in Blood source source source data data data Lactate [Moles/volume] in Blood Observa Value Referen Units Interpr Notes Date tion ce etation Range Lactate 0.4 - 2.0 mmol/L High An Gildardo 5 [Moles/vo elevated 2017 2:55 lume] in Lactic PM Blood Acid is suggestiv e of sepsis and shouldbe repeated within 6 hours of initial testing. Comprehensive metabolic 2000 panel in Serum or Plasma Observa Value Referen Units Interpr Notes Date tion ce etation Range Albumin/G 1.1 - 1.8 No Low No Gildardo 5 lobulin informati informati 2017 2:55 [Mass on in on in PM [...] Calcium 8.5 - mg/dL Low No Nov 09 [Mass/vol 10.1 informati 2016 2:55 ume] in on in PM Serum or source Plasma data Chloride 98 - 107 mmoL/L Normal No Nov 09 [Moles/vo informati 2016 2:55 lume] in on in PM Serum or source Plasma data Carbon 21.0 - mmoL/L Normal No Nov 09 dioxide, 32.0 informati 2017 2:55 total on in PM [Moles/vo source lume] in data Serum or Plasma Creatinin 0.70 - mg/dL High No Nov 09 e 1.30 informati 2017 2:55 [Mass/vol on in PM ume] in source Serum or data Plasma Creatinin 50 - 200 ML/MIN Low No Nov 09 e renal informati 2016 2:55 clearance on in PM source predicted data by Cockcroft -Gault formula Estimated >60 ML/MIN No REFERENCE Nov 09 informati RANGE: 2017 2:55 glomerula on in >60 PM r source ML/MIN/1. filtratio data 73 SQUARE n rate METERSIf (GF this patient is -A merican, then multiply theresult by 1.210. Globulin 1.3 - 3.2 gm/dL High No Nov 09 [Mass/vol informati 2016 2:55 ume] in on in PM Serum source data Glucose 74 - 106 mg/dL High Nov 09 [Mass/vol 2016 2:55 ume] in CRITICAL PM Serum or RESULTS Plasma RESU LTS CALLED TO: SEAMUS GONZALES David 11/09/16 1527 Nataly Garcia Potassium 3.5 - 5.1 mmoL/L Normal No Nov 09 informati 2016 2:55 [Moles/vo on in PM lume] in source Serum or data Plasma Sodium 136 - 145 mmoL/L Normal No Nov 09 [Moles/vo informati 2017 2:55 lume] in on in PM Serum or source Plasma data Aspartate 15 - 37 U/L Low No Nov 09 informati 2016 2:55 aminotran on in PM sferase source [Enzymati data c activity/ volume] in Serum or Plasma Alanine 12 - 78 U/L Normal No Nov 09 aminotran informati 2017 2:55 sferase on in PM [Enzymati source [...]
--- OUTSIDE RECORDS SUMMARY | 2017-04-20 04:20 | External Medical Summary Rpt ---
[...] Date tion ce etation Range COMMENTS TO LEDGER POSTER: PLEASE CALL PHARMACY WITH RESULTS Vancomyci 5.0 [...] RESU LTS CALLED TO: SEDRICK 11/13/16 1443 [place] Hemoglobin & Hematocrit panel in Blood [...] or RESULTS Plasma RESU LTS CALLED TO: [facility] 11/13/16 0550 Vamsi Cordero Blood product special preparation [Type] Observa Value Referen Units Interpr Notes Date tion ce etation Range Blood BLOOD No No No BLOOD Gildardo 9 product UNIT informa informa informa UNIT # 2017 RELEASE tion in tion in tion in : W0382 1:20 AM special source source source 17 data data data [id number] prepara O tion POSRELE [Type] ASED 7 [...] source source source 17 data data data [id number] prepara RELEASE tion D [Type] 7BRuy ludwig [...] Automated count Cells No #CELLS No No Giladrdo 5 Counted informati informati informati 2017 2:55 [...]
[2017-04-20 04:26] LABS: URINE BILIRUBIN - DIPSTICK NEGATIVE (NEG); URINE BLOOD NEGATIVE (NEG)
[2017-04-20 04:27] LABS: LYMPH # 0.5 K/mm3 (0.7-4.5); LYMPH % 4.8 % (10-50)
[2017-04-20 04:37] LABS: HEMOGLOBIN 15.3 g/dL (14.1-18.0)
[2017-04-20 04:43] LABS: BUN 59 mg/dL (7-18)
[2017-04-20 04:44] LABS: GFR (ESTIMATED) 18 ML/MIN (>60)
--- NOTE | 2017-04-20 04:59 | RADIOLOGY REPORT PS360 ---
CHEST-PORTABLE HISTORY: Shortness of breath SOB ORDERING PHYSICIAN: Maurice Cloud MD PATIENT AGE: 67 years COMPARISON: 02/02/2017 FINDINGS: The previously noted opacification of the left hemithorax has shown some improvement. There however remains consolidation in the left perihilar region and left lower lobe consistent with residual pneumonia and/or volume loss. There is cardiomegaly without failure. The right lung is clear. IMPRESSION: Left perihilar pneumonia with left lower lobe pneumonia and/or volume loss.
[2017-04-20 06:27] LABS: NEUTROPHILS 85 % (42-76)
--- NOTE | 2017-04-20 07:20 | HISTORY AND PHYSICAL REPORT ---
Demographics: Admit date: 04/20/17 Chief complaint: Altered mental status PRIMARY DIAGNOSIS: HCAP Allergies: Coded Allergies: tuberculin, purified protein deriva (tuberculin,purif.prot.deriv.) (04/20/17) History of present illness: History of present illness: 67-year-old male with medical history significant for prior stroke leaving him bed bound and chronically debilitated was sent to the emergency department by the [facility] where he [facility] due to change in his condition. Patient was found to be febrile with what appeared to be dyspnea and he was not responsive to vocal or tactile stimulus. In the emergency department the patient had very high fevers along with a blood sugar in the 700s, hypernatremia, acute kidney failure, elevated troponin and evidence of pneumonia on chest x-ray. Patient is likely septic and has been admitted. At this time his sister is at bedside. Past medical history: Family HX Family Hx Insignificant No Diabetes Yes CAD Yes Hypertension Yes Hyperlipidemia Yes Cancer No TB No Immunization HX DT/Tetanus Unknown Flu [id number] Pneumonia Unknown TB Test in last year Yes Result Negative General CAD? No Angina: No OR: No Hypertension? Yes Hyperlipidemia? No CHF? No DVT? No PE? No COPD? No Asthma? No Anemia? Yes GERD? No Gastric ulcers? No GI Bleed? No Hernia? No Thyroid Problems? No Hypothyroidism? No CVA? Yes Seizures? Yes Diabetes? Yes Insulin Dependent: No Insulin Pump: No Home FSBS? No Renal Insuffiency? Yes UTI? Yes Stones? No BPH? No GB Disease: No Nephritic Syndrome? No Asplenia? No Hepatitis? No Sickle Cell Disease? No Arthritis? No Migraines? No Cataracts? No Glaucoma? No MRSA? Yes HIV? No TB? No Anxiety? No Depression? No Cancer? No More? Yes Additional hx: SUBARACHNOID HEMORRHAGE, HX A FIB DEMENITA Past Surgical HX Previous Surgery?Y G-TUBE PLACEMENT Current home meds: Reported Medications No Known Home Medications Social Hx: Smoking HX Tobacco No Packs/day N/A Are you/the child exposed to second-hand smoke: No Alcohol Alcohol: No Hx of Drug Use Drug Use? No Patien't marital status is single Review of systems: Constitutional fever. Respiratory see HPI. Cardiovascular no symptoms reported Gastrointestinal/Abdominal no symptoms reported Genitourinary no symptoms reported. Musculoskeletal joint pain, muscle stiffness. Neurological Yes: weakness, seizure disorder. Exam: Lab data for last 24 hours: Laboratory Tests 04/20/17399: Lactic Acid 6.9 H 04/20/17399: Sodium 153 *H, Potassium 4.0, Chloride 111 H, Carbon Dioxide 34 H, BUN 59 H, Creatinine 3.4 H, Estimated Creat Clear 20 L, Estimated GFR (MDRD) 18, Glucose 726 *H, Calcium 9.6, Total Bilirubin 0.7, AST 14 L, ALT 25, Alkaline Phosphatase 136 H, Creatine Kinase 102, CK-MB (CK-2) Rel Index 0.5, CK and CKMB Interp < 0.5, Troponin I 1.46 H, Total Protein 8.6 H, Albumin 3.0 L, Globulin 5.6 H, Albumin/Globulin Ratio 0.5 L, WBC 11.2 H, RBC 5.26, Hgb 15.3, Hct 53.1 H, MCV 101.0 H, RDW 16.8, Plt Count 192, MPV 11.8 H, Gran % 87.8 H, Gran # 9.8 H, Total Counted 100, Lymphocytes % 4.8 L, Monocytes % 6.4, Eosinophils % 0.2, Basophils % 0.8, Neutrophils 85 H, Lymphocytes (Manual) 10, Lymphocytes # 0.5 L, Monocytes (Manual) 5, Monocytes # 0.7, Eosinophils # 0.0, Basophils # 0.1, Platelet Estimate NORMAL, Hypochromasia 1+, Anisocytosis 1+, PUBS MCHC 28.9 L, MCH 29.2 04/20/17344: Urine Color YELLOW, Urine Appearance CLEAR, Urine pH 5.5, Ur Specific [place] 1.020, Urine Protein 2+ H, Urine Ketones TRACE H, Urine Blood NEGATIVE, Urine Nitrate NEGATIVE, Urine Bilirubin NEGATIVE, Urine Urobilinogen 0.2, Ur Leukocyte Esterase NEGATIVE, Urine WBC OCC, Urine Bacteria 1+, Urine Glucose 3+ H 04/20/176: ABG pH 7.38, ABG pCO2 (Temp Corrct 49.0 H, ABG pO2 (Temp Correct 72.0 L, ABG HCO3 28.0 H, ABG Total CO2 29.0 H, ABG O2 Sat (Calculated) 93, ABG Base Excess 3.1 H, Casey Test NON APPLICABLE, Blood Gas Comments RIGHT BRACHIAL Microbiology 04/20 400 BLOOD: Anaerobic Blood Culture - RECD 04/20 400 BLOOD: Aerobic Blood Culture - RECD 04/20 400 BLOOD: Anaerobic Blood Culture - RECD 04/20 400 BLOOD: Aerobic Blood Culture - RECD Admission vital signs: 1ST Vital Signs Result Date Time Pulse Ox 86 04/20 250 B/P 125/60 04/20 250 O2 Flow Rate 15 04/20 250 Temp 105.2 04/20 250 Pulse 144 04/20 250 Resp 26 04/20 250 O2 Delivery OXYGEN 04/20 12 Additional information: Sepsis focused exam performed.Patient is lying in bed on his LEFT side. He does not respond to vocal or tactile stimulus. Pupils are pinpoint and minimally reactive. Oropharynx is dry. Face mask is in place providing supplemental oxygen. Respirations are shallow. Breath sounds are rhonchus throughout. Heart is tachycardic. Abdomen reveals patent G-tube. Extremities are without any edema. Neurologically the patient has depressed level of consciousness. He makes no spontaneous movements Plan: Problem List 1. HCAP (healthcare-associated pneumonia) 2. Sepsis 3. ARF (acute renal failure) 4. Non-STEMI (non-ST elevated myocardial infarction) 5. Diabetes mellitus 6. Hypernatremia Plan: 1. Patient has been admitted and placed on broad spectrum antibiotic coverage. 2. Continue Keppra for seizure precautions and add Ativan should the patient started to seize 3. Patient be given carvedilol through his G-tube and lisinopril 4. Give IV fluids for acute renal failure 5. Fingersticks every 2 hours with high intensity sliding scale insulin coverage for the next 8 hours to bring glucose down to more acceptable ranges 6. Patient's prognosis overall is very poor and I had a long discussion with his sister. Keeping the patient comfortable is high priority in his care. We will reassess in 24 hours Problem List 1. HCAP (healthcare-associated pneumonia) 2. Sepsis 3. ARF (acute renal failure) 4. Non-STEMI (non-ST elevated myocardial infarction) 5. Diabetes mellitus 6. Hypernatremia Plan: 1. Patient has been admitted and placed on lumbar on spectrum antibiotic coverage. 2. Continue Keppra for seizure precautions and add Ativan should the patient started to seize 3. Patient be given carvedilol through his G-tube and lisinopril 4. Give IV fluids for acute renal failure 5. Fingersticks every 2 hours with high intensity sliding scale insulin coverage for the next 8 hours to bring glucose down to more acceptable ranges 6. Patient's prognosis overall is very poor and I had a long discussion with his sister. Keeping the patient comfortable is high priority in his care. We will reassess in 24 hours at 0773
--- NOTE | 2017-04-20 07:29 | PHARMACY CLINIC NOTE ---
Patient Demographics Patient Demographics Admission date: 04/20/17 Date: 04/20/17 Time: 0728 Allergies Coded Allergies: tuberculin, purified protein deriva (tuberculin,purif.prot.deriv.) (04/20/17) HEIGHT- FT: 5 IN: 10.00 K.096 VTE General Information Labs: Laboratory Tests 04/20 0400 Hematology Hgb (14.1 - 18.0 g/dL) 15.3 Hct (42.0 - 52.0 %) 53.1 H Plt Count (142 - 424 K/mm3) 192 Disclaimer The following section includes nursing documentation that has been pulled in for pharmacy review. Patient's VTE score: 8 Patient's VTE Risk: MOD RISK Clinical trial participant? No VTE prophylaxis NQF [id number] VTE prophylaxis ordered? Yes Type of prophylaxis/treatment: ARACELI at 0728
--- NOTE | 2017-04-20 09:04 | CONSULT NOTE ---
Pharmacokinetic Consult Date of consult: 04/20/17 Time of consult: 0900 Referring provider: Asher ROQUE Reason for consult: FROM PHYSICIAN H&P: 67-year-old male with medical history significant for prior stroke leaving him bed bound and chronically debilitated was sent to the emergency department by the [facility] due to change in his condition. Patient was found to be febrile with what appeared to be dyspnea and he was not responsive to vocal or tactile stimulus. In the emergency department the patient had very high fevers along with a blood sugar in the 700s, hypernatremia, acute kidney failure, elevated troponin and evidence of pneumonia on chest x-ray. Pharmacy consulted to dose vancomycin and zosyn for poor renal function Allergies: Coded Allergies: tuberculin, purified protein deriva (tuberculin,purif.prot.deriv.) (04/20/17) Home Medications: Active Scripts Diazepam (Diastat Acudial) 10 MG TN PRN PRN seizure #2 EACH Ref 2 Prov: 11/23/15 Pantoprazole Sodium (Protonix) 40 MG GT BID #60 Prov: 11/14/16 NUT.SUP,SPEC.FRM,L-FR,IRON/FOS (Twocal Hn Liquid) 35 ML PO Q1HP PRN tube feeds #1 BOT Ref 11 Prov: 02/04/17 CLINDAMYCIN PALMITATE HCL (Clindamycin Pediatric) 20 ML PO Q8 #420 ML Prov: 02/04/17 Reported Medications Baclofen 10 MG GT BID Acetaminophen (Tylenol XS 500MG) 2 TABS GT Q4-6HP PRN FEVER/PAIN Glipizide (Glipizide 5MG) 5 MG GT DAILY LACTOSE-REDUCED FOOD/FIBER (Isosource 1.5 Jey Liquid) 250 ML GT BID Levetiracetam (Keppra) 1,000 MG GT BID TETRAHYDROZOLINE HCL (Opti-Clear 15 Ml) 2 DROP OP TID AMINO ACIDS/PROTEIN HYDROLYS (Pro-Stat Profile Liquid) 237 ML GT DAILY LACTOSE-REDUCED FOOD/FIBER (Isosource 1.5 Ejy Tube Feed Lq) 50 ML FT E12 LISINOPRIL (Lisinopril) 10 MG PO DAILY Metoclopramide Hydrochloride (Metoclopramide HCl) 5 MG GT QID #120 TAB LOPERAMIDE HCL (Loperamide) 2 MG GT Q4HP Senna Pod (Senokot Tablet) 8.6 MG GT DAILY Height (feet): 5 Height (inches): 10.00 Medical History: CAD? No Angina: No MS: No Hypertension? Yes Hyperlipidemia? No CHF? No DVT? No PE? No COPD? No Asthma? No Anemia? Yes GERD? No Gastric ulcers? No GI Bleed? No Hernia? No Thyroid Problems? No Hypothyroidism? No CVA? Yes Seizures? Yes Diabetes? Yes Insulin Dependent: No Insulin Pump: No Home FSBS? No Renal Insuffiency? Yes UTI? Yes Stones? No BPH? No GB Disease: No Nephritic Syndrome? No Asplenia? No Hepatitis? No Sickle Cell Disease? No Arthritis? No Migraines? No Cataracts? No Glaucoma? No MRSA? Yes HIV? No TB? No Anxiety? No Depression? No Cancer? No More? Yes Additional hx: SUBARACHNOID HEMORRHAGE, HX A FIB DEMENITA Labs: Laboratory Tests 04/20/17 0826: Lactic Acid 4.2 H 04/20/17 0706: Glucose 582 *H 04/20/17 0400: Lactic Acid 6.9 H 04/20/17 0400: Sodium 153 *H, Potassium 4.0, Chloride 111 H, Carbon Dioxide 34 H, BUN 59 H, Creatinine 3.4 H, Estimated Creat Clear 20 L, Estimated GFR (MDRD) 18, Glucose 726 *H, Calcium 9.6, Total Bilirubin 0.7, AST 14 L, ALT 25, Alkaline Phosphatase 136 H, Creatine Kinase 102, CK-MB (CK-2) Rel Index 0.5, CK and CKMB Interp < 0.5, Troponin I 1.46 H, Total Protein 8.6 H, Albumin 3.0 L, Globulin 5.6 H, Albumin/Globulin Ratio 0.5 L, WBC 11.2 H, RBC 5.26, Hgb 15.3, Hct 53.1 H, MCV 101.0 H, RDW 16.8, Plt Count 192, MPV 11.8 H, Gran % 87.8 H, Gran # 9.8 H, Total Counted 100, Lymphocytes % 4.8 L, Monocytes % 6.4, Eosinophils % 0.2, Basophils % 0.8, Neutrophils 85 H, Lymphocytes (Manual) 10, Lymphocytes # 0.5 L, Monocytes (Manual) 5, Monocytes # 0.7, Eosinophils # 0.0, Basophils # 0.1, Platelet Estimate NORMAL, Hypochromasia 1+, Anisocytosis 1+, PUBS MCHC 28.9 L, MCH 29.2 04/20/17 0345: Urine Color YELLOW, Urine Appearance CLEAR, Urine pH 5.5, Ur Specific Blairs 1.020, Urine Protein 2+ H, Urine Ketones TRACE H, Urine Blood NEGATIVE, Urine Nitrate NEGATIVE, Urine Bilirubin NEGATIVE, Urine Urobilinogen 0.2, Ur Leukocyte Esterase NEGATIVE, Urine WBC OCC, Urine Bacteria 1+, Urine Glucose 3+ H 04/20/17 0316: ABG pH 7.38, ABG pCO2 (Temp Corrct 49.0 H, ABG pO2 (Temp Correct 72.0 L, ABG HCO3 28.0 H, ABG Total CO2 29.0 H, ABG O2 Sat (Calculated) 93, ABG Base Excess 3.1 H, Casey Test NON APPLICABLE, Blood Gas Comments RIGHT BRACHIAL Microbiology 04/20 400 BLOOD: Anaerobic Blood Culture - RECD 04/20 400 BLOOD: Aerobic Blood Culture - RECD 04/20 400 BLOOD: Anaerobic Blood Culture - RECD 04/20 400 BLOOD: Aerobic Blood Culture - RECD Problem List: 1. Pneumonia Chronic 2. Febrile illness, acute Plan: Patient recv'd vancomycin 1000mg (15mg/kg) in the ER this am @0430. Pt also recv 'd Zosyn 4.5gm once in the ER @ 0500. Will continue Vancomycin 1000mg IV every 36 hours (next dose @1600 on 04/21/17) and Zosyn 2.25gm IV q6h. Pharmacy will monitor pt's renal function and condition daily and adjust as neccessary. at 0904
[2017-04-21 00:30] VITALS: BP 92/52
[2017-04-21 04:11] VITALS: BP 93/43
--- NOTE | 2017-04-21 08:14 | ACUTE CARE PROGRESS NOTE (QUA) ---
Progress Notes Subjective Date 04/21/17 Time 0812 Note Patient's condition is unchanged. He became hypotensive yesterday evening and remained hypotensive throughout the night with low-grade fevers. His sister is at bedside and believes he is actually having more difficulty breathing today and yesterday morning. Vital signs reviewed. Patient is tachypneic with very shallow respirations. Poor aeration of the lungs. Heart rate is tachycardic. Abdomen reveals patent G-tube. After discussion with the patient's sister she has requested he be kept comfortable and we withdraw all other medical interventions. He will be kept on Keppra through his G-tube and Ativan and morphine have been ordered for seizures or pain respectively. Objective Findings Last VS-Temp:101.8 B/P:93/43 Pulse:111 Resp:30 SaO2:90 OXYGEN Last weight lbs:150 oz:2 K.096 Method:Bed Scales Laboratory Tests 04/20/17 2201: POC Glucose 113 H 04/20/17 1733: POC Glucose 241 H 04/20/17 1220: POC Glucose 441 *H 04/20/17 1022: POC Glucose 475 *H 04/20/17 0826: Lactic Acid 4.2 H Assessment/Plan Problem List 1. HCAP (healthcare-associated pneumonia) 2. Sepsis 3. ARF (acute renal failure) Qualifiers: Acute renal failure type: unspecified Qualified Code: N17.9 - Acute kidney failure, unspecified 4. Non-STEMI (non-ST elevated myocardial infarction) 5. 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 Hypernatremia Patient condition Deteriorating This inpt stay is expected to cross 2 MNs from start of care Yes at 0813
--- NOTE | 2017-04-21 08:14 | ACUTE CARE PROGRESS NOTE (QUA) ---
Progress Notes Subjective Date 04/21/17 Time 0812 Note Patient's condition is unchanged. He became hypotensive yesterday evening and remained hypotensive throughout the night with low-grade fevers. His sister is at bedside and believes he is actually having more difficulty breathing today and yesterday morning. Vital signs reviewed. Patient is tachypneic with very shallow respirations. Poor aeration of the lungs. Heart rate is tachycardic. Abdomen reveals patent G-tube. After discussion with the patient's sister she has requested he be kept comfortable and we withdraw all other medical interventions. He will be kept on Keppra through his G-tube and Ativan and morphine have been ordered for seizures or pain respectively. Objective Findings Last VS-Temp:101.8 B/P:93/43 Pulse:111 Resp:30 SaO2:90 OXYGEN Last weight lbs:150 oz:2 K.096 Method:Bed Scales Laboratory Tests 04/20/17 2201: POC Glucose 113 H 04/20/17 1733: POC Glucose 241 H 04/20/17 1220: POC Glucose 441 *H 04/20/17 1022: POC Glucose 475 *H 04/20/17 0826: Lactic Acid 4.2 H Assessment/Plan Problem List 1. HCAP (healthcare-associated pneumonia) 2. Sepsis 3. ARF (acute renal failure) Qualifiers: Acute renal failure type: unspecified Qualified Code: N17.9 - Acute kidney failure, unspecified 4. Non-STEMI (non-ST elevated myocardial infarction) 5. 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 Hypernatremia Patient condition Deteriorating This inpt stay is expected to cross 2 MNs from start of care Yes at 0813
[2017-04-21 08:17] VITALS: BP 86/41
[2017-04-21 08:33] VITALS: BP 86/41
[2017-04-21 19:56] VITALS: BP 88/57
[2017-04-21 20:00] VITALS: BP 88/57
--- NOTE | 2017-04-22 07:37 | Discharge Summary ---
Demographics Admit date: 04/20/17 Discharge date: 04/21/17 Discharge diagnoses Problem List 1. HCAP (healthcare-associated pneumonia) 2. Sepsis 3. ARF (acute renal failure) 4. Non-STEMI (non-ST elevated myocardial infarction) 5. Diabetes mellitus 6. Hypernatremia History of present illness History of present illness 67-year-old male with medical history significant for prior stroke leaving him bed bound and chronically debilitated was sent to the emergency department by the [facility] where he [facility] due to change in his condition. Patient was found to be febrile with what appeared to be dyspnea and he was not responsive to vocal or tactile stimulus. In the emergency department the patient had very high fevers along with a blood sugar in the 700s, hypernatremia, acute kidney failure, elevated troponin and evidence of pneumonia on chest x-ray. Patient is likely septic and has been admitted. At this time his sister is at bedside. Patient was admitted and broad-spectrum antibiotics were started. Patient's prognosis was poor from admission and this was discussed with his sister. Over initial 24 hours of medical management patient did not show any signs of improvement and actually deteriorated. At that time his sister requested comfort measures only and we complied with this request. Patient was placed on when necessary morphine and Ativan for shortness of breath and seizures respectively. His Keppra was continued. Patient later today. Cause of : Healthcare acquired pneumonia and sepsis Medications Medications: Discharge meds are as noted. Follow up Follow up in office in: none with: Maurice Cloud MD at 0788
== END 2017-04-21 23:00 | disposition expired | DRG 193 ==
LOC: ER 02:46 → 2ND 04:11
PROVIDERS: Emergency Medicine
DX: J18.9 Pneumonia, unspecified organism (principal); A41.9 Sepsis, unspecified organism; I21.4 Non-ST elevation (NSTEMI) myocardial infarction; N17.9 Acute kidney failure, unspecified; E87.0 Hyperosmolality and hypernatremia; E11.9 Type 2 diabetes mellitus without complications; I10 Essential (primary) hypertension; Y95 Nosocomial condition; G83.9 Paralytic syndrome, unspecified; Z74.01 Bed confinement status; I69.365 Other paralytic syndrome following cerebral infarction, bilateral
CPT/HCPCS: J2543; J3370